=== PATIENT | male | born 1935 | race Caucasian/White ===

== ENCOUNTER 2021-03-17 20:49 | Emergency (ER) | payer MEDICARE, SELFPAY ==
[2021-03-17 20:51] VITALS: BP 128/72; PULSE 97; RESP 17; TEMP 36.6; O2SAT 99; BMI 21.5
[2021-03-17 21:00] VITALS: BP 126/78; PULSE 89; O2SAT 98
--- NOTE | 2021-03-17 21:22 | XR_ITS ---
PROCEDURE INFORMATION: Exam: XR Chest Exam date and time: 03/17/2021 9:22 PM Age: 85 years old Clinical indication: Shortness of breath; Patient HX: SOA, smoker, copd TECHNIQUE: Imaging protocol: XR of the chest. Views: 2 views. COMPARISON: CR CXR2V XR chest 2V 05/03/2018 3:25 PM FINDINGS: Lungs: There is a right infrahilar opacity which is similar to the prior exam but appears slightly denser. The left lung is clear. Pleural spaces: No sizable effusion or pneumothorax. Heart/Mediastinum: The cardiomediastinal silhouette is stable. Bones/joints: Unremarkable. IMPRESSION: Right infrahilar opacities similar to the prior exam but appears denser on today's exam. This may represent an infectious or inflammatory process however a hilar lesion cannot be excluded. This could be further characterized with chest CT with intravenous contrast.
--- NOTE | 2021-03-17 21:34 | HMH.EDEXTP ---
ED Disposition Clinical Impression: CHF (congestive heart failure) Qualifiers: Heart failure type: unspecified Heart failure chronicity: unspecified Qualified Code(s): I50.9 - Heart failure, unspecified COPD (chronic obstructive pulmonary disease) Qualifiers: COPD type: unspecified COPD Qualified Code(s): J44.9 - Chronic obstructive pulmonary disease, unspecified Pulmonary emboli Qualifiers: Pulmonary embolism type: unspecified Chronicity: unspecified Acute cor pulmonale presence: without acute cor pulmonale Qualified Code(s): I26.99 - Other pulmonary embolism without acute cor pulmonale Disposition: Home, Self-Care Condition on Discharge: Good Instructions: DI for Pulmonary Embolism, DI for Heart Failure Additional Instructions: please see card friday and call pcp Referrals: Harriett Arciniega APRN [Primary Care Provider] - - Critical Care Critical Care Time: No Attestation: On 03/17/21, the high probability of a clinically significant, sudden or life threatening deterioration of the following system(s) required my full and direct attention, intervention and personal management. The time I documented below is in addition to time spent performing reported procedures but includes the following listed in this critical care notation. Medical Decision Making - Medical Records Medical records reviewed: Yes: I reviewed the patient's medical records. - Cornel Inquiry Pt receiving controlled substance: No Vital Signs: 03/17/21 20:51 03/17/21 21:00 03/17/21 22:08 Temperature 97.8 F Temperature Source Oral Pulse Rate 89 69 Pulse Rate [Right] 97 H Respiratory Rate 17 Blood Pressure 126/78 121/79 Blood Pressure [Right Arm] 128/72 Blood Pressure Mean 88 Blood Pressure Mean [Right Arm] 90 Blood Pressure Source [Right Arm] Automatic Cuff 02 Sat by Pulse Oximetry 99 98 98 Oxygen Delivery Method Room Air Room Air 03/17/21 22:31 03/17/21 23:00 03/17/21 23:47 Temperature Temperature Source Pulse Rate 91 H 90 87 Pulse Rate [Right] Respiratory Rate Blood Pressure 132/69 117/79 122/73 Blood Pressure [Right Arm] Blood Pressure Mean Blood Pressure Mean [Right Arm] Blood Pressure Source [Right Arm] 02 Sat by Pulse Oximetry 99 98 99 Oxygen Delivery Method 03/18/21 00:01 03/18/21 00:31 03/18/21 01:01 Temperature Temperature Source Pulse Rate 77 88 89 Pulse Rate [Right] Respiratory Rate Blood Pressure 113/77 119/68 121/88 Blood Pressure [Right Arm] Blood Pressure Mean Blood Pressure Mean [Right Arm] Blood Pressure Source [Right Arm] 02 Sat by Pulse Oximetry 95 97 96 Oxygen Delivery Method 03/18/21 01:30 03/18/21 02:03 03/18/21 02:31 Temperature Temperature Source Pulse Rate 94 H 82 90 Pulse Rate [Right] Respiratory Rate Blood Pressure 130/83 127/76 110/73 Blood Pressure [Right Arm] Blood Pressure Mean Blood Pressure Mean [Right Arm] Blood Pressure Source [Right Arm] 02 Sat by Pulse Oximetry 98 95 97 Oxygen Delivery Method 03/18/21 03:00 Temperature Temperature Source Pulse Rate 93 H Pulse Rate [Right] Respiratory Rate Blood Pressure 116/80 Blood Pressure [Right Arm] Blood Pressure Mean Blood Pressure Mean [Right Arm] Blood Pressure Source [Right Arm] 02 Sat by Pulse Oximetry 96 Oxygen Delivery Method - Lab Data Lab results reviewed: Yes: I reviewed the patient's lab results. Lab Results 03/17/21 21:30: WBC 12.7 H, RBC 4.60, Hgb 13.6 L, Hct 42.0, MCV 91.3, MCH 29.6, MCHC 32.4, RDW 15.8, Plt Count 125 L, MPV 8.7, Neut % (Auto) 49.6, Lymph % (Auto) 43.6, Dent % (Auto) 5.2, Eos % (Auto) 1.2, Baso % (Auto) 0.5, Neut # (Auto) 6.3, Lymph # (Auto) 5.6 H, Dent # (Auto) 0.7, Eos # (Auto) 0.2, Baso # (Auto) 0.1, ESR 4 03/17/21 21:30: C-Reactive Protein 8.4 H, Procalcitonin 0.083 03/17/21 21:30: Sodium 136, Potassium 4.3, Chloride 106, Carbon Dioxide 23, Anion Gap 11.3, BUN 31 H, Creatinin
[2021-03-17 22:05] LABS: Microscopic, Urine URINE MICROSCOPIC (MICROSCOPIC)
[2021-03-17 22:08] VITALS: BP 121/79; PULSE 69; O2SAT 98
[2021-03-17 22:08] LABS: Basophils # 0.1 K/mm3 (0-0.2); Basophils % 0.5 % (0.1-2.0); Eosinophils # 0.2 K/mm3 (0.0-0.4); Eosinophils % 1.2 % (0.1-12.0); Hemoglobin 13.6 g/dL (14.1-18.0); Lymphocytes # 5.6 K/mm3 (0.7-4.5); Lymphocytes % 43.6 % (10-50); Mean Corpuscular HGB Conc 32.4 g/dL (31.8-35.4); Mean Corpuscular Hemoglobin 29.6 pg (27.0-31.2); Mean Corpuscular Volume 91.3 fl (80-94); Mean Platelet Volume 8.7 fl (7.4-10.4); Monocytes # 0.7 K/mm3 (0.1-1.0); Monocytes % 5.2 % (1.7-9.3); Neutrophils # 6.3 K/mm3 (1.8-7.8); Neutrophils % 49.6 % (37.0-80.0); Platelet Count 125 K/mm3 (142-424); Red Cell Distribution Width 15.8 % (11.5-17.5); White Blood Count 12.7 K/mm3 (4.8-10.8)
[2021-03-17 22:09] LABS: Appearance,Urine CLEAR (Clear); Bilirubin,Urine Negative (Negative); Blood, Urine TRACE-I (Negative); Color,Urine YELLOW (Yellow); Glucose,Urine (UA) Negative (Negative); Ketones,Urine Negative (Negative); Leukocyte Esterase,Urine Negative (Negative); Nitrate,Urine Negative (Negative); PH,Urine 5.5 (5.0-8.5); Protein,Urine Negative (Negative); Specific Gravity, Urine 1.025 (1.005-1.030); Urobilinogen,Urine 0.2 EU/dl (0.2)
[2021-03-17 22:25] LABS: Alanine Aminotransferase 24 U/L (12-78); Albumin Level 4.3 g/dl (3.5-5.0); Albumin/Globulin Ratio 1.7 (1.1-1.8); Alkaline Phosphatase 85 U/L (38-126); Anion Gap 11.3 mEq/L (5-15); Aspartate Amino Transferase 41 U/L (17-59); Bilirubin,Total 1.6 mg/dl (0.2-1.3); Blood Urea Nitrogen 31 mg/dl (9-20); Calcium 9.2 mg/dl (8.4-10.2); Carbon Dioxide 23 mmol/L (22.0-30.0); Chloride 106 mmol/L (98-107); Creatinine Clearance Estimated 40 mL/min (50-200); Estimated Glomerular Filt Rate 53 ml/min (>60); GFR (African American) 64 ML/MIN (>60); Globulin 2.6 g/dL (1.3-3.2); Glucose 106 mg/dl (74-100); Potassium 4.3 mmoL/L (3.5-5.1); Sodium 136 mmol/L (136-145); Total Protein,Serum 6.9 g/dl (6.3-8.2)
[2021-03-17 22:26] LABS: RBC,Urine Occasional #/hpf (0-3); Sperm,Urine OCC /lpf; Squamous Epithelial Cell,Urine Occasional #/hpf (0-5)
[2021-03-17 22:30] LABS: C-Reactive Protein 8.4 mg/L (0-4)
[2021-03-17 22:31] VITALS: BP 132/69; PULSE 91; O2SAT 99
[2021-03-17 22:33] LABS: NT Pro Brain Natriuretic Pep. 10400 pg/mL (0-450)
--- NOTE | 2021-03-17 22:39 | ECG_ITS ---
APPROVED REPORT Exam: Resting ECG HR:90 bpm ECG Measurements Heart Rate 90 AXES IN 170 P 67 QRSd 116 QRS 112 QT 406 T 20 QTc 496 Conclusion Sinus rhythm with frequent and consecutive premature ventricular complexes Right axis deviation Possible Anterior infarct, age undetermined Abnormal ECG Electronically signed by : Camron Moore, 03/18/2021 07:07:55
[2021-03-17 22:41] LABS: Erythrocyte Sedimentation Rate 4 mm/hr (0-20); Procalcitonin 0.083 ng/mL (0.0-2.0)
--- NOTE | 2021-03-17 22:46 | CT_ITS ---
PROCEDURE INFORMATION: Exam: CTA Chest With Contrast Exam date and time: 03/17/2021 10:46 PM Age: 85 years old Clinical indication: Shortness of breath; Patient HX: SOA, smoker TECHNIQUE: Imaging protocol: Computed tomographic angiography of the chest with contrast. 3D rendering (Not supervised by radiologist): MIP and/or 3D reconstructed images were created by the technologist. Radiation optimization: All CT scans at this facility use at least one of these dose optimization techniques: automated exposure control; mA and/or kV adjustment per patient size (includes targeted exams where dose is matched to clinical indication); or iterative reconstruction. Contrast material: ISO 370; Contrast volume: 70 ml; Contrast route: INTRAVENOUS (IV); COMPARISON: CR XR CHEST 2V 03/17/2021 9:27 PM FINDINGS: Pulmonary arteries: The pulmonary arteries are normal in caliber. There is an eccentric filling defect within a proximal segmental pulmonary artery to the right lower lobe as on series two, image 194 and series 601, image 42. Aorta: No thoracic aortic aneurysm. Lungs: No focal consolidation. There is mild central airway thickening scattered throughout both lungs. There are linear opacities in the dependent right lower lobe. There are upper lobe predominant centrilobular emphysematous changes in both lungs. There are subpleural reticular opacities scattered throughout both lungs. There are also 1-2 mm subpleural nodules in both upper lobes and there is a 5 mm right upper lobe nodule on series 2, image 142. There are bilateral calcified granulomas. Pleural spaces: There is a small right pleural effusion and trace left pleural fluid. No pneumothorax. Heart: The heart is enlarged. No pericardial effusion. No CT evidence of heart strain; the RV/LV ratio is 0.6. Lymph nodes: There are enlarged mediastinal lymph nodes. No evidence of hilar lymphadenopathy. Kidneys and ureters: Partially imaged left renal calculus versus renal vascular calcification. Intraperitoneal space: There is small volume ascites in the visualized abdomen. Bones/joints: No acute fracture. There are degenerative changes of the spine. Soft tissues: Unremarkable. IMPRESSION: 1. Eccentric filling defect within a proximal segmental pulmonary artery to the right lower lobe suspicious for a chronic pulmonary embolism. 2. Linear and subpleural reticular opacities scattered throughout both lungs, worse in the right lower lobe suspicious for subsegmental atelectasis and/or scarring, which may account for the infrahilar opacities on prior chest radiograph. 3. Mediastinal lymphadenopathy, nonspecific. 4. Pulmonary nodules scattered throughout both lungs measuring up to 5 mm in the right upper lobe. For patients at low risk (minimal or absent history of smoking and of other known risk factors), no routine follow-up is indicated. For patients at high risk (history of smoking or of other known risk factors), consider optional CT Chest at 12 months. (Reference: [place]i) 5. Small volume ascites in the visualized abdomen. THIS REPORT CONTAINS FINDINGS THAT MAY BE CRITICAL TO PATIENT CARE. The findings were verbally communicated via telephone conference with YURI STEEN at 12:32 AM EDT on 03/18/2021. The findings were acknowledged and understood. REFERENCES: [place]i Hodges, et al. Guidelines for Management of Incidental Pulmonary Nodules Detected on CT Images: From the Fleischner Society 2017. Radiology. 2017;284(1):228-243.
[2021-03-17 22:58] LABS: Troponin I 0.04 ng/ml (0.00-0.034)
[2021-03-17 23:00] VITALS: BP 117/79; PULSE 90; O2SAT 98
[2021-03-17 23:02] LABS: T4 (Thyroxine) 6.4 ug/dl (5.53-11.0)
[2021-03-17 23:16] LABS: Thyroid Stimulating Hormone 7.23 uIU/mL (0.465-4.68)
[2021-03-17 23:47] VITALS: BP 122/73; PULSE 87; O2SAT 99
[2021-03-18] VITALS (9 sets, daily range): BP systolic 109–130; BP diastolic 64–88; PULSE 77–94; RESP 18; TEMP 36.4; O2SAT 95–98
[2021-03-18 01:16] LABS: Adenovirus,PCR Not Detected (NotDetected); Bordetella Pertussis Not Detected (NotDetected); Chlamydophila Pneumoniae, PCR Not Detected (NotDetected); Coronavirus 19, PCR Not Detected (NotDetected); Coronavirus 229E Not Detected (NotDetected); Coronavirus NL63 Not Detected (NotDetected); Coronavirus OC43 Not Detected (NotDetected); Coronovirus HKU1,PCR Not Detected (NotDetected); Human Metapneumovirus Not Detected (NotDetected); Influenza A, PCR Not Detected (NotDetected); Influenza AH1, 2009 Not Detected (NotDetected); Influenza AH1, PCR Not Detected (NotDetected); Influenza AH3,PCR Not Detected (NotDetected); Influenza B, PCR Not Detected (NotDetected); Mycoplasma Pneumoniae, PCR Not Detected (NotDetected); Parainfluenza 1, PCR Not Detected (NotDetected); Parainfluenza 2, PCR Not Detected (NotDetected); Parainfluenza 3, PCR Not Detected (NotDetected); Parainfluenza 4, PCR Not Detected (NotDetected); Respiratory Syncytial Virus Not Detected (NotDetected); Rhinovirus/Enterovirus Not Detected (NotDetected)
[2021-03-18 01:53] LABS: Troponin I 0.04 ng/ml (0.00-0.034)
--- NOTE | 2021-03-18 02:53 | PC.NURSE ---
MD Fer speaking with MD Saul at this time.
--- NOTE | 2021-03-18 03:20 | PC.NURSE ---
called katie [phone] and spoke with praveen. eliquis 10mg bid x7 days. eliquis 5mg bid after that.
== END 2021-03-18 03:44 | disposition home or self-care (01) ==
PROVIDERS: Emergency Provider Emergency Medicine; PCP Nurse Practitioner Family
DX: I50.23 Acute on chronic systolic (congestive) heart failure (principal); J44.9 Chronic obstructive pulmonary disease, unspecified; I26.99 Other pulmonary embolism without acute cor pulmonale; F17.210 Nicotine dependence, cigarettes, uncomplicated; Z79.899 Other long term (current) drug therapy
CPT/HCPCS: 71046; 71275; 80053; 81001; 83880; 84145; 84436; 84443; 84484; 85025; 85651; 86140; 87581; 87633; 87798; 93005; 96374; 99283; Q9967

== ENCOUNTER 2021-03-20 11:35 | Day surgery (SDC) | payer MEDICARE, SELFPAY ==
[2021-03-20] VITALS (10 sets, daily range): BP systolic 97–127; BP diastolic 55–77; PULSE 59–87; RESP 18–20; TEMP 36.3; O2SAT 90–95; BMI 21.2
--- NOTE | 2021-03-20 07:09 | IR_ITS ---
APPROVED REPORT Patient Location: Outpatient Plug Maker: DARNELL Nair RT (R) PROCEDURES Right heart catheterization Left heart catheterization Left ventriculogram Selective coronary angiogram Selective right pulmonary artery angiogram INDICATION Recent non-ST elevation myocardial infarction, Pulmonary embolism, Systolic congestive heart failure Informed consent was obtained prior to the procedure. COMPLICATIONS NONE Estimated Blood Loss: LESS THAN 10 ML TECHNIQUE One percent lidocaine was used to anesthetize the right anterior aspect of the right wrist. The right radial artery was accessed via the Seldinger technique and a 6 Macanese hydrophilic sheath was placed in the right radial artery. Following this one percent lidocaine was used to anesthetize the right anterior aspect of the right neck. The right internal jugular vein was accessed via the Seldinger technique and a 7 Macanese sheath was placed in the right internal jugular vein. Following this an arterial cocktail was administered using 5000U heparin, 2.5 mg verapamil, 1mg Lidocaine and 800mcg nitroglycerin into the right radial sheath. A trap catheter was used to perform left heart catheterization left ventriculogram and selective coronary angiography while a Disney-Janie catheter was used to perform right heart catheterization. Saturations were obtained in the pulmonary artery and right atrium. With a Disney-Janie catheter in the right pulmonary artery and a selective pulmonary artery angiogram was performed. At the end of the procedure the arterial sheath was removed good hemostasis was achieved using Traclet band. Patient was transferred to the postop holding area in stable condition for venous sheath removal. ANGIOGRAPHIC RESULTS The left main artery Normal The left anterior descending artery Has proximal and mid vessel 10 to 20% nonflow limiting stenosis The circumflex artery Codominant with mild 10% luminal irregularities The right coronary artery Codominant with mild 10 to 20% luminal irregularities The LOMBARDO ventriculogram reveals Severe left ventricular dilatation with severely reduced ejection fraction estimated at 15% The left ventricular end-diastolic pressure 30 mmHg Right atrial pressure 20 mmHg with a prominent Y descent Pulmonary pressure 45/25 mmHg Pulmonary pressure 25 mmHg Right atrial saturation 71% Pulmonary artery saturation was 73% The right main pulmonary artery is widely patent with excellent subsegmental perfusion and excellent distal parenchymal perfusion of the entire right lung field IMPRESSION Mild nonflow limiting coronary disease Severely reduced ejection fraction consistent with cardiomyopathy Moderate pulmonary hypertension Prominent Y descent most likely reflecting severe left ventricular dysfunction. Would consider performing CT of chest with thin slices through the pericardium looking for pericardial thickness and possible constrictive pericarditis with the prominent Y descent Diuresis LifeVest while starting patient on standard therapy for systolic heart failure Consideration for BEDSPREAD SEAMER-D in the future Electronically signed by : Sahil Keller, 03/20/2021 12:48:21
[2021-03-20 14:01] LABS: CATHL Arterial O2 SAT 73.6 % (90-100); CATHL Venous O2 SAT 70.9 % (75-80)
== END 2021-03-20 15:29 | disposition home or self-care (01) ==
LOC: CATHLAB 11:40
PROVIDERS: Visit Provider Internal Medicine
DX: I21.4 Non-ST elevation (NSTEMI) myocardial infarction; I26.99 Other pulmonary embolism without acute cor pulmonale; I27.20 Pulmonary hypertension, unspecified; I49.1 Atrial premature depolarization; I49.3 Ventricular premature depolarization; I50.9 Heart failure, unspecified; J18.1 Lobar pneumonia, unspecified organism; J44.9 Chronic obstructive pulmonary disease, unspecified; R00.8 Other abnormalities of heart beat; R06.00 Dyspnea, unspecified; R77.8 Other specified abnormalities of plasma proteins; I25.118 Atherosclerotic heart disease of native coronary artery with other forms of angina pectoris
CPT/HCPCS: 82810; 93460; 99152; 99153; C1725; C1769; C1894; J1644; Q9967

== ENCOUNTER → 2021-03-23 13:34 | Outpatient (CLI) | payer MEDICARE, SELFPAY ==
--- NOTE | 2021-03-23 13:38 | CA_ITS ---
APPROVED REPORT EXAM: Comprehensive 2D, Doppler, and color-flow Echocardiogram Glazier Stained Glass: Nancy Fernandez RVT Ht: 5 ft 9 in Wt: 144lbs BSA: 1.80 BP: 132/68 mmHg Indications: CP,SOA,EF OF 15% ON CATH ON 03/20, HAS LIFEVEST,PHTN,CM,CHF,PAC,COPD,FATIGUE 2D Dimensions LVOT 2.08 cm (M/F) 1.5-2.5 LA Volume 89.20 mL LA Volume Index 49.83 mL/m2 (M/F) 16-34 M-Mode Dimensions RVDd 3.34 cm (0.9-2.6) LA Diam 5.11 cm (1.9-4.0) LVDd 6.34 cm (3.5-5.7) Ao Diam 2.65 cm (2.0-3.7) LVDs 5.81 cm (3.5-5.7) IVSd 0.95 cm (0.6-1.1) PWd 0.76 cm (0.6-1.1) E-F Hockley 113.53 cm/s EF (Teich) 18.10% EPSs 2.67 cm FS 8.40% EDV (Teich) 204.10 mL TAPSE 1.49 (<1.7) ESV (Teich) 167.20 mL LV Diastology E Decel Time 123.00 (160-240 msec) E/A Ratio 1.6 MED E' 1.90 (< 7 cm/sec) E'/MED E' Ratio 48.63 (>14) LAT E' 6.80 (<10 cm/sec) E/LAT E' Ratio 13.59 (>14) Aortic Valve AO Peak GR. 4.20 mmHg Mitral Valve MV E Max Neo. 92.00 (40-130 cm/s) MV A Velocity 57.00 (40-130 cm/s) E/A Ratio 1.64 MV Decel. Time 123.00 (160-240 ms) MV PHT 36.00 ms Pulmonary Valve PV Peak Velocity 68.00 (50-150 cm/s) Tricuspid Valve TR P. Velocity 309.00 cm/s RAP Estimate 10.00 mmHg RVSP 48.10 mmHg Left Ventricle Left atrium is moderately enlarged, left ventricle is moderately dilated, severe reduced left ventricular systolic function, visually estimated ejection fraction 20% left ventricle is globally hypokinetic, diastolic parameters are inconclusive, Doppler evidence of low cardiac output. Right Ventricle Right atrium and right ventricle moderately dilated, contractility of the right ventricle is moderately reduced. Aortic Valve Aortic valve is minimally thickened and fibrosed. There is no aortic stenosis or aortic insufficiency. Mitral Valve Mitral valve leaflets are minimally thickened, there is moderate mitral regurgitation. Tricuspid Valve Tricuspid valve grossly normal, calculated right ventricular systolic pressure is 48 mmHg. Inferior vena cava is dilated without significant inspiratory collapse. Pulmonic Valve Pulmonic valve is poorly visualized. Great Vessels Aortic root is normal size. Pericardium No significant pericardial effusion noted. Conclusion 1. Biatrial enlargement, biventricular dilatation, severe reduced left ventricular systolic function, visually estimated ejection fraction 20%, left ventricle is globally hypokinetic, Doppler evidence of low cardiac output state. 2. Moderately enlarged right ventricle with moderate reduction right ventricular contractility. 3. Moderate mitral and mild tricuspid regurgitation, calculated right ventricular systolic pressure is 48 mmHg. 4. No significant pericardial effusion noted, inferior vena cava is mildly dilated without significant inspiratory collapse . Electronically signed by : Severo Andrew, 03/27/2021 18:34:54
== END ==
PROVIDERS: PCP Nurse Practitioner Family; Visit Provider Nurse Practitioner Family
DX: I20.8 Other forms of angina pectoris (principal); I21.4 Non-ST elevation (NSTEMI) myocardial infarction; I26.99 Other pulmonary embolism without acute cor pulmonale; I27.20 Pulmonary hypertension, unspecified; I49.1 Atrial premature depolarization; I49.3 Ventricular premature depolarization; I50.9 Heart failure, unspecified; J18.1 Lobar pneumonia, unspecified organism; J44.9 Chronic obstructive pulmonary disease, unspecified; R00.8 Other abnormalities of heart beat; R06.00 Dyspnea, unspecified; R77.8 Other specified abnormalities of plasma proteins; R94.31 Abnormal electrocardiogram [ECG] [EKG]
CPT/HCPCS: 93306

== ENCOUNTER → 2021-05-08 12:59 | Outpatient (CLI) | payer MEDICARE, SELFPAY ==
--- NOTE | 2021-05-08 13:01 | CA_ITS ---
APPROVED REPORT EXAM: Limited 2D Echocardiogram Stamping Mill Tender: Nancy Fernandez RVT Ht: 5 ft 10 in Wt: 134lbs BSA: 1.76 BP: 96/54 mmHg Indications: EF CHECK, LIFEVEST EF OF 20% ON 03/23/21 CAD,CHF 2D Dimensions LVOT 1.96 cm (M/F) 1.5-2.5 M-Mode Dimensions RVDd 3.21 cm (0.9-2.6) LA Diam 4.27 cm (1.9-4.0) LVDd 5.97 cm (3.5-5.7) Ao Diam 2.40 cm (2.0-3.7) LVDs 5.25 cm (3.5-5.7) IVSd 1.11 cm (0.6-1.1) PWd 0.86 cm (0.6-1.1) EF (Teich) 25.60% FS 12.10% EDV (Teich) 177.90 mL ESV (Teich) 132.40 mL Conclusion 1. Limited echocardiogram was performed to evaluate left ventricular systolic function, Definity contrast was utilized to delineate the endocardial surfaces. 2. The left ventricle is mildly dilated, visually estimated ejection fraction 20%, left ventricle is globally hypokinetic, there is no left ventricular thrombus seen. 3. No significant pericardial effusion noted. Electronically signed by : Severo Andrew, 05/08/2021 19:29:22
== END ==
PROVIDERS: PCP Family Medicine; Visit Provider Urology
DX: R06.00 Dyspnea, unspecified (principal)
CPT/HCPCS: 93308; Q9957

== ENCOUNTER → 2021-05-15 08:53 | Outpatient (CLI) | payer MEDICARE, SELFPAY ==
[2021-05-15 09:19] LABS: Basophils # 0.2 K/mm3 (0-0.2); Basophils % 1.6 % (0.1-2.0); Eosinophils # 0.4 K/mm3 (0.0-0.4); Eosinophils % 3.2 % (0.1-12.0); Hematocrit 45.5 % (42.0-52.0); Hemoglobin 15.6 g/dL (14.1-18.0); Lymphocytes # 6.9 K/mm3 (0.7-4.5); Lymphocytes % 53.4 % (10-50); Mean Corpuscular HGB Conc 34.3 g/dL (31.8-35.4); Mean Corpuscular Hemoglobin 30.2 pg (27.0-31.2); Mean Corpuscular Volume 88.2 fl (80-94); Mean Platelet Volume 8.2 fl (7.4-10.4); Monocytes # 0.7 K/mm3 (0.1-1.0); Monocytes % 5.3 % (1.7-9.3); Neutrophils # 4.7 K/mm3 (1.8-7.8); Neutrophils % 36.5 % (37.0-80.0); Platelet Count 187 K/mm3 (142-424); Red Blood Count 5.15 M/mm3 (4.60-6.20); Red Cell Distribution Width 14.7 % (11.5-17.5); White Blood Count 12.8 K/mm3 (4.8-10.8)
[2021-05-15 09:34] LABS: MANUAL DIFFERENTIAL MANUAL DIFFERENTIAL (MANUAL DIFF)
[2021-05-15 09:45] LABS: Chloride 104 mmol/L (98-107); Potassium 4.5 mmoL/L (3.5-5.1); Sodium 140 mmol/L (136-145)
[2021-05-15 09:48] LABS: Anion Gap 11.5 mEq/L (5-15); Blood Urea Nitrogen 18 mg/dl (9-20); Carbon Dioxide 29 mmol/L (22.0-30.0); Estimated Glomerular Filt Rate 71 ml/min (>60); GFR (African American) 86 ML/MIN (>60)
[2021-05-15 09:49] LABS: Calcium 9.3 mg/dl (8.4-10.2); Glucose 126 mg/dl (74-100)
[2021-05-15 10:00] LABS: Eosinophils % 1 % (0-3); Lymphocytes % 33 % (10-50); Monocytes % 18 % (2-9); Neutrophils % 48 % (42-76); Total Cells Counted 100
[2021-05-15 10:01] LABS: Hypochromasia 1+; Platelet Estimate Normal
== END ==
PROVIDERS: Visit Provider Urology
DX: I25.10 Atherosclerotic heart disease of native coronary artery without angina pectoris (principal); I50.23 Acute on chronic systolic (congestive) heart failure; I50.9 Heart failure, unspecified; Z95.810 Presence of automatic (implantable) cardiac defibrillator; Z01.812 Encounter for preprocedural laboratory examination; Z20.822 Contact with and (suspected) exposure to COVID-19
CPT/HCPCS: 36415; 80048; 85007; 85025; U0003

== ENCOUNTER 2021-05-17 07:15 | Day surgery (SDC) | payer MEDICARE, SELFPAY ==
[2021-05-17] VITALS (11 sets, daily range): BP systolic 107–141; BP diastolic 52–84; PULSE 70–88; RESP 13–18; TEMP 36.6; O2SAT 95–99; BMI 19.5
--- NOTE | 2021-05-17 | IR_ITS ---
APPROVED REPORT Patient Location: Outpatient Theatrical Trouper: DARNELL Merino RT (R) PROCEDURES 1. Pocket formation for biventricular pacemaker generator with cardiac resynchronization/defibrillator therapy. 2. Placement of atrial sensing and pacing lead into the right atrial appendage. 3. Placement of a right ventricular sensing, pacing and shocking lead in the right ventricular apex. 4. Placement of left ventricular sensing pacing lead via the coronary sinus. 5. Permanent cardiac resynchronization therapy with ICD implantation/biventricular pacemaker. INDICATION Systolic Congestive Heart Failure, ejection <35%, Wide QRS >120ms, [place] Heart Assoication Class 3 Congestive Heart Failure Informed consent was obtained prior to the procedure. COMPLICATIONS None Estimated Blood Loss: Less than 10 mls TECHNIQUE 1% Lidocaine with epinephrine used to anesthetized the left anterior aspect of the chest. Scalpel was used to make the initial cutaneous incision while electrocautery was used to dissect down tinto the fascia. The fascia was lifted off the pectoralis muscle and digitally manipulated creating a pocket for the defibrillator. The patient was then placed in Trendelenburg position and the subclavian vein was accessed 3 times via the Selinger technique. A 8 Macedonian sheath was placed under fluoroscopic guidance into the subclavian vein. The dilator was removed from the sheath. Using fluoroscopic guidance, the ventricular lead was placed into the right ventricular apex, screwed and secured into place. Electronic interrogation proved acceptable thresholds and voltage within the lead. Using 3-0 silk, the ventricular lead was then secured into place and sheath peeled away. Following this, a 9.5 Macedonian sheath and dilator was then placed over one of the wires while keeping the other wire in place within the subclavian vein. The dilator was removed from the sheath. Using fluoroscopic guidance, contrast was used to visualize the coronary sinus, the left ventricular lead was placed into the coronary sinus. Electronic interrogation proved acceptable thresholds and voltage within the lead. Using 3-0 silk, the left ventricular lead was then secured into place and sheath peeled away.An additional 6 Macedonian fresh sheath and dilator was placed over the existing wire. Using fluoroscopic guidance, the atrial lead was then placed into the right atrial appendage and screwed and secured in place. Electrical interrogation demonstrated acceptable thresholds and voltage number. The atrial lead was then secured into place using 3-0 silk and sheath peeled away. 1 gram of Ancef was used to flush the pocket. All 3 leads were connected to generator and tested via computer. The defibrillator then secured to the fascia. Monocryl was used to close the subcutaneous layers while socorro were used to close the cutaneous layer. A pressure dressing was placed and the patient was transferred to the postop holding area in stable condition for postoperative care. INTERROGATION Generator Model number: VIGILANT X4 WINDOWS SERVER ARCHITECT-D, G247 Generator Serial number: [id number] Atrial lead model number: INGEVITY+ 52cm, 7841 Atrial lead serial number: [id number] P-wave: 2.0 mV Impedence: 553 ohms Threshold: 1.5V@0.4ms Left Ventricular lead model number: ACUITY X4 Straight 86cm, 4671 Left Ventricular lead serial number: [id number] R-wave: 9.0 mV Impedence: 1389 ohms Threshold: 2.0V@1.0ms Right Ventricular lead model number: [place] 4-FRONT 59cm, 0675 Right Ventricular lead serial number: [id number] R-wave: 18.0 mV Impedence: 562 ohms Threshold: 0.5V@0.5ms Pacing Parameters: Mode: DDDR Base/Max Track: 60/130 ppm
--- NOTE | 2021-05-17 10:27 | XR_ITS ---
PROCEDURE: XR CHEST PORTABLE CLINICAL HISTORY: post pacemaker COMPARISON: CR CXR2V XR chest 2V from 05/03/2018 CR XR CHEST 2V from 03/17/[address] ANGIO CHEST from 03/17/2021 FINDINGS: Dual-chamber pacemaker is noted. Surgical socorro are noted overlying the left lung apex. Evidence of pneumothorax, focal consolidation or pleural effusions. The cardiac size and central pulmonary vasculature within normal limits. Visualized osseous structures are unremarkable. Vascular calcification is noted. IMPRESSION: No evidence of pneumothorax. Dictated by: Pallavi Loera 05/17/2021 11:00 Palalvi Loera in OV 05/17/2021 11:00
== END 2021-05-17 12:29 | disposition home or self-care (01) ==
LOC: CATHLAB 07:23
PROVIDERS: PCP Family Medicine; Visit Provider Internal Medicine
PROC: 0JH609Z Insertion of Cardiac Resynchronization Defibrillator Pulse Generator into Chest Subcutaneous Tissue and Fascia, Open Approach (ICD-10-PCS; CPT 33249; principal; 2021-05-17 11:00)
DX: I25.10 Atherosclerotic heart disease of native coronary artery without angina pectoris (principal); I25.2 Old myocardial infarction; I50.23 Acute on chronic systolic (congestive) heart failure; Z79.01 Long term (current) use of anticoagulants; F17.210 Nicotine dependence, cigarettes, uncomplicated; I42.9 Cardiomyopathy, unspecified; Z79.899 Other long term (current) drug therapy
CPT/HCPCS: 33249; 71045; C1769; C1882; C1895; C1898; C1900; Q9967

== ENCOUNTER → 2021-06-04 09:19 | Outpatient (CLI) | payer MEDICARE, SELFPAY | PROVIDERS: Visit Provider Ophthalmology | DX: Z01.812 Encounter for preprocedural laboratory examination (principal); Z20.822 Contact with and (suspected) exposure to COVID-19 | CPT/HCPCS: U0003 ==

== ENCOUNTER 2021-06-05 09:38 | Day surgery (SDC) | payer MEDICARE, SELFPAY ==
[2021-06-05 10:52] VITALS: BP 105/64; PULSE 66; RESP 18; TEMP 36.6; O2SAT 99; BMI 19.0
[2021-06-05 11:49] VITALS: BP 121/60; PULSE 65; RESP 18; O2SAT 99
[2021-06-05 11:54] VITALS: BP 113/54; PULSE 61; RESP 18; O2SAT 100
[2021-06-05 11:59] VITALS: BP 103/55; PULSE 60; RESP 18; O2SAT 100
[2021-06-05 12:04] VITALS: BP 103/56; PULSE 60; RESP 18; O2SAT 100
[2021-06-05 12:10] VITALS: BP 108/60; PULSE 60; RESP 16; TEMP 36.4; O2SAT 96
== END 2021-06-05 12:17 | disposition home or self-care (01) ==
LOC: OR 09:42
PROVIDERS: PCP Family Medicine; Visit Provider Ophthalmology
DX: H25.813 Combined forms of age-related cataract, bilateral (principal); H53.149 Visual discomfort, unspecified; H02.831 Dermatochalasis of right upper eyelid; H02.834 Dermatochalasis of left upper eyelid; Z72.0 Tobacco use; I27.20 Pulmonary hypertension, unspecified; I25.10 Atherosclerotic heart disease of native coronary artery without angina pectoris; Z95.810 Presence of automatic (implantable) cardiac defibrillator; J44.9 Chronic obstructive pulmonary disease, unspecified
CPT/HCPCS: 66984; V2632

== ENCOUNTER → 2021-06-16 10:16 | Outpatient (CLI) | payer MEDICARE, SELFPAY | PROVIDERS: Visit Provider Ophthalmology | DX: Z01.812 Encounter for preprocedural laboratory examination (principal); Z20.822 Contact with and (suspected) exposure to COVID-19 | CPT/HCPCS: U0003 ==

== ENCOUNTER 2021-06-19 06:25 | Day surgery (SDC) | payer MEDICARE, SELFPAY ==
[2021-06-13 14:24] VITALS: BMI 18.9
[2021-06-19 06:37] VITALS: BP 115/63; PULSE 67; RESP 18; TEMP 36.4; O2SAT 99
[2021-06-19 07:45] VITALS: BP 131/57; PULSE 65; RESP 16; O2SAT 100
[2021-06-19 07:50] VITALS: BP 112/55; PULSE 62; RESP 16; O2SAT 99
[2021-06-19 07:55] VITALS: BP 104/57; PULSE 60; RESP 16; O2SAT 99
[2021-06-19 08:00] VITALS: BP 102/58; PULSE 60; RESP 16; O2SAT 99
[2021-06-19 08:07] VITALS: BP 106/61; PULSE 68; RESP 16; TEMP 36.2; O2SAT 98
== END 2021-06-19 08:15 | disposition home or self-care (01) ==
LOC: OR 06:28
PROVIDERS: PCP Family Medicine; Visit Provider Ophthalmology
DX: H25.813 Combined forms of age-related cataract, bilateral (principal); H53.149 Visual discomfort, unspecified; H02.831 Dermatochalasis of right upper eyelid; H02.834 Dermatochalasis of left upper eyelid; Z95.810 Presence of automatic (implantable) cardiac defibrillator; I11.0 Hypertensive heart disease with heart failure; I50.9 Heart failure, unspecified; J44.9 Chronic obstructive pulmonary disease, unspecified; I26.99 Other pulmonary embolism without acute cor pulmonale; I27.20 Pulmonary hypertension, unspecified; I42.9 Cardiomyopathy, unspecified; Z79.899 Other long term (current) drug therapy
CPT/HCPCS: 66984; V2632

== ENCOUNTER → 2021-07-09 10:38 | Outpatient (CLI) | payer MEDICARE, SELFPAY | PROVIDERS: PCP Emergency Medicine; Visit Provider Nurse Practitioner | DX: Z20.822 Contact with and (suspected) exposure to COVID-19 (principal) ==

== ENCOUNTER 2021-08-28 17:58 | Observation (INO) | payer MEDICARE, SELFPAY ==
[2021-08-28] VITALS (8 sets, daily range): BP systolic 135–147; BP diastolic 70–73; PULSE 83–104; RESP 18–38; TEMP 36.7–37.2; O2SAT 91–95; BMI 18.9; BMI 18.7
--- NOTE | 2021-08-28 17:53 | ECG_ITS ---
APPROVED REPORT Exam: Resting ECG HR:99 bpm ECG Measurements Heart Rate 99 AXES NV 162 P 78 QRSd 120 QRS 106 QT 372 T -76 QTc 477 Conclusion Electronic ventricular pacemaker Electronically signed by : Camron Moore MD 08/29/2021 21:38:50
--- NOTE | 2021-08-28 18:10 | XR_ITS ---
PROCEDURE INFORMATION: Exam: XR Chest Exam date and time: 08/28/2021 6:10 PM Age: 85 years old Clinical indication: Cough and shortness of breath; Smoker's cough; Prior surgery; Surgery date: 6+ months; Surgery type: Pacemaker; Patient HX: Cough; SOA; Smoker; Additional info: SOB TECHNIQUE: Imaging protocol: XR of the chest. Views: 1 view. Total images: 1 COMPARISON: CR XR CHEST PORTABLE 05/17/2021 10:36 AM FINDINGS: Lungs: Moderate hyperexpansion and hyperlucency with diaphragmatic flattening suggesting COPD. Pulmonary vasculature grossly normal. Question bronchial wall thickening suspicious for chronic bronchitis. No gross pulmonary infiltrates or edema pattern. Scattered areas of faint peripheral fibrosis in the mid lung distributions grossly unchanged from CT 03/17/2021. Pleural spaces: No pleural effusion. No pneumothorax. Heart/Mediastinum: Heart size normal. Cardiac pacemaker without gross hardware complication or change. No tracheal/mediastinal shift. Bones/joints: No acute osseous abnormalities are identified. Osteopenia. IMPRESSION: 1. No gross pulmonary infiltrates or edema pattern. Question bronchial wall thickening suggesting chronic bronchitis. 2. Evidence of COPD. 3. Cardiac pacemaker without gross hardware complication or change.
--- NOTE | 2021-08-28 18:16 | HMH.EDGENADL ---
ED Disposition Clinical Impression: COPD exacerbation CHF exacerbation Qualifiers: Heart failure type: unspecified Qualified Code(s): I50.9 - Heart failure, unspecified Disposition: Admitted As Inpatient Condition on Discharge: Fair Referrals: Angel Chapa MD [Primary Care Provider] - Time of Disposition: 19:30 - Critical Care Critical Care Time: No Attestation: On 08/28/21, the high probability of a clinically significant, sudden or life threatening deterioration of the following system(s) required my full and direct attention, intervention and personal management. The time I documented below is in addition to time spent performing reported procedures but includes the following listed in this critical care notation. Medical Decision Making - Medical Records Medical records reviewed: Yes: I reviewed the patient's medical records. - Cornel Inquiry Pt receiving controlled substance: No Vital Signs: 08/28/21 17:59 Temperature 98.9 F Temperature Source Oral Pulse Rate [Radial] 104 H Respiratory Rate 38 H Blood Pressure [Right Arm] 147/73 H Blood Pressure Mean [Right Arm] 97 Blood Pressure Position [Right Arm] Sitting 02 Sat by Pulse Oximetry 92 L Oxygen Delivery Method Room Air - Lab Data Lab results reviewed: Yes: I reviewed the patient's lab results. Lab Results 08/28/21 18:00: WBC 19.6 H, RBC 4.69, Hgb 14.9, Hct 45.1, MCV 96.2 H, MCH 31.8 H, MCHC 33.0, RDW 12.7, Plt Count 147, MPV 7.9, Neut % (Auto) 55.6, Lymph % (Auto) 38.4, Day % (Auto) 3.3, Eos % (Auto) 1.7, Baso % (Auto) 1.0, Neut # (Auto) 10.9 H, Lymph # (Auto) 7.5 H, Day # (Auto) 0.6, Eos # (Auto) 0.3, Baso # (Auto) 0.2, Total Counted 100, Neutrophils % (Manual) 55, Lymphocytes % (Manual) 35, Monocytes % (Manual) 8, Eosinophils % (Manual) 2, Platelet Estimate Normal 08/28/21 18:00: Sodium 140, Potassium 4.1, Chloride 101, Carbon Dioxide 30, Anion Gap 13.1, BUN 23 H, Creatinine 1.20, Estimated Creat Clear 40, Estimated GFR 58 L, Est GFR ( Amer) 70, Glucose 113 H, Calcium 9.6, Total Bilirubin 0.9, AST 33, ALT 15, Alkaline Phosphatase 106, Troponin I 0.02, Total Protein 8.0, Albumin 4.4, Globulin 3.6 H, Albumin/Globulin Ratio 1.2 08/28/21 18:00: NT-Pro-B Natriuret Pep 4520 H Result diagrams: 08/28/21 18:00 08/28/21 18:00 Orders (Tests/Meds): ED MEDICATIONS Discontinued Medications Generic Name Dose Route Start Last Admin Trade Name Freq PRN Reason Stop Dose Admin Albuterol/Ipratropium 3 ml 08/28/21 18:20 Ipratropium/Albuterol 3 Ml Neb IH 08/28/21 18:21 ONCE ONE Furosemide 40 mg 08/28/21 19:18 Furosemide 40mg/4ml Vial IV 08/28/21 19:19 ONCE ONE Methylprednisolone Sodium Succinate 125 mg 08/28/21 18:20 08/28/21 18:26 Methylprednisolone Sod Succ 125mg Vial IV 08/28/21 18:21 125 mg ONCE ONE Administration ORDERS Category Date Time Status Rapid PCR Covid and Flu A/B Stat Lab 08/28/21 17:58 Received Troponin I Q3H Lab 08/28/21 21:15 Ordered Troponin I Q3H Lab 08/29/21 00:15 Ordered - Radiology Data #1 Image(s): Chest Image Reviewed: Yes I have reviewed radiologist's interpretation Preliminary Findings: Abnormal COPD exacerbation - ECG Data Tracing #1 I reviewed this ECG and interpreted as documented below: Paced rhythm, no ST elevation or depression. ECG initial impression date: 08/28/21 ECG initial impression time: 17:56 Medical Decision Narrative: 85yo M evaluated for cough and shortness of breath. Patient in no acute distress on this evaluation. His O2 sat is no to be 91%. Patient has coarse lung sounds throughout with crackles and end expiratory wheezing. We will treat the patient with steroids and a DuoNeb at this time. Laboratory studies are pending. EKG is paced rhythm and no other acute findings. Chest x-ray pending. Patient's white count 19.6. Metabolic panel reveals a normal creatinine. Patient's troponin is measurable at 0.02. His BNP is elevated
[2021-08-28 18:27] LABS: Coronavirus 19, PCR Not Detected (NotDetected); Influenza A, PCR Not Detected (NotDetected); Influenza B, PCR Not Detected (NotDetected)
[2021-08-28 18:29] LABS: Basophils # 0.2 K/mm3 (0-0.2); Eosinophils # 0.3 K/mm3 (0.0-0.4); Eosinophils % 1.7 % (0.1-12.0); Hematocrit 45.1 % (42.0-52.0); Hemoglobin 14.9 g/dL (14.1-18.0); Lymphocytes # 7.5 K/mm3 (0.7-4.5); Lymphocytes % 38.4 % (10-50); Mean Corpuscular Hemoglobin 31.8 pg (27.0-31.2); Mean Corpuscular Volume 96.2 fl (80-94); Mean Platelet Volume 7.9 fl (7.4-10.4); Monocytes # 0.6 K/mm3 (0.1-1.0); Monocytes % 3.3 % (1.7-9.3); Neutrophils # 10.9 K/mm3 (1.8-7.8); Neutrophils % 55.6 % (37.0-80.0); Platelet Count 147 K/mm3 (142-424); Red Blood Count 4.69 M/mm3 (4.60-6.20); Red Cell Distribution Width 12.7 % (11.5-17.5); White Blood Count 19.6 K/mm3 (4.8-10.8)
[2021-08-28 18:30] LABS: Alanine Aminotransferase 15 U/L (12-78); Albumin Level 4.4 g/dl (3.5-5.0); Albumin/Globulin Ratio 1.2 (1.1-1.8); Alkaline Phosphatase 106 U/L (38-126); Anion Gap 13.1 mEq/L (5-15); Aspartate Amino Transferase 33 U/L (17-59); Bilirubin,Total 0.9 mg/dl (0.2-1.3); Blood Urea Nitrogen 23 mg/dl (9-20); Calcium 9.6 mg/dl (8.4-10.2); Carbon Dioxide 30 mmol/L (22.0-30.0); Chloride 101 mmol/L (98-107); Creatinine Clearance Estimated 40 mL/min (50-200); Estimated Glomerular Filt Rate 58 ml/min (>60); GFR (African American) 70 ML/MIN (>60); Globulin 3.6 g/dL (1.3-3.2); Glucose 113 mg/dl (74-100); Potassium 4.1 mmoL/L (3.5-5.1); Sodium 140 mmol/L (136-145)
[2021-08-28 18:42] LABS: MANUAL DIFFERENTIAL MANUAL DIFFERENTIAL (MANUAL DIFF)
[2021-08-28 19:03] LABS: NT Pro Brain Natriuretic Pep. 4520 pg/mL (0-450)
[2021-08-28 19:06] LABS: Troponin I 0.02 ng/ml (0.00-0.034)
[2021-08-28 19:16] LABS: Eosinophils % 2 % (0-3); Lymphocytes % 35 % (10-50); Monocytes % 8 % (2-9); Neutrophils % 55 % (42-76); Platelet Estimate Normal; Total Cells Counted 100
--- NOTE | 2021-08-28 20:25 | PC.NURSE ---
PT ARRIVED TO FLOOR VIA W/C FROM ED W/STAFF @ 2024
[2021-08-28 21:43] LABS: Troponin I 0.02 ng/ml (0.00-0.034)
[2021-08-29] VITALS: PULSE 70
[2021-08-29 00:46] LABS: Troponin I 0.02 ng/ml (0.00-0.034)
[2021-08-29 04:00] VITALS: BP 117/64; PULSE 80; PULSE 82; RESP 19; TEMP 36.6; O2SAT 91
[2021-08-29 04:40] VITALS: BMI 18.6
--- NOTE | 2021-08-29 04:52 | PC.NURSE ---
Pt rested well thus far in shift. Remains on RA with O2 ranging from 91%-95%. Pt denies any SOA at this time. Pt can ambulate independently to and from bathroom in room.
[2021-08-29 06:27] VITALS: PULSE 89; PULSE 92
[2021-08-29 07:09] LABS: Blood Urea Nitrogen 32 mg/dl (9-20); Calcium 9.2 mg/dl (8.4-10.2); Carbon Dioxide 25 mmol/L (22.0-30.0); Chloride 101 mmol/L (98-107); Creatinine Clearance Estimated 36 mL/min (50-200); Estimated Glomerular Filt Rate 53 ml/min (>60); GFR (African American) 64 ML/MIN (>60); Glucose 169 mg/dl (74-100); Sodium 140 mmol/L (136-145)
--- NOTE | 2021-08-29 07:12 | HMH.PHAVTE ---
[facility] Pharmacy VTE Monitoring - Patient Demographics Admission date: 08/28/21 Report Date: 08/29/21 Time: 07:12 Allergies/Adverse Reactions: Patient Allergies No Known Allergies Allergy (Verified 08/27/21 13:22) Height: 1.78 m Weight: 59.109 kg Patient Problems: Current Active Problems (Last Updated 04/18/21 @ 09:11 by Aneta Carlos RN) CHF exacerbation (Acute) COPD exacerbation (Acute) - VTE Risk Labs: VTE Related Lab Results Hgb 14.9 g/dL (14.1-18.0) 08/28/21 18:00 Hct 45.1 % (42.0-52.0) 08/28/21 18:00 Plt Count 147 K/mm3 (142-424) 08/28/21 18:00 BUN 32 mg/dl (9-20) H D 08/29/21 06:13 Creatinine 1.30 mg/dl (0.66-1.25) H 08/29/21 06:13 Estimated Creat Clear 36 mL/min (50-200) 08/29/21 06:13 Was VTE Risk Assessment Performed: Yes VTE Score: 5 VTE Risk Level: Low Risk Clinical Trial Participant: No - Prophylaxis VTE Prophylaxis Ordered?: Yes Types of VTE Prophylaxis: IPCS Knee High, Pharmacological (ELIQUIS + LOVENOX) Pharmacologic Type: Enoxaparin
[2021-08-29 07:38] LABS: Basophils # 0.1 K/mm3 (0-0.2); Basophils % 0.4 % (0.1-2.0); Hematocrit 44.5 % (42.0-52.0); Lymphocytes # 6.6 K/mm3 (0.7-4.5); Lymphocytes % 50.8 % (10-50); Mean Corpuscular HGB Conc 31.4 g/dL (31.8-35.4); Mean Corpuscular Hemoglobin 30.5 pg (27.0-31.2); Mean Corpuscular Volume 97.3 fl (80-94); Mean Platelet Volume 8.2 fl (7.4-10.4); Monocytes # 0.1 K/mm3 (0.1-1.0); Monocytes % 0.9 % (1.7-9.3); Neutrophils # 6.2 K/mm3 (1.8-7.8); Neutrophils % 47.9 % (37.0-80.0); Platelet Count 142 K/mm3 (142-424); Red Blood Count 4.58 M/mm3 (4.60-6.20); Red Cell Distribution Width 12.6 % (11.5-17.5)
--- NOTE | 2021-08-29 07:40 | HMH.HPDC ---
General - General Admission date:: 08/28/21 Discharge date: 08/29/21 *Admission Date: 08/28/21 *Chief complaint: Shortness of breath *History of present illness: 85-year-old male with history of cardiomyopathy with a EF of 20% and a 70-year history of cigarette use presented to the emergency department with increasing cough, chest congestion and sensation of wheezing. Patient's primary care physician has told him he likely has COPD. He continues to smoke. He has home nebulized medicines to use but only uses these about once per week. In the ER patient was able to maintain sats above 90% on room air. He had abnormal lung exam. Chest x-ray was negative for pneumonia but white blood cell count was elevated. Patient was admitted for observation. [facility] History I have reviewed the patient's past medical history: Yes Medical History: Reports:: Congestive Heart Failure, Chronic Obstructive Pulmonary Disease (COPD), Coronary Artery Disease, Hypertension Denies:: Cancer, Diabetes Mellitus Type 1, Diabetes Mellitus Type 2, Internal Pacemaker, MRSA, Seizures *Have you ever received a pneumonia vaccine?: No *Have you received a flu vaccine this season?: Yes Other Medical History: Denies: Blood Transfusion Reaction Other Surgeries: Yes: No Previous Surgery, Cardiac Catheterization, Cholecystectomy, Colonoscopy. No: Pacemaker Amputation: No Fractures: No - *Social History Smoking Status: Current every day smoker Tobacco Type: cigarettes # Packs/Day (cigarettes): 1 Alcohol Intake: never *Occupational Status:: retired Housing: house Household Members: spouse *Travel in the last 8 weeks: None Family Hx:: No significant family history Review of Systems - Review of Systems Review of systems:: pertinent systems reviewed and negative unless documented below Exam Vital signs and Labs for Last 24 Hours: Temp Pulse Resp BP Pulse Ox 98 F 92 H 19 117/64 91 L 08/29/21 04:00 08/29/21 06:27 08/29/21 04:00 08/29/21 04:00 08/29/21 04:00 Laboratory Results - last 24 hr 08/28/21 17:58: SARS-CoV-2 (PCR) Not detected, Influenza A Untype (PCR) Not detected, Influenza Type B (PCR) Not detected 08/28/21 18:00: WBC 19.6 H, RBC 4.69, Hgb 14.9, Hct 45.1, MCV 96.2 H, MCH 31.8 H, MCHC 33.0, RDW 12.7, Plt Count 147, MPV 7.9, Neut % (Auto) 55.6, Lymph % (Auto) 38.4, [place] % (Auto) 3.3, Eos % (Auto) 1.7, Baso % (Auto) 1.0, Neut # (Auto) 10.9 H, Lymph # (Auto) 7.5 H, [place] # (Auto) 0.6, Eos # (Auto) 0.3, Baso # (Auto) 0.2, Total Counted 100, Neutrophils % (Manual) 55, Lymphocytes % (Manual) 35, Monocytes % (Manual) 8, Eosinophils % (Manual) 2, Platelet Estimate Normal 08/28/21 18:00: Sodium 140, Potassium 4.1, Chloride 101, Carbon Dioxide 30, Anion Gap 13.1, BUN 23 H, Creatinine 1.20, Estimated Creat Clear 40, Estimated GFR 58 L, Est GFR ( Amer) 70, Glucose 113 H, Calcium 9.6, Total Bilirubin 0.9, AST 33, ALT 15, Alkaline Phosphatase 106, Troponin I 0.02, Total Protein 8.0, Albumin 4.4, Globulin 3.6 H, Albumin/Globulin Ratio 1.2 08/28/21 18:00: NT-Pro-B Natriuret Pep 4520 H 08/28/21 21:16: Troponin I 0.02 08/29/21 00:18: Troponin I 0.02 08/29/21 06:13: Sodium 140, Potassium 4.0, Chloride 101, Carbon Dioxide 25, Anion Gap 18.0 H, BUN 32 H D, Creatinine 1.30 H, Estimated Creat Clear 36, Estimated GFR 53 L, Est GFR ( Amer) 64, Glucose 169 H D, Calcium 9.2 I & O for Last 24 hours: Intake & Output 08/26/21 08/27/21 08/28/21 08/29/21 11:59 11:59 11:59 11:59 Weight 130 lb 5 oz - Constitutional no acute distress - *Routine HEENT Exam Head: Present: normocephalic Eye: Present: EOMI, PERRL ENT: Present: mucous membranes moist - *Routine Neck Exam Present: supple. Absent: lymphadenopathy - *Routine Respiratory Exam Present: rhonchi - *Routine Cardiovascular Exam Present: RRR - *Routine Abdominal Exam Present: soft, normoactive bowel sounds. Absent: tenderness - *Routine Rectal Exam Rectal:: deferred - *Routine Genit
[2021-08-29 07:42] LABS: MANUAL DIFFERENTIAL MANUAL DIFFERENTIAL (MANUAL DIFF)
[2021-08-29 08:00] VITALS: BP 112/64; PULSE 104; PULSE 65; RESP 16; TEMP 36.9; O2SAT 90
[2021-08-29 08:20] LABS: Eosinophils % 1 % (0-3); Lymphocytes % 43 % (10-50); Monocytes % 1 % (2-9); Neutrophils % 53 % (42-76); Platelet Estimate Normal; Total Cells Counted 100
== END 2021-08-29 09:58 | disposition home or self-care (01) ==
LOC: ER 19:30 → 2ND 19:51
PROVIDERS: Admitting Provider Family Medicine; Emergency Provider Family Medicine; PCP Family Medicine; Visit Provider Family Medicine
DX: I50.9 Heart failure, unspecified (principal); Z20.822 Contact with and (suspected) exposure to COVID-19; J44.1 Chronic obstructive pulmonary disease with (acute) exacerbation; Z79.899 Other long term (current) drug therapy; Z79.01 Long term (current) use of anticoagulants; I11.0 Hypertensive heart disease with heart failure; F17.210 Nicotine dependence, cigarettes, uncomplicated; I25.10 Atherosclerotic heart disease of native coronary artery without angina pectoris
CPT/HCPCS: G0378; 36415; 71045; 80048; 80053; 83880; 84484; 85007; 85025; 93005; 94640; 96375; 99284; C9803; J0456; U0003; U0005

== ENCOUNTER → 2021-12-06 10:30 | Outpatient (CLI) | payer MEDICARE, SELFPAY ==
--- NOTE | 2021-12-06 10:40 | CA_ITS ---
APPROVED REPORT EXAM: Comprehensive 2D, Doppler, and color-flow Echocardiogram Product Development Coordinator: Padma Longo CRT Ht: 5 ft 10 in Wt: 140lbs BSA: 1.79 BP: 130/60 mmHg Indications: Shortness of Breath, Fatigue, CAD, Cardiomyopathy, AICD, 20% EF 03/23/21 ECHO, WORE LIFEVEST, SOB, PUL HTN 2D Dimensions LVOT 2.00 cm (M/F) 1.5-2.5 LA Volume 43.80 mL LA Volume Index 24.50 mL/m2 (M/F) 16-34 M-Mode Dimensions RVDd 2.58 cm (0.9-2.6) LA Diam 3.75 cm (1.9-4.0) LVDd 6.24 cm (3.5-5.7) Ao Diam 3.49 cm (2.0-3.7) LVDs 5.13 cm (3.5-5.7) IVSd 1.02 cm (0.6-1.1) PWd 0.81 cm (0.6-1.1) EF (Teich) 36.30% FS 17.80% EDV (Teich) 196.90 mL TAPSE 2.26 (<1.7) ESV (Teich) 125.50 mL LV Diastology E Decel Time 150.00 (160-240 msec) E/A Ratio 0.48 MED E' 3.60 (< 7 cm/sec) MED A' 8.20 cm/s E'/MED E' Ratio 13.78 (>14) LAT E' 4.60 (<10 cm/sec) LAT A' 8.50 cm/s E/LAT E' Ratio 10.78 (>14) Aortic Valve AO Peak GR. 3.70 mmHg Mitral Valve MV E Max Neo. 50.00 (40-130 cm/s) MV A Velocity 104.00 (40-130 cm/s) E/A Ratio 0.48 MV Decel. Time 150.00 (160-240 ms) MV PHT 44.00 ms Pulmonary Valve PV Peak Velocity 188.00 (50-150 cm/s) Tricuspid Valve TR P. Velocity 287.00 cm/s RAP Estimate 10.00 mmHg RVSP 42.90 mmHg Left Ventricle Left atrium is moderately enlarged, left ventricle is mildly dilated, severely reduced left ventricular systolic function, visually estimated ejection fraction 25% left ventricle is globally hypokinetic, grade 1 diastolic dysfunction seen without tissue Doppler evidence of raise left atrial pressure. Right Ventricle Right atrium and right ventricle are mildly enlarged with normal contractility, there is an AICD lead seen in the right ventricle. Aortic Valve Aortic valve is minimally thickened and fibrosed, there is no aortic stenosis or aortic insufficiency. Mitral Valve Mitral valve leaflets are minimally thickened, there is mild mitral regurgitation. Tricuspid Valve Tricuspid valve grossly normal, there is mild tricuspid regurgitation, calculated right ventricular systolic pressure is 43 mmHg. Pulmonic Valve Pulmonic valve is poorly visualized. Great Vessels Aortic root is normal size. Inferior vena cava is poorly visualized. Pericardium No significant pericardial effusion noted. Conclusion 1. Moderately enlarged left atrium, dilated left ventricle, severely reduced left ventricular systolic function, visually estimated ejection fraction 25% left ventricle is globally hypokinetic, grade 1 diastolic dysfunction seen without tissue Doppler evidence of raise left atrial pressure. 2. Mildly enlarged right ventricle with normal contractility. 3. Mild mitral and tricuspid regurgitation, calculated right ventricular systolic pressure 43 mmHg. 4. No significant pericardial effusion noted. Electronically signed by : Severo Andrew MD 12/07/2021 11:35:16
== END ==
PROVIDERS: PCP Family Medicine; Visit Provider Urology
DX: I25.10 Atherosclerotic heart disease of native coronary artery without angina pectoris (principal); I27.20 Pulmonary hypertension, unspecified; I42.9 Cardiomyopathy, unspecified; I50.23 Acute on chronic systolic (congestive) heart failure; J44.9 Chronic obstructive pulmonary disease, unspecified; R06.00 Dyspnea, unspecified; Z95.810 Presence of automatic (implantable) cardiac defibrillator
CPT/HCPCS: 93306

== ENCOUNTER 2022-03-25 11:04 | Emergency (ER) | payer MEDICARE, SELFPAY ==
[2022-03-25] VITALS (8 sets, daily range): BP systolic 94–155; BP diastolic 44–80; PULSE 61–78; RESP 14–20; TEMP 36.6; O2SAT 94–99; BMI 24.1
--- NOTE | 2022-03-25 11:20 | ECG_ITS ---
APPROVED REPORT Exam: Resting ECG HR:72 bpm ECG Measurements Heart Rate 72 AXES MS 147 P 83 QRSd 154 QRS 237 QT 451 T 73 QTc 475 Conclusion ELECTRONIC ATRIAL PACEMAKER ELECTRONIC VENTRICULAR PACEMAKER ABNORMAL RHYTHM ECG INTERPRETATION BASED ON A DEFAULT AGE OF 40 YEARS UNCONFIRMED REPORT Electronically signed by : Camron Moore MD 03/25/2022 21:32:10
--- NOTE | 2022-03-25 12:02 | XR_ITS ---
PROCEDURE INFORMATION: Exam: XR Chest Exam date and time: 03/25/2022 12:16 PM Age: 86 years old Clinical indication: Shortness of breath; Additional info: SOA TECHNIQUE: Imaging protocol: XR of the chest. Views: 1 view. COMPARISON: CR XR CHEST PORTABLE 08/28/2021 6:25 PM FINDINGS: Tubes, catheters and devices: Cardiac pacemaker unchanged in appearance. Lungs:Hyperlucent changes are demonstrated. Increase in the lung volumes is demonstrated. Findings compatible chronic obstructive pulmonary disease. Findings stable. No evidence of acute cardiopulmonary disease. Pleural spaces: Unremarkable. No pleural effusion. No pneumothorax. Heart/Mediastinum: Unremarkable. No cardiomegaly. Diaphragm: There is flattening of the hemidiaphragms. Bones/joints: Unremarkable. IMPRESSION: 1. Findings compatible chronic obstructive pulmonary disease. Findings stable. 2. No evidence of acute cardiopulmonary disease.
[2022-03-25 12:08] LABS: Basophils # 0.3 K/mm3 (0-0.2); Basophils % 2.2 % (0.1-2.0); Eosinophils # 0.5 K/mm3 (0.0-0.4); Eosinophils % 2.9 % (0.1-12.0); Hematocrit 40.9 % (42.0-52.0); Hemoglobin 13.4 g/dL (14.1-18.0); Lymphocytes # 10.1 K/mm3 (0.7-4.5); Lymphocytes % 66.8 % (10-50); Mean Corpuscular HGB Conc 32.8 g/dL (31.8-35.4); Mean Corpuscular Volume 91.4 fl (80-94); Mean Platelet Volume 8.3 fl (7.4-10.4); Monocytes # 0.7 K/mm3 (0.1-1.0); Monocytes % 4.3 % (1.7-9.3); Neutrophils # 3.6 K/mm3 (1.8-7.8); Neutrophils % 23.7 % (37.0-80.0); Platelet Count 172 K/mm3 (142-424); Red Blood Count 4.47 M/mm3 (4.60-6.20); Red Cell Distribution Width 13.9 % (11.5-17.5); White Blood Count 15.1 K/mm3 (4.8-10.8)
[2022-03-25 12:09] LABS: MANUAL DIFFERENTIAL MANUAL DIFFERENTIAL (MANUAL DIFF)
[2022-03-25 12:10] LABS: Chloride 103 mmol/L (98-107); Potassium 4.1 mmoL/L (3.5-5.1); Sodium 137 mmol/L (136-145)
--- NOTE | 2022-03-25 12:10 | HMH.EDGENADL ---
ED Disposition Clinical Impression: COPD exacerbation Disposition: Home, Self-Care Condition on Discharge: Good Referrals: Angel Chapa MD [Primary Care Provider] - - Critical Care Critical Care Time: No Attestation: On 03/25/22, the high probability of a clinically significant, sudden or life threatening deterioration of the following system(s) required my full and direct attention, intervention and personal management. The time I documented below is in addition to time spent performing reported procedures but includes the following listed in this critical care notation. Medical Decision Making - Medical Records Medical records reviewed: Yes: I reviewed the patient's medical records. - Cornel Inquiry Pt receiving controlled substance: No Vital Signs: 03/25/22 11:05 03/25/22 12:30 03/25/22 13:01 Temperature 97.8 F Temperature Source Oral Pulse Rate 63 65 Pulse Rate [Right Radial] 77 Respiratory Rate 14 18 17 Blood Pressure 120/80 94/51 L Blood Pressure [Right Arm] 109/70 L Blood Pressure Mean 91 65 Blood Pressure Mean [Right Arm] 83 Blood Pressure Source [Right Arm] Automatic Cuff Blood Pressure Position [Right Arm] Sitting 02 Sat by Pulse Oximetry 97 96 99 Oxygen Delivery Method Room Air Room Air 03/25/22 13:31 03/25/22 14:01 03/25/22 14:41 Temperature Temperature Source Pulse Rate 72 61 69 Pulse Rate [Right Radial] Respiratory Rate 16 16 17 Blood Pressure 96/56 L 118/44 L 126/65 Blood Pressure [Right Arm] Blood Pressure Mean 68 77 100 Blood Pressure Mean [Right Arm] Blood Pressure Source [Right Arm] Blood Pressure Position [Right Arm] 02 Sat by Pulse Oximetry 99 96 97 Oxygen Delivery Method 03/25/22 15:01 Temperature Temperature Source Pulse Rate 75 Pulse Rate [Right Radial] Respiratory Rate 16 Blood Pressure 144/77 H Blood Pressure [Right Arm] Blood Pressure Mean 99 Blood Pressure Mean [Right Arm] Blood Pressure Source [Right Arm] Blood Pressure Position [Right Arm] 02 Sat by Pulse Oximetry 97 Oxygen Delivery Method Room Air - Lab Data Lab results reviewed: Yes: I reviewed the patient's lab results. Lab Results 03/25/22 11:25: WBC 15.1 H, RBC 4.47 L, Hgb 13.4 L, Hct 40.9 L, MCV 91.4, MCH 30.0, MCHC 32.8, RDW 13.9, Plt Count 172, MPV 8.3, Neut % (Auto) 23.7 L, Lymph % (Auto) 66.8 H, [place] % (Auto) 4.3, Eos % (Auto) 2.9, Baso % (Auto) 2.2 H, Neut # (Auto) 3.6, Lymph # (Auto) 10.1 H, [place] # (Auto) 0.7, Eos # (Auto) 0.5 H, Baso # (Auto) 0.3 H, Total Counted 100, Neutrophils % (Manual) 44, Lymphocytes % (Manual) 50, Monocytes % (Manual) 4, Eosinophils % (Manual) 2, Platelet Estimate Normal, RBC Morphology Normal 03/25/22 11:25: Sodium 137, Potassium 4.1, Chloride 103, Carbon Dioxide 29, Anion Gap 9.1, BUN 18, Creatinine 1.30 H, Estimated Creat Clear 39, Estimated GFR 53 L, Est GFR ( Amer) 64, Glucose 120 H, Calcium 9.5, Total Bilirubin 0.4, AST 30, ALT 15, Alkaline Phosphatase 79, Troponin I < 0.01, Total Protein 6.9, Albumin 4.2, Globulin 2.7, Albumin/Globulin Ratio 1.6 Result diagrams: 03/25/22 11:25 03/25/22 11:25 Orders (Tests/Meds): ED MEDICATIONS Generic Name Dose Route Start Last Admin Trade Name Freq PRN Reason Stop Dose Admin Sodium Chloride 10 ml 03/25/22 12:02 Sodium Chloride 0.9% 10ml Flush Syringe IV 04/24/22 12:01 NEEDED PRN Maintain IV Site Discontinued Medications Generic Name Dose Route Start Last Admin Trade Name Freq PRN Reason Stop Dose Admin Albuterol Sulfate 5 mg 03/25/22 12:07 03/25/22 12:38 Albuterol 0.083% 2.5 Mg/3 Ml Neb IH 03/25/22 12:08 5 mg ONCE ONE Administration Dexamethasone Sodium Phosphate 10 mg 03/25/22 12:08 03/25/22 12:38 Dexamethasone 4mg/Ml 1ml Vial IV 03/25/22 12:09 10 mg ONCE ONE Administration ORDERS Category Date Time Status Troponin I Q3H Lab 03/25/22 15:09 Received Troponin I Q3H Lab 03/25/22 18:15 Ordered Medi
[2022-03-25 12:12] LABS: Alanine Aminotransferase 15 U/L (12-78); Aspartate Amino Transferase 30 U/L (17-59); Blood Urea Nitrogen 18 mg/dl (9-20); Creatinine Clearance Estimated 39 mL/min (50-200); Estimated Glomerular Filt Rate 53 ml/min (>60); GFR (African American) 64 ML/MIN (>60)
[2022-03-25 12:13] LABS: Albumin Level 4.2 g/dl (3.5-5.0); Albumin/Globulin Ratio 1.6 (1.1-1.8); Alkaline Phosphatase 79 U/L (38-126); Anion Gap 9.1 mEq/L (5-15); Bilirubin,Total 0.4 mg/dl (0.2-1.3); Calcium 9.5 mg/dl (8.4-10.2); Carbon Dioxide 29 mmol/L (22.0-30.0); Globulin 2.7 g/dL (1.3-3.2); Glucose 120 mg/dl (74-100); Total Protein,Serum 6.9 g/dl (6.3-8.2)
[2022-03-25 12:39] LABS: Eosinophils % 2 % (0-3); Lymphocytes % 50 % (10-50); Monocytes % 4 % (2-9); Neutrophils % 44 % (42-76); Platelet Estimate Normal; RBC Morphology Normal; Total Cells Counted 100
[2022-03-25 12:51] LABS: Troponin I < 0.01 ng/ml (0.00-0.034)
[2022-03-25 15:38] LABS: Troponin I < 0.01 ng/ml (0.00-0.034)
== END 2022-03-25 17:25 | disposition home or self-care (01) ==
PROVIDERS: Emergency Provider Emergency Medicine; PCP Family Medicine
DX: J44.1 Chronic obstructive pulmonary disease with (acute) exacerbation (principal); R00.8 Other abnormalities of heart beat; I27.20 Pulmonary hypertension, unspecified; R79.89 Other specified abnormal findings of blood chemistry; I11.0 Hypertensive heart disease with heart failure; I50.20 Unspecified systolic (congestive) heart failure; I49.1 Atrial premature depolarization; I49.3 Ventricular premature depolarization; F17.210 Nicotine dependence, cigarettes, uncomplicated; Z79.01 Long term (current) use of anticoagulants; Z79.899 Other long term (current) drug therapy; Z95.0 Presence of cardiac pacemaker
CPT/HCPCS: 71045; 80053; 84484; 85007; 85025; 93005; 96374; 99285

== ENCOUNTER → 2023-01-07 10:09 | Outpatient (CLI) | payer MEDICARE, SELFPAY ==
[2023-01-07 11:05] LABS: Alanine Aminotransferase 13 U/L (12-78); Albumin Level 4.5 g/dl (3.5-5.0); Alkaline Phosphatase 75 U/L (38-126); Anion Gap 11.3 mEq/L (5-15); Aspartate Amino Transferase 23 U/L (17-59); Bilirubin,Indirect 0.7 mg/dL (0.0-0.9); Bilirubin,Total 0.7 mg/dl (0.2-1.3); Bilirubin,Unconjugated 0.8 mg/dL (0.0-1.1); Blood Urea Nitrogen 20 mg/dl (9-20); Calcium 9.2 mg/dl (8.4-10.2); Carbon Dioxide 30 mmol/L (22.0-30.0); Chloride 101 mmol/L (98-107); Cholesterol 226 mg/dl (140-200); Estimated Glomerular Filt Rate 52 ml/min (>60); GFR (African American) 63 ML/MIN (>60); Glucose 123 mg/dl (74-100); HDL Cholesterol 45 mg/dl (40-60); Magnesium 2.2 mg/dl (1.6-2.3); Potassium 4.3 mmoL/L (3.5-5.1); Sodium 138 mmol/L (136-145); Total Protein,Serum 7.1 g/dl (6.3-8.2); Triglycerides 193 mg/dl (30-150); VLDL Cholesterol 39 mg/dL (0-40)
[2023-01-07 11:16] LABS: Direct LDL Cholesterol 143.89 mg/dL (100-129)
[2023-01-07 11:22] LABS: Free T4 (Free Thyroxine) 1.24 ng/dl (0.78-2.19)
[2023-01-07 11:36] LABS: Thyroid Stimulating Hormone 4.88 uIU/mL (0.465-4.68)
[2023-01-07 13:56] LABS: Basophils # 0.2 K/mm3 (0-0.2); Basophils % 1.1 % (0.1-2.0); Eosinophils # 0.5 K/mm3 (0.0-0.4); Eosinophils % 2.9 % (0.1-12.0); Hematocrit 47.7 % (42.0-52.0); Hemoglobin 14.9 g/dL (14.1-18.0); Mean Corpuscular HGB Conc 31.3 g/dL (31.8-35.4); Mean Corpuscular Hemoglobin 28.8 pg (27.0-31.2); Mean Platelet Volume 8.8 fl (7.4-10.4); Monocytes # 0.7 K/mm3 (0.1-1.0); Monocytes % 4.1 % (1.7-9.3); Neutrophils # 5.8 K/mm3 (1.8-7.8); Platelet Count 221 K/mm3 (142-424); Red Blood Count 5.18 M/mm3 (4.60-6.20); Red Cell Distribution Width 13.8 % (11.5-17.5); White Blood Count 16.1 K/mm3 (4.8-10.8)
[2023-01-07 13:59] LABS: MANUAL DIFFERENTIAL MANUAL DIFFERENTIAL (MANUAL DIFF)
[2023-01-07 15:21] LABS: Eosinophils % 4 % (0-3); Lymphocytes % 55 % (10-50); Monocytes % 3 % (2-9); Neutrophils % 38 % (42-76); Platelet Estimate Normal; RBC Morphology Normal; Total Cells Counted 100
== END ==
PROVIDERS: PCP Nurse Practitioner Family; Visit Provider Internal Medicine
DX: I25.10 Atherosclerotic heart disease of native coronary artery without angina pectoris (principal); I27.20 Pulmonary hypertension, unspecified; I42.9 Cardiomyopathy, unspecified; I50.23 Acute on chronic systolic (congestive) heart failure; I50.9 Heart failure, unspecified; Z95.810 Presence of automatic (implantable) cardiac defibrillator
CPT/HCPCS: 36415; 80048; 80061; 80076; 83735; 84439; 84443; 85007; 85025

== ENCOUNTER 2023-03-27 12:32 | Emergency (ER) | payer MEDICARE, SELFPAY ==
[2023-03-27 12:35] VITALS: BP 131/102; PULSE 78; RESP 20; TEMP 36.4; O2SAT 97
--- NOTE | 2023-03-27 12:49 | XR_ITS ---
FINAL REPORT CLINICAL HISTORY: SOB COMPARISON: 03/25/2022 FINDINGS: TWO-VIEW CHEST The heart size is normal. The mediastinum is normal. Biventricular pacer is identified. The lungs are clear. There is no pneumothorax. IMPRESSION: No acute cardiopulmonary process. No change from previous. Reviewed, Interpreted and Dictated by Olman Madden MD Transcribed by Chantel Easton Authenticated and [facility]
--- NOTE | 2023-03-27 12:49 | EXP.UTC ---
Discharge Plan Disposition Patient Disposition: Home, Self-Care Condition: Good Prescriptions Prescriptions: New azithromycin [Zithromax Z-Massimo] 250 mg tablet See Rx Instructions .ROUTE .COMPLEX 5 Days Qty: 6 0RF Rx Instructions: For 250 mg dose pack: take 500 mg today (day 1), then 250 mg for 4 days (days 2-5) No Action albuterol sulfate 90 mcg/actuation HFA aerosol inhaler 1 inh INHALATION QID PRN (Reason: shortness of breath or wheezing) Qty: 8.5 3RF aspirin 81 mg tablet 81 mg PO DAILY valsartan 40 mg tablet 40 mg PO BID Qty: 60 5RF Eliquis 5 mg tablet 5 mg PO BID Qty: 60 3RF carvedilol 6.25 mg tablet 6.25 mg PO BID Qty: 60 5RF rosuvastatin [Crestor] 40 mg tablet 40 mg PO DAILY Qty: 90 1RF furosemide 20 mg tablet 40 mg PO BID Qty: 120 3RF ipratropium-albuterol 3 ML solution for nebulization 3 ml inhalation Q4HP PRN (Reason: soa) budesonide 1 MG/2 ML suspension for nebulization 1 mg inhalation DAILY Referrals Follow up/Referrals: Camron Hughes MD [Primary Care Provider] - See instructions Activity Restrictions/Add. Instructions Additional Instructions/Restrictions: Start antibiotic today. Be sure to complete entire prescription even if feeling better Monitor temp. Tylenol every 4 hours as needed and / or ibuprofen every 6 hours as needed ( As long as your primary care physician has told you that it ok to take both. For fever/aches/pains ER if no less than 101 despite Tylenol or Motrin Humidifier/vaporizer or hot steamy shower Use Nebulizer treatments as prescribed as needed like we discussed. Straight to ER if any worsening of shortness of breath or any life threatening symptoms Follow up IMMEDIATELY for new or worsening of symptoms OR no noticeable improvement over the next 48-72 hours. 911 immediately for any life threatening symptoms such as chest pain or difficulty breathing Clinical Impressions Clinical Impression: COPD exacerbation Instructions Patient Instructions: DI for Chronic Obstructive Pulmonary Disease, Azithromycin, COPD: When to Call for Help Discharge ED Provider: Eloise Ocampo [facility] General Stated complaint: SOA Mode of Arrival: Ambulatory Source of Information: Patient Limitations: No Limitations Time Seen by Provider: 03/27/23 12:49 Description of Symptoms (Recalled from Triage Doc. by RN): PATIENT C/O TROUBLE BREATHING FOR THE PAST WEEK HEENT Symptoms (Recalled from RN notes): No Resp Symptoms (Recalled from RN notes): Yes Skin Symptoms (Recalled from RN notes): No MS Symptoms (Recalled from RN notes): No Functional Status (Recalled from RN notes): WNL History of Present Illness Provider Complaint: Patient states that he has been told he has COPD states that he has been having cough for about a week and felt a little short of air States that he was worried he may be getting pneumonia again and wanted to get a chest xray and see States he is feeling better today after using vicks last night on his chest States that he has hx of CHF also but his swelling and edema has been better since he has been taking his lasix like he is suppose too Denies fever denies leg swelling States he does feel like he is having some drainage in the back of his throat and coughing up mucous every now and then States that he smokes about 3-4 cig a day Related Data Home Medications Medication Instructions Recorded Confirmed budesonide 1 mg/2 mL suspension 1 mg inhalation DAILY COPD 03/17/21 12/24/22 for nebulization ipratropium 0.5 mg-albuterol 3 mg 3 ml inhalation Q4HP PRN soa 03/17/21 12/24/22 (2.5 mg base)/3 mL nebulization soln aspirin 81 mg tablet 81 mg PO DAILY 12/24/22 12/24/22 Previous Rx's Medication Instructions Recorded albuterol sulfate 90 mcg/actuation 1 inh inhalation QID PRN shortness 04/03/21 aerosol inhaler of breath or wheezing #8.5 grams carvedilol 6.25 mg table
[2023-03-27 14:11] VITALS: BP 136/96; PULSE 78; RESP 20; TEMP 36.4; O2SAT 97
== END 2023-03-27 14:20 | disposition home or self-care (01) ==
PROVIDERS: Emergency Provider Nurse Practitioner; PCP Family Medicine
DX: J44.1 Chronic obstructive pulmonary disease with (acute) exacerbation (principal); R06.02 Shortness of breath; F17.210 Nicotine dependence, cigarettes, uncomplicated; I27.20 Pulmonary hypertension, unspecified
CPT/HCPCS: 71046; 96372; 99204; 99212; G0463

== ENCOUNTER → 2023-07-08 15:03 | Outpatient (CLI) | payer MEDICARE, SELFPAY ==
--- NOTE | 2023-07-08 | CA_ITS ---
APPROVED REPORT EXAM: Comprehensive 2D, Doppler, and color-flow Echocardiogram Co Founder And Cto: Joseline Tavarez RDCS Ht: 5 ft 10 in Wt: 147lbs BSA: 1.83 BP: 123/62 mmHg Indications: Pulmonary Hypertension, Arrhythmia, Congestive Heart Failure, Shortness of Breath, CAD, Cardiomyopathy,AICD 2D Dimensions LVOT 1.71 cm (M/F) 1.5-2.5 M-Mode Dimensions RVDd 2.04 cm (0.9-2.6) LA Diam 4.13 cm (1.9-4.0) LVDd 7.21 cm (3.5-5.7) Ao Diam 2.91 cm (2.0-3.7) LVDs 6.46 cm (3.5-5.7) IVSd 0.50 cm (0.6-1.1) PWd 0.61 cm (0.6-1.1) EF (Teich) 22.00% FS 10.40% EDV (Teich) 273.00 mL ESV (Teich) 213.00 mL LV Diastology E Decel Time 150.00 (160-240 msec) Mitral Valve MV E Max Neo. 438.00 (40-130 cm/s) MV Decel. Time 150.00 (160-240 ms) MV PHT 44.00 ms Tricuspid Valve TR P. Velocity 315.00 cm/s RAP Estimate 10.00 mmHg RVSP 49.60 mmHg Left Ventricle Left ventricle is moderately dilated. The left ventricular systolic function is severely reduced. There is normal left ventricular wall thickness. Severe global hypokinesis is present. Diastolic function is not evaluated. LVEF is 10-15% Right Ventricle The right ventricle is normal size. The right ventricular systolic function is normal. A device lead is noted in the right ventricle. Atria Left atrium is moderately dilated. The right atrium size is mildly dilated. There is no Doppler evidence of interatrial shunt. Aortic Valve The aortic valve leaflets are mildly thickened. There is no aortic valvular stenosis. No aortic regurgitation is present. Mitral Valve Mild mitral annular calcification (MAC). The mitral valve leaflets are mildly thickened. Moderate to severe mitral regurgitation is present. Mechanism of MR is likely due to tethering of the posterior MV leaflet and LV dilation (Denisa class IIIB). Tricuspid Valve The tricuspid valve leaflets are thin and pliable. Mild tricuspid regurgitation. RVSP is 35-40 mmHg. Pulmonic Valve The pulmonary valve is normal in structure. Trace pulmonic regurgitation. Great Vessels The aortic root is normal in size. The ascending aorta is normal in size. IVC is normal in size and collapses >50% with inspiration. Pericardium Trivial pericardial effusion is present. Other Information Study Quality: Fair Conclusion Moderately dilated LV with severely reduced LV systolic function (LVEF 10-15%). Biatrial dilation. Moderate to severe MR. Mechanism of MR is likely due to tethering of the posterior MV leaflet and LV dilation (Denisa class IIIB). Mild TR Elevated RVSP 35-40 mmHg. Compared to prior study on 12/06/2021, the LVEF now appears further reduced. The MR is also now more severe. Surgical vs. interventional consultation to evaluate MR is recommended if clinically indicated. Further assessment of the etiology and mechanism of MR by ULISES is also recommended. Note that procedures may be considered high-risk due to severely reduced LVEF. Electronically signed by : Lynne Steen, 07/14/2023 09:34:35
== END ==
PROVIDERS: PCP Internal Medicine; Visit Provider Physician Assistant
DX: R06.02 Shortness of breath (principal)
CPT/HCPCS: 93306

== ENCOUNTER 2023-07-22 07:16 | Day surgery (SDC) | payer MEDICARE, SELFPAY ==
[2023-07-22 07:22] VITALS: BMI 19.2
[2023-07-22 07:40] VITALS: PULSE 103
[2023-07-22 07:41] VITALS: BP 100/67; PULSE 113; RESP 18; TEMP 36.9; O2SAT 97
[2023-07-22 07:52] LABS: Alanine Aminotransferase 35 U/L (12-78); Albumin Level 4.6 g/dl (3.5-5.0); Albumin/Globulin Ratio 1.5 (1.1-1.8); Alkaline Phosphatase 74 U/L (38-126); Anion Gap 15.8 mEq/L (5-15); Aspartate Amino Transferase 41 U/L (17-59); Bilirubin,Total 1.2 mg/dl (0.2-1.3); Blood Urea Nitrogen 27 mg/dl (9-20); Calcium 9.3 mg/dl (8.4-10.2); Carbon Dioxide 32 mmol/L (22.0-30.0); Chloride 95 mmol/L (98-107); Creatinine Clearance Estimated 21 mL/min (50-200); Estimated Glomerular Filt Rate 29 ml/min (>60); GFR (African American) 35 ML/MIN (>60); Globulin 3.1 g/dL (1.3-3.2); Glucose 125 mg/dl (74-100); Potassium 3.8 mmoL/L (3.5-5.1); Sodium 139 mmol/L (136-145); Total Protein,Serum 7.7 g/dl (6.3-8.2)
--- NOTE | 2023-07-22 08:15 | EXP.ANES.CKL ---
[facility] Disclaimer: The information contained in this section may have been updated after the patient was seen, as this information can be updated by other users. Medical History Atrial fibrillation Atypical angina CAD (coronary artery disease) Cardiomyopathy Dyspnea Elevated troponin NSTEMI (non-ST elevated myocardial infarction) PAC (premature atrial contraction) Pulmonary HTN PVC (premature ventricular contraction) Systolic heart failure Trigeminy Social History Smoking Status: Current every day smoker tobacco type: cigarettes packs per day: 1 alcohol intake: never substance use type: denies use current occupational status: retired Travel in the last 8 weeks: Inside the [place] household members: spouse housing: house current occupational exposures/hazards: No caffeine: No [facility] Anesthesia Checklist Patient Identification Patient Identification: Arm Band Structural Data Admitted From: Home Planned Operative Procedure/s: cardioversion Consent for Planned Operative Procedure(s) Verified: Yes Verified Documents: Surgical Consent and History and Physical NPO Status Verified Time NPO: 00:00 Additional verifications Anesthesia Reactions: No Hx Blood Transfusions: No Blood Transfusion Reaction: No Airway Assessment Mallampati Score:: Class II C-Spine Mobility Assessed: Yes TMJ Mobility Assessed: Yes Dentition: Good Dentition (upper dentures) Neurological Assessment Level of Consciousness: Awake and Alert Anesthesia Plan Anesthesia Risk discussed: Yes Anesthesia Plan: Verified ASA Class: IV Anesthesia Type: MAC
[2023-07-22 08:24] VITALS: BP 102/60; PULSE 105; PULSE 98; RESP 18; TEMP 36.9; O2SAT 99
--- NOTE | 2023-07-22 08:24 | XR_ITS ---
FINAL REPORT CLINICAL HISTORY: eval defib leads, leads may not be in correct location had to shock patient. defib did not shock when needed FINDINGS: A portable view of the chest was obtained. Left AICD leads are grossly unremarkable. Cardiac and mediastinal silhouettes are within normal limits. There is right perihilar opacity. There is no pleural effusion or pneumothorax. IMPRESSION: Left AICD leads grossly unremarkable. Right perihilar opacity; atelectasis versus pneumonia. Reviewed, Interpreted and Dictated by Smiley Finn MD Transcribed by Kristian Vaughan Authenticated and [facility]
--- NOTE | 2023-07-22 08:25 | ECG_ITS ---
APPROVED REPORT Exam: Resting ECG HR:70 bpm ECG Measurements Heart Rate 70 AXES QRSd 174 QRS 128 QT 516 T -77 QTc 536 Conclusion UNCERTAIN IRREGULAR RHYTHM ELECTRONIC VENTRICULAR PACEMAKER -- CONTOUR ANALYSIS BASED ON INTRINSIC RHYTHM RIGHT AXIS DEVIATION [QRS AXIS > 100] INTRAVENTRICULAR CONDUCTION DELAY [130+ ms QRS DURATION] ABNORMAL ECG UNCONFIRMED REPORT Electronically signed by : Camron Moore MD 07/22/2023 20:00:53
[2023-07-22 08:42] VITALS: BP 96/59; PULSE 73; RESP 18; O2SAT 100
[2023-07-22 09:02] VITALS: BP 96/44; PULSE 80; RESP 17; O2SAT 100
== END 2023-07-22 09:03 | disposition home or self-care (01) ==
PROVIDERS: Visit Provider Internal Medicine
DX: I48.0 Paroxysmal atrial fibrillation (principal)
CPT/HCPCS: 71045; 80053; 93005

== ENCOUNTER 2023-07-22 19:09 | Observation (INO) | payer MEDICARE, SELFPAY ==
[2023-07-22] VITALS (9 sets, daily range): BP systolic 121–136; BP diastolic 69–81; PULSE 86–111; RESP 18–25; TEMP 36.5–36.6; O2SAT 90–100; BMI 18.9
--- NOTE | 2023-07-22 19:42 | ECG_ITS ---
APPROVED REPORT Exam: Resting ECG HR:107 bpm ECG Measurements Heart Rate 107 AXES NH 176 P 85 QRSd 153 QRS 198 QT 387 T 19 QTc 450 Conclusion ELECTRONIC VENTRICULAR PACEMAKER ABNORMAL RHYTHM ECG UNCONFIRMED REPORT Electronically signed by : Camron Moore MD 07/24/2023 17:21:44
--- NOTE | 2023-07-22 20:33 | XR_ITS ---
PROCEDURE INFORMATION: Exam: XR Chest Exam date and time: 07/22/2023 9:02 PM Age: 87 years old Clinical indication: Dyspnea; Patient HX: Smokes 4 cigarettes per day. ; Additional info: Acute onset dyspnea TECHNIQUE: Imaging protocol: Radiologic exam of the chest. Views: 1 view. COMPARISON: CR XR CHEST PORTABLE 07/22/2023 8:32 AM FINDINGS: Tubes, catheters and devices: Left chest wall biventricular cardiac pacing device/defibrillator. Lungs: Mildly increased bilateral perihilar opacities. No consolidation. Pleural spaces: Unremarkable. No pleural effusion. No pneumothorax. Heart/Mediastinum: Unremarkable. No cardiomegaly. Bones/joints: No acute findings. IMPRESSION: Mildly increased bilateral perihilar opacities which may be seen with pulmonary edema or infection in the acute setting.
--- NOTE | 2023-07-22 20:37 | PC.NURSE ---
Pt states he is feeling better wearing the Oxygen, pt has a NC running at 2lpm. Pt states he is ready to go home. Advised him that the Dr will be in shortly. CR
[2023-07-22 20:39] LABS: Basophils # 0.1 K/mm3 (0-0.2); Basophils % 0.7 % (0.1-2.0); Eosinophils # 0.3 K/mm3 (0.0-0.4); Eosinophils % 1.9 % (0.1-12.0); Hematocrit 39.5 % (42.0-52.0); Hemoglobin 12.5 g/dL (14.1-18.0); Lymphocytes # 6.1 K/mm3 (0.7-4.5); Mean Corpuscular HGB Conc 31.6 g/dL (31.8-35.4); Mean Corpuscular Hemoglobin 27.8 pg (27.0-31.2); Mean Corpuscular Volume 88.1 fl (80-94); Mean Platelet Volume 9.3 fl (7.4-10.4); Monocytes # 0.7 K/mm3 (0.1-1.0); Monocytes % 4.8 % (1.7-9.3); Neutrophils # 7.3 K/mm3 (1.8-7.8); Neutrophils % 50.7 % (37.0-80.0); Platelet Count 140 K/mm3 (142-424); Red Blood Count 4.49 M/mm3 (4.60-6.20); Red Cell Distribution Width 14.9 % (11.5-17.5); White Blood Count 14.4 K/mm3 (4.8-10.8)
[2023-07-22 20:40] LABS: Chloride 96 mmol/L (98-107); Potassium 3.6 mmoL/L (3.5-5.1); Sodium 139 mmol/L (136-145)
[2023-07-22 20:43] LABS: Alanine Aminotransferase 27 U/L (12-78); Albumin Level 4.2 g/dl (3.5-5.0); Albumin/Globulin Ratio 1.3 (1.1-1.8); Alkaline Phosphatase 74 U/L (38-126); Anion Gap 12.6 mEq/L (5-15); Aspartate Amino Transferase 37 U/L (17-59); Bilirubin,Total 0.8 mg/dl (0.2-1.3); Blood Urea Nitrogen 35 mg/dl (9-20); Carbon Dioxide 34 mmol/L (22.0-30.0); Creatinine Clearance Estimated 20 mL/min (50-200); Estimated Glomerular Filt Rate 27 ml/min (>60); GFR (African American) 33 ML/MIN (>60); Globulin 3.2 g/dL (1.3-3.2); Glucose 163 mg/dl (74-100); Total Protein,Serum 7.4 g/dl (6.3-8.2)
[2023-07-22 20:53] LABS: NT Pro Brain Natriuretic Pep. 14300 pg/mL (0-450)
[2023-07-22 20:54] LABS: D-Dimer 0.73 ug/mL (0.0-0.5)
[2023-07-22 20:55] LABS: Troponin I 0.15 ng/ml (0.00-0.034)
--- NOTE | 2023-07-22 21:43 | HMH.EDGENADL ---
Discharge Plan Disposition Patient Disposition: Admitted Clinical Impressions Clinical Impression: CHF (congestive heart failure), Non-ST elevation OK (NSTEMI) Discharge ED Provider: Dann Lozano General Adult HPI General Chief complaint: Shortness of Breath/Dyspnea Stated complaint: SOA Time Seen by Provider: 07/22/23 19:19 Mode of Arrival: Family Vehicle Source of Information: Patient Limitations: No Limitations Description of Symptoms (Recalled from ER Triage Doc. by RN): 87 yo male presents with acute onset of dyspnea x 2 hours. Patient states he was seen earlier by cardiology and advised his defib wasn't working accurately and that he would be brought back in at a later time to have the wires re-ran. Patient denies angina. States i can't get a full breath and it's making me nauseated . Alert,oriented x 4. Reports sick contact (adult son) who has cold-like symptoms . He reports drainage,slight cough . Afebrile. PMH: COPD (CONTINUES TO SMOKE 4 CIGS/DAY), CHF,HTN. UTD on flu/covid immunizations. History of Present Illness HPI narrative: Patient is a 87-year-old male with past medical history of atrial fibrillation on anticoagulation, COPD not on home oxygen, CHF status post pacemaker placement who presents emergency department for evaluation of shortness of breath. Per recent cardiology note patient eating ejection fraction down to 10% with atrial fibrillation, episodes of V. tach lasting up to 30 seconds. Patient presented to clinic today where he reportedly had his AICD interrogated and it was suspected that he had a faulty wire. Patient denies chest pain however since he was discharged home he has had worsening shortness of breath. Related Data Home Medications Medication Instructions Recorded Confirmed ipratropium 0.5 mg-albuterol 3 mg 3 ml inhalation Q4HP PRN soa 03/17/21 07/22/23 (2.5 mg base)/3 mL nebulization soln carvedilol 6.25 mg tablet 6.25 mg PO BID . 07/22/23 07/22/23 furosemide 20 mg tablet 80 mg PO BID fluid overload 07/22/23 07/22/23 rosuvastatin 40 mg tablet (Crestor) 40 mg PO DAILY Cholesterol 07/22/23 07/22/23 valsartan 40 mg tablet 40 mg PO BID Hypertension 07/22/23 07/22/23 Previous Rx's Medication Instructions Recorded albuterol sulfate 90 mcg/actuation 1 inh inhalation QID PRN shortness 04/03/21 aerosol inhaler of breath or wheezing #8.5 grams apixaban 5 mg tablet (Eliquis) 5 mg PO BID Blood thinner #60 tabs 12/24/22 Allergies Allergy/AdvReac Type Severity Reaction Status Date / Time No Known Allergies Allergy Verified 07/15/23 10:25 [facility] Disclaimer: The information contained in this section may have been updated after the patient was seen, as this information can be updated by other users. Medical History (Updated 07/22/23 @ 23:37 by Mariah Gill RN) Arrhythmia Atrial fibrillation Atypical angina CAD (coronary artery disease) Cardiomyopathy Dyspnea Elevated troponin History of cardioversion History of pacemaker Hyperlipidemia NSTEMI (non-ST elevated myocardial infarction) PAC (premature atrial contraction) Presence of combination internal cardiac defibrillator (ICD) and pacemaker Pulmonary HTN PVC (premature ventricular contraction) Systolic heart failure Trigeminy Surgical History (Updated 07/22/23 @ 22:49 by Mariah Gill RN) Hx of appendectomy Social History (Updated 07/22/23 @ 08:16 by Claus England CRNA) Smoking Status: Unknown if ever smoked alcohol intake: never substance use type: denies use current occupational status: retired Travel in the last 8 weeks: [place] the [place] household members: spouse housing: house current occupational exposures/hazards: No caffeine: No ROS Obtained: Yes Systems reviewed as appropriate & no additional complaints except as documented Physical Exam General General appearance: alert and in no apparent distress Head Head exam: atraumatic and normocephalic Eye Eye exa
--- NOTE | 2023-07-22 21:44 | PC.NURSE ---
Paged Dr Keller.
--- NOTE | 2023-07-22 21:49 | ECG_ITS ---
APPROVED REPORT Exam: Resting ECG HR:100 bpm ECG Measurements Heart Rate 100 AXES VA 189 P 80 QRSd 164 QRS 120 QT 408 T 69 QTc 465 Conclusion ELECTRONIC VENTRICULAR PACEMAKER ABNORMAL RHYTHM ECG UNCONFIRMED REPORT Electronically signed by : Camron Moore MD 07/24/2023 17:21:30
--- NOTE | 2023-07-22 21:50 | PC.NURSE ---
dta; NSTEMI,CHF; hospitalist. House notified
--- NOTE | 2023-07-22 22:10 | PC.NURSE ---
Report called to schuyler
--- NOTE | 2023-07-22 22:18 | PC.NURSE ---
pt to floor via wheel chair.
--- NOTE | 2023-07-22 22:28 | EXP.HP ---
History of Present Illness *Admission Date: 07/22/23 *Reason for visit:: SOB *History of present illness: This is a 87-year-old male with PMHx of atrial fibrillation on anticoagulation, COPD not on home oxygen, CHF status post pacemaker placement, CAD, who presented to the emergency department for evaluation of increasaed and worsened shortness of breath. Patient was seen earleir today for AICD interrogation. Showing a faulty wire. Per recent cardiology note patient eating ejection fraction down to 10% with atrial fibrillation, episodes of V. tach lasting up to 30 seconds. Patient denies chest pain however since he was discharged home he has had worsening shortness of breath. Admitted for treatment and management. [facility] Disclaimer: The information contained in this section may have been updated after the patient was seen, as this information can be updated by other users. Medical History (Updated 07/23/23 @ 04:30 by Colt Angel APRN) Arrhythmia Atrial fibrillation Atypical angina CAD (coronary artery disease) Cardiomyopathy Dyspnea Elevated troponin History of cardioversion History of pacemaker Hyperlipidemia NSTEMI (non-ST elevated myocardial infarction) PAC (premature atrial contraction) Presence of combination internal cardiac defibrillator (ICD) and pacemaker Pulmonary HTN PVC (premature ventricular contraction) Systolic heart failure Trigeminy Surgical History (Updated 07/22/23 @ 22:49 by Mariah Gill RN) Hx of appendectomy Social History (Updated 07/22/23 @ 08:16 by Claus England CRNA) Smoking Status: Unknown if ever smoked alcohol intake: never substance use type: denies use current occupational status: retired Travel in the last 8 weeks: [place] the [place] household members: spouse housing: house current occupational exposures/hazards: No caffeine: No Review of Systems Review of Systems Review of systems:: pertinent systems reviewed and negative unless documented below Meds Home Medications and Allergies Home Medications Medication Instructions Recorded Confirmed Type ipratropium 0.5 mg-albuterol 3 mg 3 ml inhalation Q4HP PRN soa 03/17/21 07/22/23 History (2.5 mg base)/3 mL nebulization soln albuterol sulfate 90 mcg/actuation 1 inh inhalation QID PRN shortness 04/03/21 07/22/23 Rx aerosol inhaler of breath or wheezing #8.5 grams apixaban 5 mg tablet (Eliquis) 5 mg PO BID Blood thinner #60 tabs 12/24/22 07/22/23 Rx carvedilol 6.25 mg tablet 6.25 mg PO BID . 07/22/23 07/22/23 History furosemide 20 mg tablet 80 mg PO BID fluid overload 07/22/23 07/22/23 History rosuvastatin 40 mg tablet (Crestor) 40 mg PO DAILY Cholesterol 07/22/23 07/22/23 History valsartan 40 mg tablet 40 mg PO BID Hypertension 07/22/23 07/22/23 History New Prescriptions to Start Prescriptions: Allergies Allergy/AdvReac Type Severity Reaction Status Date / Time No Known Allergies Allergy Verified 07/15/23 10:25 Exam Data for Last 24 hours Vital signs and Labs for Last 24 Hours: Temp Pulse Resp BP Pulse Ox O2 Del Method 98 F 92 H 21 135/79 97 Nasal Cannula 07/22/23 22:12 07/22/23 22:12 07/22/23 22:12 07/22/23 22:12 07/22/23 22:00 07/22/23 21:30 Laboratory Results - last 24 hr 07/22/23 19:25: WBC 14.4 H, RBC 4.49 L, Hgb 12.5 L, Hct 39.5 L, MCV 88.1, MCH 27.8, MCHC 31.6 L, RDW 14.9, Plt Count 140 L, MPV 9.3, Neut % (Auto) 50.7, Lymph % (Auto) 42.0, [place] % (Auto) 4.8, Eos % (Auto) 1.9, Baso % (Auto) 0.7, Neut # (Auto) 7.3, Lymph # (Auto) 6.1 H, [place] # (Auto) 0.7, Eos # (Auto) 0.3, Baso # (Auto) 0.1, D-Dimer 0.73 H, Sodium 139, Potassium 3.6, Chloride 96 L, Carbon Dioxide 34 H, Anion Gap 12.6, BUN 35 H D, Creatinine 2.30 H, Estimated Creat Clear 20, Estimated GFR 27 L, Est GFR ( Amer) 33 L, Glucose 163 H D, Calcium 9.0, Total Bilirubin 0.8, AST 37, ALT 27, Alkaline Phosphatase 74, Troponin I 0.15 H, NT-Pro-B Natriuret Pep 67955 H, Total Protein 7.4, A
[2023-07-23] VITALS (14 sets, daily range): BP systolic 93–122; BP diastolic 53–83; PULSE 52–100; RESP 16–19; TEMP 36.6–37.2; O2SAT 94–100; BMI 18.8
[2023-07-23 00:12] LABS: Troponin I 0.11 ng/ml (0.00-0.034)
[2023-07-23 01:37] LABS: Coronavirus 19, PCR Not Detected (NotDetected); Influenza A, PCR Not Detected (NotDetected); Influenza B, PCR Not Detected (NotDetected)
[2023-07-23 03:30] LABS: Troponin I 0.11 ng/ml (0.00-0.034)
[2023-07-23 06:31] LABS: Basophils # 0.1 K/mm3 (0-0.2); Basophils % 0.5 % (0.1-2.0); Eosinophils % 0.3 % (0.1-12.0); Hematocrit 37.7 % (42.0-52.0); Hemoglobin 11.8 g/dL (14.1-18.0); Lymphocytes % 35.3 % (10-50); Mean Corpuscular HGB Conc 31.2 g/dL (31.8-35.4); Mean Corpuscular Hemoglobin 28.2 pg (27.0-31.2); Mean Corpuscular Volume 90.3 fl (80-94); Mean Platelet Volume 8.4 fl (7.4-10.4); Monocytes # 0.6 K/mm3 (0.1-1.0); Monocytes % 4.4 % (1.7-9.3); Neutrophils # 8.5 K/mm3 (1.8-7.8); Neutrophils % 59.6 % (37.0-80.0); Platelet Count 126 K/mm3 (142-424); Red Blood Count 4.17 M/mm3 (4.60-6.20); Red Cell Distribution Width 14.7 % (11.5-17.5); White Blood Count 14.3 K/mm3 (4.8-10.8)
[2023-07-23 06:42] LABS: Alanine Aminotransferase 32 U/L (12-78); Albumin Level 4.6 g/dl (3.5-5.0); Albumin/Globulin Ratio 1.4 (1.1-1.8); Alkaline Phosphatase 73 U/L (38-126); Anion Gap 20.7 mEq/L (5-15); Aspartate Amino Transferase 42 U/L (17-59); Bilirubin,Total 1.4 mg/dl (0.2-1.3); Blood Urea Nitrogen 35 mg/dl (9-20); Calcium 9.2 mg/dl (8.4-10.2); Carbon Dioxide 30 mmol/L (22.0-30.0); Chloride 96 mmol/L (98-107); Creatinine Clearance Estimated 21 mL/min (50-200); Estimated Glomerular Filt Rate 29 ml/min (>60); GFR (African American) 35 ML/MIN (>60); Globulin 3.2 g/dL (1.3-3.2); Glucose 140 mg/dl (74-100); Potassium 3.7 mmoL/L (3.5-5.1); Sodium 143 mmol/L (136-145); Total Protein,Serum 7.8 g/dl (6.3-8.2)
--- NOTE | 2023-07-23 07:42 | PC.NURSE ---
pt admitted for chf, nstemi. pt denies pain. atrial fib on monitor hr 104. pt reports soa. pt given 80 mg of iv lasix, voided around 1200 ml. pt currently on 2l/nc.
--- NOTE | 2023-07-23 08:30 | EXP.PN ---
Subjective *Date: 07/23/23 *Time: 10:26 Interval history: The patient is seen and examined today. I am accompanied by nursing staff. Nursing staff report that he remains afebrile with stable vital signs and saturating appropriately on 2 L via nasal cannula. He reports that he normally lives at home with his and is ambulatory with identified dyspnea on exertion. He denies retrosternal chest pain. He underwent DCCV yesterday (07/22/2023) with identified concerns of atrial lead fracture. His previously identified atrial fibrillation has resolved and he is currently on telemetry identifying paced rhythm. Cardiology is due to see the patient. His labs identify a creatinine of 2.2 (baseline 1.3) with magnesium 2.0. His CBC identifies a WBC of 14 with hemoglobin 11.8 and [place] 126[place] [id number]. His echocardiogram identified an ejection fraction of 10% with MR and RVSP of 35 mmHg. Exam Data for Last 24 hours Vital signs and Labs for Last 24 Hours: Temp Pulse Resp BP Pulse Ox O2 Del Method O2 Flow Rate 98.4 F 93 H 16 102/68 L 100 Nasal Cannula 3 07/23/23 07:50 07/23/23 07:50 07/23/23 07:50 07/23/23 07:50 07/23/23 07:50 07/23/23 07:50 07/23/23 07:50 Laboratory Results - last 24 hr 07/22/23 19:25: WBC 14.4 H, RBC 4.49 L, Hgb 12.5 L, Hct 39.5 L, MCV 88.1, MCH 27.8, MCHC 31.6 L, RDW 14.9, Plt Count 140 L, MPV 9.3, Neut % (Auto) 50.7, Lymph % (Auto) 42.0, [place] % (Auto) 4.8, Eos % (Auto) 1.9, Baso % (Auto) 0.7, Neut # (Auto) 7.3, Lymph # (Auto) 6.1 H, [place] # (Auto) 0.7, Eos # (Auto) 0.3, Baso # (Auto) 0.1, D-Dimer 0.73 H, Sodium 139, Potassium 3.6, Chloride 96 L, Carbon Dioxide 34 H, Anion Gap 12.6, BUN 35 H D, Creatinine 2.30 H, Estimated Creat Clear 20, Estimated GFR 27 L, Est GFR ( Amer) 33 L, Glucose 163 H D, Calcium 9.0, Total Bilirubin 0.8, AST 37, ALT 27, Alkaline Phosphatase 74, Troponin I 0.15 H, NT-Pro-B Natriuret Pep 07749 H, Total Protein 7.4, Albumin 4.2, Globulin 3.2, Albumin/Globulin Ratio 1.3 07/22/23 23:30: Troponin I 0.11 H 07/23/23 00:15: SARS-CoV-2 (PCR) Not detected, Influenza A Untype (PCR) Not detected, Influenza Type B (PCR) Not detected 07/23/23 02:50: Troponin I 0.11 H 07/23/23 05:23: WBC 14.3 H, RBC 4.17 L, Hgb 11.8 L, Hct 37.7 L, MCV 90.3, MCH 28.2, MCHC 31.2 L, RDW 14.7, Plt Count 126 L, MPV 8.4, Neut % (Auto) 59.6, Lymph % (Auto) 35.3, [place] % (Auto) 4.4, Eos % (Auto) 0.3, Baso % (Auto) 0.5, Neut # (Auto) 8.5 H, Lymph # (Auto) 5.0 H, [place] # (Auto) 0.6, Eos # (Auto) 0.0, Baso # (Auto) 0.1, Sodium 143, Potassium 3.7, Chloride 96 L, Carbon Dioxide 30, Anion Gap 20.7 H, BUN 35 H, Creatinine 2.20 H, Estimated Creat Clear 21, Estimated GFR 29 L, Est GFR ( Amer) 35 L, Glucose 140 H, Calcium 9.2, Magnesium 2.0, Total Bilirubin 1.4 H, AST 42, ALT 32, Alkaline Phosphatase 73, Total Protein 7.8, Albumin 4.6, Globulin 3.2, Albumin/Globulin Ratio 1.4 I & O for Last 24 hours: Intake & Output 07/20/23 07/21/23 07/22/23 07/23/23 23:59 23:59 23:59 23:59 Intake Total 240 / 240 Output Total 100 / 600 900 / 900 Balance -100 / -600 -660 / -660 Weight 59.874 kg 59.557 kg Constitutional Constitutional: no acute distress and cooperative *Routine HEENT Exam Head: Present normocephalic and atraumatic Eye: Present EOMI and PERRL ENT: Present mucous membranes moist *Routine Neck Exam Neck: Present supple, full ROM and trachea midline *Routine Respiratory Exam Respiratory: Present rhonchi, normal respiratory effort and symmetric chest movement *Routine Cardiovascular Exam Cardiovascular: Present RRR, Normal S1, Normal S2 and murmur *Routine Abdominal Exam Abdominal: Present soft and normoactive bowel sounds; Absent tenderness *Routine Extremities Exam Extremities: Present full ROM, pulses intact and normal capillary refill; Absent clubbing or edema *Routine Skin Exam Skin: Present warm; Absent rash *Routine Neurological Exam Neurological: Present alert, oriented X3, moving all extremitie
--- NOTE | 2023-07-23 08:31 | EXP.CARDIOVE ---
[facility] Cardioversion Cardioversion Date: 07/22/23 Provider:: MARICHUY Ly Procedure Performed:: Synchronized cardioversion Diagnosis:: Atrial fibrillation Procedure Summary:: Patient was brought to the cardiac Professor Of Social Work as an outpatient. After informed consent was obtained, anesthesia provided sedation during which time the patient's internal AUTOMOBILE SEAT COVER INSTALLER-D was used to deliver a 41 J shock which converted the patient from atrial fibrillation to sinus rhythm. Patient tolerated procedure without complications. Of note, the defibrillator interrogation revealed atrial lead malfunction with ohms greater than 3000 indicating either fracture or lead displacement. Chest x-ray was obtained showing lead position consistent with implant. We will plan to proceed with atrial lead replacement in the near future. Complications:: None Conculsion:: Successful electrical cardioversion to sinus rhythm
--- NOTE | 2023-07-23 08:39 | HMH.PHAINT1 ---
Pharmacy Intervention Comments: MEDICATION RECONCILIATION COMPLETED ON PATIENT USING EXTERNAL FILL HISTORY FROM PHARMACY. -JAYCEE SALAZAR, RONALD
--- NOTE | 2023-07-23 11:06 | CA_ITS ---
APPROVED REPORT EXAM: Comprehensive 2D, Doppler, and color-flow Echocardiogram Clinical Trial Data Manager: Teresa Vasquez, RCS, RVS Ht: 5 ft 10 in Wt: 131lbs BSA: 1.74 BP: 102/68 mmHg Rhythm: Atrial Fibrillation Indications: CM, AFBIB, AICD, Heart failure, COPD 2D Dimensions LVDd 5.74 cm LVEF (Visual) 11.60 % LVDs 5.44 cm LA Volume 98.40 mL Aortic Root 2.70 cm LA Volume Index 55.00 mL/m2 (M/F) 16-34 Left Atrium 4.09 cm LVOT 1.92 cm (M/F) 1.5-2.5 M-Mode Dimensions RVDd 3.37 cm (0.9-2.6) LA Diam 4.20 cm (1.9-4.0) LVDd 5.84 cm (3.5-5.7) Ao Diam 2.75 cm (2.0-3.7) LVDs 5.63 cm (3.5-5.7) IVSd 0.64 cm (0.6-1.1) PWd 0.80 cm (0.6-1.1) EF (Teich) 13.20% EPSs 2.36 cm FS 6.00% EDV (Teich) 179.30 mL TAPSE 2.24 (<1.7) ESV (Teich) 155.60 mL LV Diastology E Decel Time 207.00 (160-240 msec) E/A Ratio 1.57 MED E' 2.40 (< 7 cm/sec) MED A' 5.60 cm/s E'/MED E' Ratio 32.79 (>14) LAT E' 5.30 (<10 cm/sec) LAT A' 6.00 cm/s E/LAT E' Ratio 14.85 (>14) Pulm Vein s 18.00 cm/sec Aortic Valve LVOT Max 80.00 (70-110 cm/s) LVOT VTI 13.15 cm AoV Peak Neo. 143.00 (50-130 cm/s) AO Peak GR. 8.20 mmHg AO Mean GR. 4.00 (<5 mmHg) AO VTI 27.87 (18-25 cm) ESTRELLITA (VTI) 1.37 (2.5-4.5 cm2) Mitral Valve MV A Velocity 50.00 (40-130 cm/s) E/A Ratio 1.57 MV Decel. Time 207.00 (160-240 ms) MV Mean Gr. 1.20 (<2mmHg) Pulmonary Valve PV Peak Velocity 66.00 (50-150 cm/s) PA End VMAX 186.00 cm/s Tricuspid Valve TR P. Velocity 317.00 cm/s RAP Estimate 10.00 mmHg RVSP 50.30 mmHg Left Ventricle Left ventricle is moderately dilated. There is severe reduction in LV systolic function. There is normal left ventricular wall thickness. Severe global hypokinesis is present. Grade 2 diastolic dysfunction is present. LVEF is 10-15% Right Ventricle The right ventricle is normal size. The right ventricular systolic function is normal. A device lead is noted in the right ventricle. Atria Left atrium is severely dilated. Right atrium is moderately dilated. There is no Doppler evidence of interatrial shunt. Aortic Valve The aortic valve is mildly thickened. There is no aortic valvular stenosis. No aortic regurgitation is present. Mitral Valve There is mild mitral annular calcification. The mitral valve is mildly thickened. No evidence of mitral valve stenosis. Moderate to severe mitral regurgitation. The mitral regurgitation jet is centrally directed. There is pulmonary vein systolic flow blunting, suggestive of significant mitral regurgitation. Tricuspid Valve The tricuspid valve leaflets are thin and pliable. Moderate tricuspid regurgitation. RVSP is 30-35 mmHg. Pulmonic Valve The pulmonary valve is normal in structure. Mild pulmonic regurgitation. Great Vessels The aortic root is normal in size. The ascending aorta is not well visualized. IVC is normal in size and collapses >50% with inspiration. Pericardium There is no pericardial effusion. Other Information Study Quality: Fair Conclusion Severe reduction in LV systolic function (LVEF 10-15%) Grade 2 diastolic dysfunction. Biatrial dilatation. Moderate to severe mitral regurgitation. Moderate tricuspid regurgitation. Elevated RVSP 30-35 mmHg. Compared to prior study from 07/08/2023, there are overall no significant changes. Electronically signed by : Lynne Steen MD 07/23/2023 18:11:14
--- NOTE | 2023-07-23 11:51 | PC.NURSE ---
pt's O2 titrated to 1LNC.
--- NOTE | 2023-07-23 14:09 | EXP.CARD.CON ---
History of Present Illness History of Present Illness Consult date: 07/23/23 Requesting physician: Og Rothman Consult reason: shortness of breath Chief complaint: SOA History of present illness: This is an 87-year-old white gentleman who presented to the emergency department with complaints of shortness of breath. His past known history of atrial fibrillation on anticoagulation, COPD, HFrEF status post AICD placement,, and coronary artery disease. The patient was here at [facility] yesterday for a cardioversion. He was successfully cardioverted back to sinus rhythm. He states that he went home and had sudden onset of shortness of breath and bilateral lower extremity edema. The patient states that the night before he had also been experiencing some shortness of breath which he thought was from amiodarone so he stopped taking the medicine. He states yesterday during the day he had no complaints of shortness of breath and then yesterday evening especially when he was lying down he had significant shortness of breath. He states that this got severe and was associated with edema in his lower extremities. This was very unusual for him and concerning so he came to the emergency department. He denies any chest pain or pressure. He denies any fever, chills, nausea, vomiting or diarrhea. [facility] Disclaimer: The information contained in this section may have been updated after the patient was seen, as this information can be updated by other users. Medical History (Updated 07/23/23 @ 14:16 by Kayla Dexter APRN) Arrhythmia Atrial fibrillation Atypical angina Bilateral lower extremity edema CAD (coronary artery disease) Cardiomyopathy Dyspnea Elevated troponin Fractured atrial pacemaker lead wire History of cardioversion History of pacemaker Hyperlipidemia Mitral valve insufficiency NSTEMI (non-ST elevated myocardial infarction) PAC (premature atrial contraction) Presence of combination internal cardiac defibrillator (ICD) and pacemaker Pulmonary HTN PVC (premature ventricular contraction) Shortness of Breath Systolic heart failure Trigeminy Surgical History (Updated 07/22/23 @ 22:49 by Mariah Gill RN) Hx of appendectomy Social History (Updated 07/22/23 @ 08:16 by Claus England CRNA) Smoking Status: Unknown if ever smoked alcohol intake: never substance use type: denies use current occupational status: retired Travel in the last 8 weeks: Inside the [place] household members: spouse housing: house current occupational exposures/hazards: No caffeine: No Review of Systems Review of Systems Review of systems:: pertinent systems reviewed and negative unless documented below Constitutional Constitutional: Reports system reviewed and no additional complaints, except as documented Eyes Eyes: Reports system reviewed and no additional complaints, except as documented ENT Ears, Nose, Mouth, and Throat: Reports system reviewed and no additional complaints, except as documented *Cardiovascular Cardiovascular: Reports system reviewed and no additional complaints, except as documented, Denies chest pain, Reports dyspnea, Reports dyspnea on exertion, Reports leg edema, Reports orthopnea and Reports pedal edema *Respiratory Respiratory: Reports system reviewed and no additional complaints, except as documented, Reports dyspnea, Reports dyspnea on exertion and Denies wheezing *Gastrointestinal Gastrointestinal: Reports system reviewed and no additional complaints, except as documented *Genitourinary Genitourinary: Reports system reviewed and no additional complaints, except as documented *Musculoskeletal Musculoskeletal: Reports system reviewed and no additional complaints, except as documented Integumentary/Breasts Skin/Breast: Reports system reviewed and no additional complaints, except as documented *Neurologic Neurologic: Reports system reviewed and no additional complaints, except as documented
--- NOTE | 2023-07-23 16:49 | PC.NURSE ---
pt alert and oriented. ls cta. abdomen soft, nontender. pt voiding per urinal. pt was given IVP Lasix x 2 this shift. pt had echo, awaiting results. family has been at bedside. call light w/i reach.
--- NOTE | 2023-07-23 18:44 | PC.NURSE ---
pt placed back on 1LNS d/t checking pt's sats and O2 88 on RA. 1LNC sat at 91%.
[2023-07-24] VITALS: BP 102/52; PULSE 80; RESP 18; TEMP 37.1; O2SAT 90
[2023-07-24 04:00] VITALS: BP 105/48; PULSE 80; PULSE 86; RESP 18; TEMP 36.8; O2SAT 95; BMI 18.1
--- NOTE | 2023-07-24 05:58 | PC.NURSE ---
Patient has slept well this shift. Remains on 1L NC with O2 sat 90-97%. Patient voiced no concerns of pain t/o shift.
[2023-07-24 06:23] VITALS: PULSE 77; PULSE 87; O2SAT 96
--- NOTE | 2023-07-24 06:30 | PC.NURSE ---
Patient weaned to RA at this time.
[2023-07-24 07:00] LABS: Basophils # 0.1 K/mm3 (0-0.2); Basophils % 0.7 % (0.1-2.0); Eosinophils # 0.3 K/mm3 (0.0-0.4); Eosinophils % 2.1 % (0.1-12.0); Hematocrit 35.6 % (42.0-52.0); Hemoglobin 11.4 g/dL (14.1-18.0); Lymphocytes # 5.7 K/mm3 (0.7-4.5); Lymphocytes % 46.6 % (10-50); Mean Corpuscular Hemoglobin 27.7 pg (27.0-31.2); Mean Corpuscular Volume 86.4 fl (80-94); Mean Platelet Volume 9.1 fl (7.4-10.4); Monocytes # 0.7 K/mm3 (0.1-1.0); Monocytes % 5.5 % (1.7-9.3); Neutrophils # 5.5 K/mm3 (1.8-7.8); Platelet Count 138 K/mm3 (142-424); Red Blood Count 4.13 M/mm3 (4.60-6.20); Red Cell Distribution Width 14.8 % (11.5-17.5); White Blood Count 12.2 K/mm3 (4.8-10.8)
[2023-07-24 07:16] LABS: Anion Gap 12.4 mEq/L (5-15); Blood Urea Nitrogen 38 mg/dl (9-20); Calcium 8.9 mg/dl (8.4-10.2); Carbon Dioxide 31 mmol/L (22.0-30.0); Chloride 99 mmol/L (98-107); Creatinine Clearance Estimated 22 mL/min (50-200); Estimated Glomerular Filt Rate 32 ml/min (>60); GFR (African American) 39 ML/MIN (>60); Glucose 104 mg/dl (74-100); Potassium 3.4 mmoL/L (3.5-5.1); Sodium 139 mmol/L (136-145)
[2023-07-24 07:23] LABS: NT Pro Brain Natriuretic Pep. 13800 pg/mL (0-450)
[2023-07-24 08:00] VITALS: BP 98/49; PULSE 85; RESP 19; TEMP 36.6; O2SAT 91; O2SAT 98
[2023-07-24 08:00] LABS: Alanine Aminotransferase 16 U/L (12-78)
[2023-07-24 08:07] LABS: Albumin Level 3.6 g/dl (3.5-5.0); Alkaline Phosphatase 64 U/L (38-126); Aspartate Amino Transferase 29 U/L (17-59); Bilirubin,Direct 0.2 mg/dl (0.0-0.4); Bilirubin,Total 1.2 mg/dl (0.2-1.3); Chol/HDL Ratio 2.7 (1-3.5); Cholesterol 88 mg/dl (140-200); HDL Cholesterol 33 mg/dl (40-60); Total Protein,Serum 6.3 g/dl (6.3-8.2); Triglycerides 96 mg/dl (30-150); VLDL Cholesterol 19 mg/dL (0-40)
[2023-07-24 08:11] LABS: Direct LDL Cholesterol 42.12 mg/dL (100-129)
--- NOTE | 2023-07-24 08:35 | EXP.PN ---
Subjective *Date: 07/24/23 *Time: 08:44 Interval history: The patient is seen and examined today. He reports that he is feeling better. His is at bedside. He reports less dyspnea and increased ambulatory ability. Cardiology is due to have conversation with him today concerning amiodarone started. His morning labs identify a downward trend creatinine and leukocytosis. His BNP is downward trending as well. Nursing staff report that he remains afebrile with stable vital signs and saturating appropriately on room air. Exam Data for Last 24 hours Vital signs and Labs for Last 24 Hours: Temp Pulse Resp BP Pulse Ox O2 Del Method O2 Flow Rate 98.2 F 87 18 105/48 L 96 Room Air 1 07/24/23 04:00 07/24/23 06:23 07/24/23 04:00 07/24/23 04:00 07/24/23 06:23 07/24/23 06:44 07/24/23 06:23 Laboratory Results - last 24 hr 07/24/23 06:28: WBC 12.2 H, RBC 4.13 L, Hgb 11.4 L, Hct 35.6 L, MCV 86.4, MCH 27.7, MCHC 32.0, RDW 14.8, Plt Count 138 L, MPV 9.1, Neut % (Auto) 45.0, Lymph % (Auto) 46.6, [place] % (Auto) 5.5, Eos % (Auto) 2.1, Baso % (Auto) 0.7, Neut # (Auto) 5.5, Lymph # (Auto) 5.7 H, [place] # (Auto) 0.7, Eos # (Auto) 0.3, Baso # (Auto) 0.1, Sodium 139, Potassium 3.4 L, Chloride 99, Carbon Dioxide 31 H, Anion Gap 12.4, BUN 38 H, Creatinine 2.00 H, Estimated Creat Clear 22, Estimated GFR 32 L, Est GFR ( Amer) 39 L, Glucose 104 H, Calcium 8.9, Total Bilirubin 1.2, Direct Bilirubin 0.2, Conjugated Bilirubin 0.0, Indirect Bilirubin 1.0 H, Unconjugated Bilirubin 1.0, AST 29 D, ALT 16 D, Alkaline Phosphatase 64, NT-Pro-B Natriuret Pep 74434 H, Total Protein 6.3, Albumin 3.6 D, Triglycerides 96, Cholesterol 88 L, LDL Cholesterol Direct 42.12 L, VLDL Cholesterol 19, HDL Cholesterol 33 L, Cholesterol/HDL Ratio 2.7 I & O for Last 24 hours: Intake & Output 07/21/23 07/22/23 07/23/23 07/24/23 23:59 23:59 23:59 23:59 Intake Total 480 / 480 0 / 0 Output Total 100 / 600 1600 / 1600 0 / 0 Balance -100 / -600 -1120 / -1120 0 / 0 Weight 59.874 kg 59.557 kg 57.606 kg Constitutional Constitutional: no acute distress and cooperative *Routine HEENT Exam Head: Present normocephalic and atraumatic Eye: Present EOMI and PERRL ENT: Present mucous membranes moist *Routine Neck Exam Neck: Present supple, full ROM and trachea midline *Routine Respiratory Exam Respiratory: Present rhonchi, normal respiratory effort and symmetric chest movement *Routine Cardiovascular Exam Cardiovascular: Present RRR, Normal S1, Normal S2 and murmur *Routine Abdominal Exam Abdominal: Present soft and normoactive bowel sounds; Absent tenderness *Routine Extremities Exam Extremities: Present full ROM, pulses intact and normal capillary refill; Absent clubbing or edema *Routine Skin Exam Skin: Present warm; Absent rash *Routine Neurological Exam Neurological: Present alert, oriented X3, moving all extremities, vision grossly intact, hearing grossly intact and normal speech; Absent sensory deficit or motor deficit Routine Psychiatric Exam Psychiatric: Present normal affect, normal thought process, cooperative, good insight and good judgment Assessment and Plan *Assessment and plan (1) Acute on chronic HFrEF (heart failure with reduced ejection fraction): Status: Acute Category: Medical Code(s): I50.23 - Acute on chronic systolic (congestive) heart failure (2) Cardiomyopathy: Status: Chronic Qualifiers: Cardiomyopathy type: unspecified Qualified Code(s): I42.9 - Cardiomyopathy, unspecified Category: Medical Code(s): I42.9 - Cardiomyopathy, unspecified (3) Myocardial injury: Status: Acute Category: Medical Code(s): I5A - Non-ischemic myocardial injury (non-traumatic) (4) Atrial fibrillation: Status: Acute Qualifiers: Atrial fibrillation type: persistent (not longstanding) Qualified Code(s): I48.19 - Other persistent atrial fibrillation Category: M
--- NOTE | 2023-07-24 10:58 | EXP.CARD.PN ---
Subjective Subjective Date: 07/24/23 Time: 08:30 Principal diagnosis: Congestive heart failure, mitral regurgitation Interval history: The patient reports that he is feeling much better today. He states his shortness of breath has resolved and his bilateral lower extremity edema has resolved. He denies any chest pain or pressure. He denies any fever, chills, nausea, vomiting, diarrhea, PND or orthopnea. His vital signs are stable this morning. He states that he slept well and he is ready for discharge home. Exam Data for Last 24 hours Vital signs and Labs for Last 24 Hours: Temp Pulse Resp BP Pulse Ox O2 Del Method O2 Flow Rate 97.9 F 85 19 98/49 L 98 Room Air 1 07/24/23 08:00 07/24/23 08:00 07/24/23 08:00 07/24/23 08:00 07/24/23 08:00 07/24/23 09:30 07/24/23 06:23 Laboratory Results - last 24 hr 07/24/23 06:28: WBC 12.2 H, RBC 4.13 L, Hgb 11.4 L, Hct 35.6 L, MCV 86.4, MCH 27.7, MCHC 32.0, RDW 14.8, Plt Count 138 L, MPV 9.1, Neut % (Auto) 45.0, Lymph % (Auto) 46.6, [place] % (Auto) 5.5, Eos % (Auto) 2.1, Baso % (Auto) 0.7, Neut # (Auto) 5.5, Lymph # (Auto) 5.7 H, [place] # (Auto) 0.7, Eos # (Auto) 0.3, Baso # (Auto) 0.1, Sodium 139, Potassium 3.4 L, Chloride 99, Carbon Dioxide 31 H, Anion Gap 12.4, BUN 38 H, Creatinine 2.00 H, Estimated Creat Clear 22, Estimated GFR 32 L, Est GFR ( Amer) 39 L, Glucose 104 H, Calcium 8.9, Total Bilirubin 1.2, Direct Bilirubin 0.2, Conjugated Bilirubin 0.0, Indirect Bilirubin 1.0 H, Unconjugated Bilirubin 1.0, AST 29 D, ALT 16 D, Alkaline Phosphatase 64, NT-Pro-B Natriuret Pep 38211 H, Total Protein 6.3, Albumin 3.6 D, Triglycerides 96, Cholesterol 88 L, LDL Cholesterol Direct 42.12 L, VLDL Cholesterol 19, HDL Cholesterol 33 L, Cholesterol/HDL Ratio 2.7 I & O for Last 24 hours: Intake & Output 07/21/23 07/22/23 07/23/23 07/24/23 23:59 23:59 23:59 23:59 Intake Total 480 / 480 240 / 240 Output Total 100 / 600 1600 / 1600 1999 / 1999 Balance -100 / -600 -1120 / -1120 -1760 / -1760 Weight 132 lb 131 lb 4.8 oz 127 lb Constitutional Constitutional: no acute distress and average body habitus *Routine HEENT Exam Head: Present normocephalic and atraumatic ENT: Present mucous membranes moist *Routine Neck Exam Neck: Present supple, full ROM and normal carotid upstroke; Absent JVD, carotid bruit or lymphadenopathy *Routine Respiratory Exam Respiratory: Present CTA bilaterally, normal respiratory effort, able to speak in complete sentences and symmetric chest movement *Routine Cardiovascular Exam Cardiovascular: Present RRR, Normal S1, Normal S2 and murmur; Absent gallop *Routine Abdominal Exam Abdominal: Present soft and normoactive bowel sounds; Absent tenderness, distended or organomegaly *Routine Extremities Exam Extremities: Present full ROM, pulses intact and normal capillary refill; Absent cyanosis, clubbing or edema *Routine Skin Exam Skin: Present intact and warm; Absent erythema *Routine Neurological Exam Neurological: Present alert, oriented X3 and CN II-XII intact; Absent sensory deficit or motor deficit Routine Psychiatric Exam Psychiatric: Present normal affect Progress Note: A&P Assessment and plan (1) Acute on chronic HFrEF (heart failure with reduced ejection fraction): Status: Acute (2) Cardiomyopathy: Status: Chronic (3) Atrial fibrillation: Status: Acute (4) Chronic anticoagulation: Status: Acute (5) COPD (chronic obstructive pulmonary disease): Status: Chronic (6) Tobacco dependence: Status: Acute (7) Automatic implantable cardioverter-defibrillator in situ: Status: Chronic (8) CAD (coronary artery disease): Status: Chronic (9) Pulmonary HTN: Status: Chronic Assessment and Plan Assessment and Plan for All Diagnoses:: Plan: 1. The patient was admitted to the hospital with shortness of breath and was found to have an acute exacerbation of his chronic HFrEF. The patient has known cardiomyopa
[2023-07-24 11:10] VITALS: PULSE 77; PULSE 84; O2SAT 92
[2023-07-24 12:00] VITALS: BP 106/65; PULSE 83; PULSE 90; RESP 17; TEMP 36.6; O2SAT 94
--- NOTE | 2023-07-24 12:51 | EXP.DC.SUM ---
General Admission date:: 07/22/23 Discharge date: 07/24/23 HPI HPI HPI: This is a 87-year-old male with PMHx of atrial fibrillation on anticoagulation, COPD not on home oxygen, CHF status post pacemaker placement, CAD, who presented to the emergency department for evaluation of increasaed and worsened shortness of breath. Patient was seen earleir today for AICD interrogation. Showing a faulty wire. Per recent cardiology note patient eating ejection fraction down to 10% with atrial fibrillation, episodes of V. tach lasting up to 30 seconds. Patient denies chest pain however since he was discharged home he has had worsening shortness of breath. Admitted for treatment and management. Hospital Course Hospital Course Hospital Course: This is an 87-year-old male who presents to the emergency department with shortness of air. A recent echocardiogram has identified an ejection fraction of 10 to 15% with mitral regurgitation and RVSP 35 mmHg. AICD, atrial fibrillation on chronic anticoagulation and ongoing tobacco dependence. He underwent DCCV 07/22/2023 with identified atrial lead dysfunction. Problems addressed as follows: Acute on chronic HFrEF Ischemic cardiomyopathy with AICD Coronary artery disease Telemetry monitoring Routine blood pressure monitoring Cardiology consultation and recommendations noted Echocardiogram reviewed with EF 10% and MR with RVSP 35 mmHg Antiplatelet therapy Statin therapy Beta-rosalva therapy ARB therapy Loop diuretic therapy Avoiding SGLT2 with TIO Avoiding aldosterone antagonist with TIO Trending labs and inflammatory markers Accurate I's and O's Goals of care conversation Atrial fibrillation Chronic anticoagulation Telemetry identifies paced rhythm Beta-rosalva therapy ARB therapy rhythm DCCV 07/22/2023 Cardiology following Atrial lead dysfunction a concern Anticoagulation therapy with Eliquis adjusted for age and Creatinine Amiodarone 400 mg po BID x 14 days then 200 mg po bid for 14 days then 200 mg once daily Acute kidney injury Concerns for cardiorenal syndrome Baseline creatinine 1.3 Trending electrolytes and creatinine Caution with IV fluids with EF 10 to 15% Avoiding NSAIDs Outpatient weekly renal profiles Chronic hypoxic respiratory failure COPD not in exacerbation ED chest x-ray with right perihilar opacity Pulse oximetry monitoring Oxygen therapy to maintain appropriate oxygen saturations Currently oxygenating appropriately at his baseline 2 L Agnes/Cb inhalation therapy Doxycycline 100 mg po bid x 7 days on discharge Tobacco dependence Tobacco cessation education Nicotine replacement therapy The patient identified improvement in his dyspnea throughout his hospitalization. Cardiology made medication recommendations for discharge and will continue outpatient evaluations. The patient identified improvement and request to be discharged home to the care of his family. He understands the importance of complete tobacco smoking to improve his health. I have recommended a 1 week follow-up with his PCP to evaluate his renal function which identified improvement during his hospitalization but did not return to baseline. We discussed his ACC guided therapy for his ejection fraction and medication effect on renal function. The patient understands his prognoses and plans to be compliant with follow-up. I spent 35 minutes in [id number] time with the patient, family at bedside and nursing staff concerning the discharge process. We discussed the admitting diagnoses and hospital course. We discussed identified improvement and the patient's desire to be discharged. We reviewed inpatient studies and imaging. The patient voiced understanding on the importance of follow-up with his primary care provider and cardiology team. The patient plans to be compliant with the medication regimen prescribed and follow-up appointments. He understands the importance of complete tobacco cessation to improve his
--- NOTE | 2023-07-25 13:06 | CARE MANAGER ---
Called and spoke with patietn regarding recent discharge. Patient stated he is doing well, just tires easily. Patient has started all new medication and aware of scheduled f/u appt. I encouraged him to schedule a f/u appt with his PCP, Dr. Hughes. No concerns voiced at time of call.
== END 2023-07-24 14:43 | disposition home or self-care (01) ==
LOC: ER 21:54 → 2ND 21:56
PROVIDERS: Nurse Practitioner Family; Admitting Provider Family Medicine; Emergency Provider Emergency Medicine; Visit Provider Family Medicine
DX: I11.0 Hypertensive heart disease with heart failure; I50.23 Acute on chronic systolic (congestive) heart failure; I25.5 Ischemic cardiomyopathy; I5A Non-ischemic myocardial injury (non-traumatic); I48.19 Other persistent atrial fibrillation; Z79.01 Long term (current) use of anticoagulants; J44.9 Chronic obstructive pulmonary disease, unspecified; F17.200 Nicotine dependence, unspecified, uncomplicated; R79.89 Other specified abnormal findings of blood chemistry; R77.8 Other specified abnormalities of plasma proteins; Z95.810 Presence of automatic (implantable) cardiac defibrillator; I25.10 Atherosclerotic heart disease of native coronary artery without angina pectoris; I27.20 Pulmonary hypertension, unspecified; R06.02 Shortness of breath; R60.0 Localized edema; I34.0 Nonrheumatic mitral (valve) insufficiency; T82.110A Breakdown (mechanical) of cardiac electrode, initial encounter
CPT/HCPCS: 36415; 71045; 80048; 80053; 80061; 80076; 83735; 83880; 84484; 85025; 85378; 87636; 92960; 93005; 93306; 94640; 94761; 99291; G0378

== ENCOUNTER → 2023-07-29 10:36 | Outpatient (CLI) | payer MEDICARE, SELFPAY ==
[2023-07-29 14:25] LABS: Chloride 98 mmol/L (98-107); Potassium 3.2 mmoL/L (3.5-5.1); Sodium 140 mmol/L (136-145)
[2023-07-29 14:28] LABS: Anion Gap 15.2 mEq/L (5-15); Blood Urea Nitrogen 31 mg/dl (9-20); Carbon Dioxide 30 mmol/L (22.0-30.0); Estimated Glomerular Filt Rate 30 ml/min (>60); GFR (African American) 37 ML/MIN (>60)
[2023-07-29 14:29] LABS: Calcium 9.2 mg/dl (8.4-10.2); Glucose 146 mg/dl (74-100)
== END ==
PROVIDERS: Visit Provider Nurse Practitioner Family
DX: I25.10 Atherosclerotic heart disease of native coronary artery without angina pectoris (principal); I27.20 Pulmonary hypertension, unspecified; I48.91 Unspecified atrial fibrillation; I50.20 Unspecified systolic (congestive) heart failure; I50.9 Heart failure, unspecified; Z95.810 Presence of automatic (implantable) cardiac defibrillator
CPT/HCPCS: 36415; 80048

== ENCOUNTER → 2023-08-19 10:57 | Outpatient (CLI) | payer MEDICARE, SELFPAY ==
[2023-08-19 11:43] LABS: Basophils # 0.1 K/mm3 (0-0.2); Basophils % 0.6 % (0.1-2.0); Eosinophils # 0.3 K/mm3 (0.0-0.4); Eosinophils % 2.4 % (0.1-12.0); Hematocrit 37.7 % (42.0-52.0); Hemoglobin 12.7 g/dL (14.1-18.0); Lymphocytes % 50.7 % (10-50); Mean Corpuscular HGB Conc 33.8 g/dL (31.8-35.4); Mean Corpuscular Hemoglobin 30.3 pg (27.0-31.2); Mean Corpuscular Volume 89.7 fl (80-94); Mean Platelet Volume 9.6 fl (7.4-10.4); Monocytes # 0.5 K/mm3 (0.1-1.0); Monocytes % 4.5 % (1.7-9.3); Neutrophils # 4.9 K/mm3 (1.8-7.8); Neutrophils % 41.8 % (37.0-80.0); Platelet Count 105 K/mm3 (142-424); Red Cell Distribution Width 15.6 % (11.5-17.5); White Blood Count 11.8 K/mm3 (4.8-10.8)
[2023-08-19 11:44] LABS: MANUAL DIFFERENTIAL MANUAL DIFFERENTIAL (MANUAL DIFF)
[2023-08-19 11:52] LABS: Alanine Aminotransferase 26 U/L (12-78); Alkaline Phosphatase 56 U/L (38-126); Anion Gap 11.8 mEq/L (5-15); Aspartate Amino Transferase 39 U/L (17-59); Bilirubin,Direct 0.1 mg/dl (0.0-0.4); Bilirubin,Indirect 0.5 mg/dL (0.0-0.9); Bilirubin,Total 0.6 mg/dl (0.2-1.3); Bilirubin,Unconjugated 0.4 mg/dL (0.0-1.1); Blood Urea Nitrogen 21 mg/dl (9-20); Calcium 8.9 mg/dl (8.4-10.2); Carbon Dioxide 32 mmol/L (22.0-30.0); Chloride 97 mmol/L (98-107); Chol/HDL Ratio 2.1 (1-3.5); Cholesterol 121 mg/dl (140-200); Estimated Glomerular Filt Rate 38 ml/min (>60); GFR (African American) 47 ML/MIN (>60); Glucose 122 mg/dl (74-100); HDL Cholesterol 59 mg/dl (40-60); Magnesium 1.7 mg/dl (1.6-2.3); Sodium 138 mmol/L (136-145); Total Protein,Serum 6.3 g/dl (6.3-8.2); Triglycerides 123 mg/dl (30-150); VLDL Cholesterol 25 mg/dL (0-40)
[2023-08-19 12:00] LABS: Lymphocytes % 56 % (10-50); Monocytes % 2 % (2-9); Neutrophils % 42 % (42-76); Platelet Estimate Slight Decrease; RBC Morphology Normal; Total Cells Counted 100
[2023-08-19 12:01] LABS: NT Pro Brain Natriuretic Pep. 5960 pg/mL (0-450)
[2023-08-19 12:03] LABS: Direct LDL Cholesterol 49.98 mg/dL (100-129)
[2023-08-19 12:08] LABS: Free T4 (Free Thyroxine) 1.27 ng/dl (0.78-2.19)
[2023-08-19 12:23] LABS: Thyroid Stimulating Hormone 5.47 uIU/mL (0.465-4.68)
[2023-08-19 13:35] LABS: Potassium 2.8 mmoL/L (3.5-5.1)
== END ==
PROVIDERS: Physician Assistant; PCP Family Medicine; Visit Provider Nurse Practitioner Family
DX: I25.10 Atherosclerotic heart disease of native coronary artery without angina pectoris (principal); I26.99 Other pulmonary embolism without acute cor pulmonale; I48.91 Unspecified atrial fibrillation; I50.23 Acute on chronic systolic (congestive) heart failure; R06.00 Dyspnea, unspecified; Z95.810 Presence of automatic (implantable) cardiac defibrillator; I50.20 Unspecified systolic (congestive) heart failure; I42.8 Other cardiomyopathies
CPT/HCPCS: 36415; 80048; 80061; 80076; 83735; 83880; 84439; 84443; 85007; 85025

== ENCOUNTER → 2023-08-25 10:46 | Outpatient (CLI) | payer MEDICARE, SELFPAY ==
[2023-08-25 11:31] LABS: Chloride 101 mmol/L (98-107); Potassium 3.8 mmoL/L (3.5-5.1); Sodium 139 mmol/L (136-145)
[2023-08-25 11:34] LABS: Blood Urea Nitrogen 17 mg/dl (9-20); Estimated Glomerular Filt Rate 41 ml/min (>60); GFR (African American) 50 ML/MIN (>60)
[2023-08-25 11:35] LABS: Anion Gap 9.8 mEq/L (5-15); Calcium 8.4 mg/dl (8.4-10.2); Carbon Dioxide 32 mmol/L (22.0-30.0); Glucose 118 mg/dl (74-100)
== END ==
PROVIDERS: Visit Provider Nurse Practitioner Family
DX: I50.20 Unspecified systolic (congestive) heart failure (principal)
CPT/HCPCS: 36415; 80048

== ENCOUNTER 2023-10-20 21:15 | Inpatient (IN) | payer MEDICARE, SELFPAY ==
[2023-10-20 21:31] VITALS: BP 111/83; PULSE 72; RESP 16; TEMP 36.8; O2SAT 97; BMI 20.8
--- NOTE | 2023-10-20 21:41 | ED_ITS ---
Discharge Plan Disposition Patient Disposition: Admitted Clinical Impressions Clinical Impression: TIO (acute kidney injury), Acute hypokalemia Discharge ED Provider: Dann Lozano General Adult HPI <Dann Lozano MD - Last Filed: 10/20/23 23:24> General Chief complaint: Abdominal Pain Stated complaint: SOA Time Seen by Provider: 10/20/23 21:21 Mode of Arrival: Ambulatory Source of Information: Patient, Spouse and Relative Limitations: No Limitations Description of Symptoms (Recalled from ER Triage Doc. by RN): pt c/o consipation stating his last normal BM was 3d ago. pt states he had a small bm yesterday but not normal for him. pts abdomen is distended and firm. pt denies pain. pt states he has taken doculase today and miralax. pt also c/o SOA. pt has a hx of COPD nonoxygen dependent. He states that, it feels like I can't catch my breathe. History of Present Illness HPI narrative: Patient is a 88-year-old male with multiple comorbidities who presents emergency department for evaluation of constipation. Patient has had a bowel movement in 3 days. He is intermittently passing flatus. Constipation is refractory to multiple [id number] interventions at home. No other acute complaints at this time. Of note he is currently being managed for his heart failure where they are adjusting his diuretic regimen on an outpatient basis. Patient is still voiding appropriately however does have some difficulty straining. Related Data Home Medications Medication Instructions Recorded Confirmed rosuvastatin 40 mg tablet (Crestor) 40 mg PO DAILY Cholesterol 07/22/23 09/16/23 metoprolol succinate 25 mg 25 mg PO DAILY 08/19/23 09/16/23 tablet,extended release 24 hr Previous Rx's Medication Instructions Recorded apixaban 5 mg tablet (Eliquis) 2.5 mg PO BID #60 tabs 07/24/23 amiodarone 400 mg tablet 200 mg PO BID #60 tabs 07/29/23 sacubitril 24 mg-valsartan 26 mg 1 tab PO BID #60 tabs 08/01/23 tablet (Entresto) potassium chloride 20 mEq 20 meq PO BID #10 tabs 08/19/23 tablet,extended release furosemide 80 mg tablet 40 mg PO DAILY PRN edema #30 tabs 09/16/23 pantoprazole 40 mg tablet,delayed 40 mg PO DAILY #30 tabs 09/16/23 release Allergies Allergy/AdvReac Type Severity Reaction Status Date / Time No Known Allergies Allergy Verified 09/16/23 10:10 [facility] <Dann Lozano MD - Last Filed: 10/20/23 23:24> [facility] Disclaimer: The information contained in this section may have been updated after the patient was seen, as this information can be updated by other users. Medical History Arrhythmia Atrial fibrillation Atypical angina Bilateral lower extremity edema CAD (coronary artery disease) Cardiomyopathy Dyspnea Elevated troponin Fractured atrial pacemaker lead wire HFrEF (heart failure with reduced ejection fraction) History of cardioversion History of pacemaker Hyperlipidemia Hypokalemia Mitral valve insufficiency NSTEMI (non-ST elevated myocardial infarction) PAC (premature atrial contraction) Presence of combination internal cardiac defibrillator (ICD) and pacemaker Pulmonary HTN PVC (premature ventricular contraction) Shortness of Breath Systolic heart failure Trigeminy Surgical History Hx of appendectomy Social History Smoking Status: Never smoker alcohol intake: never substance use type: denies use current occupational status: retired Travel in the last 8 weeks: Inside the [place] household members: spouse housing: house current occupational exposures/hazards: No caffeine: No <Dann Lozano MD - Last Filed: 10/20/23 23:24> ROS Obtained: Yes Systems reviewed as appropriate & no additional complaints except as documented Physical Exam <Dann Lozano MD - Last Filed: 10/20/23 23:24> General General appearance: alert and in no apparent distress Head Head exam: atraumatic and normocephalic Eye Eye exam: Present PERRL and EOMI ENT ENT exam: Present mucous membranes moist Neck Neck exam: Present normal inspection Chest Chest inspection: Present normal inspection and symmetric chest wall rise Respiratory Respiratory exam: Absent respiratory distress Cardiovascular Cardiovascular exam: Present regular rate and normal rhythm Abdominal Exam Abdominal exam: Present soft; Absent tenderness Extremities Exam Extremities exam: Present normal inspection Neurological Exam Neurological exam: Present alert Psychiatric Psychiatric exam: Present normal affect Skin Skin exam: Present warm and dry Medical Decision Making <Dann Lozano MD - Last Filed: 10/20/23 23:24> Cornel Inquiry Pt receiving controlled substance: No Vital Signs: 10/20/23 21:31 10/21/23 00:00 10/21/23 00:30 Temperature 98.3 F Temperature Source Oral Pulse Rate 70 72 Pulse Rate [Left] 72 Respiratory Rate 16 21 22 Blood Pressure [Right Arm] 111/83 Blood Pressure Mean [Right Arm] 92 Blood Pressure Source [Right Arm] Automatic Cuff Blood Pressure Position [Right Arm] Sitting 02 Sat by Pulse Oximetry 97 97 96 10/21/23 01:00 Temperature Temperature Source Pulse Rate 70 Pulse Rate [Left] Respiratory Rate 16 Blood Pressure [Right Arm] Blood Pressure Mean [Right Arm] Blood Pressure Source [Right Arm] Blood Pressure Position [Right Arm] 02 Sat by Pulse Oximetry 95 Lab Data Lab Results 10/20/23 22:30: WBC 11.8 H, RBC 3.84 L, Hgb 11.0 L, Hct 33.5 L, MCV 87.1, MCH 28.6, MCHC 32.9, RDW 15.4, Plt Count 136 L, MPV 9.7, Neut % (Auto) 56.2, Lymph % (Auto) 35.8, Union % (Auto) 6.5, Eos % (Auto) 0.9, Baso % (Auto) 0.5, Neut # (Auto) 6.6, Lymph # (Auto) 4.2, Union # (Auto) 0.8, Eos # (Auto) 0.1, Baso # (Auto) 0.1, Sodium 140, Potassium 2.5 L*, Chloride 95 L, Carbon Dioxide 32 H, Anion Gap 15.5 H, BUN 31 H, Creatinine 2.90 H, Estimated Creat Clear 16, Estimated GFR 21 L, Est GFR ( Amer) 25 L, Glucose 131 H, Calcium 8.4, Total Bilirubin 0.8, AST 33, ALT 21, Alkaline Phosphatase 88, Total Protein 6.9, Albumin 4.3, Globulin 2.6, Albumin/Globulin Ratio 1.7 10/20/23 22:30 10/20/23 22:30 Orders (Tests/Meds): ED MEDICATIONS Generic Name Dose Route Start Last Admin Trade Name Freq PRN Reason Stop Dose Admin Acetaminophen 650 mg 10/21/23 00:49 Acetaminophen 325mg Tab PO 11/20/23 00:48 Q4HP PRN Fever or Mild Pain (1-3) Docusate Sodium 100 mg 10/21/23 01:00 Docusate Sodium 100 Mg Capsule PO 11/20/23 00:59 BID FILIBERTO Enoxaparin Sodium 40 mg 10/21/23 09:00 Enoxaparin 40mg/0.4ml Syringe SQ 11/20/23 08:59 DAILY FILIBERTO Potassium Chloride/Water 100 mls @ 50 mls/hr 10/20/23 22:54 10/20/23 23:23 Potassium Chloride 20meq/100ml Ivpb IV 10/21/23 02:53 50 mls/hr Q2H FILIBERTO Administration Sodium Chloride 1,000 mls @ 50 mls/hr 10/21/23 01:00 Sod Chlor 0.9% 1000ml Bag IV 11/20/23 00:59 .Q20H FILIBERTO Morphine Sulfate 2 mg 10/21/23 00:49 Morphine 2mg/Ml Syringe IV 11/20/23 00:48 Q2HP PRN Severe Pain (7-10) Ondansetron HCl 4 mg 10/21/23 00:49 Ondansetron 4mg/2ml Vial IV 11/20/23 00:48 Q8HP PRN Nausea Pantoprazole Sodium 40 mg 10/21/23 09:00 Pantoprazole 40mg Tablet PO 11/20/23 08:59 DAILY [facility] Discontinued Medications Generic Name Dose Route Start Last Admin Trade Name Freq PRN Reason Stop Dose Admin Lactated Ringer's 500 mls @ 250 mls/hr 10/20/23 23:02 10/20/23 23:22 Lactated Ringer's 500ml IV 10/21/23 01:01 250 mls/hr .Q2H ONE Administration Potassium Chloride 40 meq 10/20/23 22:54 10/20/23 23:23 Potassium Chloride 20meq Tab PO 10/20/23 22:55 40 meq ONCE ONE Administration ORDERS Category Date Time Status CT abdomen pelvis wo con Stat Cat Scan 10/20/23 22:25 Completed CBC w/Auto Diff [Complete Blood Count Auto Diff] Stat Lab 10/20/23 22:30 Completed CMP [Comprehensive Metabolic Panel] Stat Lab 10/20/23 22:30 Completed Complete Blood Count Auto Diff AMLAB Lab 10/21/23 06:00 Ordered Comprehensive Metabolic Panel [facility] Lab 10/21/23 06:00 Ordered Magnesium [facility] Lab 10/21/23 06:00 Ordered Medical Decision Narrative: In summary patient is 88-year-old male with past medical history described above who presents to the emergency department for evaluation of constipation. Patient is hemodynamically stable nontoxic-appearing upon arrival, afebrile, nontender abdominal exam. Patient is intermittently passing flatus. Shared decision-making discussion was had at bedside given that patient is constipated, he may have stercoral colitis versus incomplete bowel obstruction. Patient does not wish to proceed with workup at this time and wants to proceed with empiric treatment with soapsuds enema. Patient underwent enema and was largely unsuccessful. Given this it was felt that ruling out incomplete bowel obstruction was necessary. Workup will be conducted with hematologic labs, CT of the abdomen pelvis IV contrast. Initial workup reviewed by me, hematologic labs remarkable for significant hypokalemia which will be repleted IV and orally. Patient also has TIO on CKD. Patient's recent echo shows left ventricular estimated systolic function of 10 to 15%. Given recent Lasix dosage increase I suspect that patient is intravascularly deplete so 500 cc crystalloid will be ordered. Chest x-ray, EKG will be obtained. Given significant hypokalemia, TIO on CKD patient will likely require admission with cardiology consultation versus rapid outpatient follow-up. CT imaging pending at time of transfer of care to the oncoming physician, Dr. Blunt. <Derek Blunt MD - Last Filed: 10/21/23 01:10> Vital Signs: 10/20/23 21:31 10/21/23 00:00 10/21/23 00:30 Temperature 98.3 F Temperature Source Oral Pulse Rate 70 72 Pulse Rate [Left] 72 Respiratory Rate 16 21 22 Blood Pressure [Right Arm] 111/83 Blood Pressure Mean [Right Arm] 92 Blood Pressure Source [Right Arm] Automatic Cuff Blood Pressure Position [Right Arm] Sitting 02 Sat by Pulse Oximetry 97 97 96 10/21/23 01:00 Temperature Temperature Source Pulse Rate 70 Pulse Rate [Left] Respiratory Rate 16 Blood Pressure [Right Arm] Blood Pressure Mean [Right Arm] Blood Pressure Source [Right Arm] Blood Pressure Position [Right Arm] 02 Sat by Pulse Oximetry 95 Lab Data Lab Results 10/20/23 22:30: WBC 11.8 H, RBC 3.84 L, Hgb 11.0 L, Hct 33.5 L, MCV 87.1, MCH 28.6, MCHC 32.9, RDW 15.4, Plt Count 136 L, MPV 9.7, Neut % (Auto) 56.2, Lymph % (Auto) 35.8, Union % (Auto) 6.5, Eos % (Auto) 0.9, Baso % (Auto) 0.5, Neut # (Auto) 6.6, Lymph # (Auto) 4.2, Union # (Auto) 0.8, Eos # (Auto) 0.1, Baso # (Auto) 0.1, Sodium 140, Potassium 2.5 L*, Chloride 95 L, Carbon Dioxide 32 H, Anion Gap 15.5 H, BUN 31 H, Creatinine 2.90 H, Estimated Creat Clear 16, Estimated GFR 21 L, Est GFR ( Amer) 25 L, Glucose 131 H, Calcium 8.4, Total Bilirubin 0.8, AST 33, ALT 21, Alkaline Phosphatase 88, Total Protein 6.9, Albumin 4.3, Globulin 2.6, Albumin/Globulin Ratio 1.7 Orders (Tests/Meds): ED MEDICATIONS Generic Name Dose Route Start Last Admin Trade Name Freq PRN Reason Stop Dose Admin Acetaminophen 650 mg 10/21/23 00:49 Acetaminophen 325mg Tab PO 11/20/23 00:48 Q4HP PRN Fever or Mild Pain (1-3) Docusate Sodium 100 mg 10/21/23 01:00 Docusate Sodium 100 Mg Capsule PO 11/20/23 00:59 BID FILIBERTO Enoxaparin Sodium 40 mg 10/21/23 09:00 Enoxaparin 40mg/0.4ml Syringe SQ 11/20/23 08:59 DAILY FILIBERTO Potassium Chloride/Water 100 mls @ 50 mls/hr 10/20/23 22:54 10/20/23 23:23 Potassium Chloride 20meq/100ml Ivpb IV 10/21/23 02:53 50 mls/hr Q2H FILIBERTO Administration Sodium Chloride 1,000 mls @ 50 mls/hr 10/21/23 01:00 Sod Chlor 0.9% 1000ml Bag IV 11/20/23 00:59 .Q20H FILIBERTO Morphine Sulfate 2 mg 10/21/23 00:49 Morphine 2mg/Ml Syringe IV 11/20/23 00:48 Q2HP PRN Severe Pain (7-10) Ondansetron HCl 4 mg 10/21/23 00:49 Ondansetron 4mg/2ml Vial IV 11/20/23 00:48 Q8HP PRN Nausea Pantoprazole Sodium 40 mg 10/21/23 09:00 Pantoprazole 40mg Tablet PO 11/20/23 08:59 DAILY FILIBERTO Discontinued Medications Generic Name Dose Route Start Last Admin Trade Name Freq PRN Reason Stop Dose Admin Lactated Ringer's 500 mls @ 250 mls/hr 10/20/23 23:02 10/20/23 23:22 Lactated Ringer's 500ml IV 10/21/23 01:01 250 mls/hr .Q2H ONE Administration Potassium Chloride 40 meq 10/20/23 22:54 10/20/23 23:23 Potassium Chloride 20meq Tab PO 10/20/23 22:55 40 meq ONCE ONE Administration ORDERS Category Date Time Status CT abdomen pelvis wo con Stat Cat Scan 10/20/23 22:25 Completed CBC w/Auto Diff [Complete Blood Count Auto Diff] Stat Lab 10/20/23 22:30 Completed CMP [Comprehensive Metabolic Panel] Stat Lab 10/20/23 22:30 Completed Complete Blood Count Auto Diff [facility] Lab 10/21/23 06:00 Ordered Comprehensive Metabolic Panel [facility] Lab 10/21/23 06:00 Ordered Magnesium [facility] Lab 10/21/23 06:00 Ordered Medical Decision Narrative: In summary patient is 88-year-old male with past medical history described above who presents to the emergency department for evaluation of constipation. Patient is hemodynamically stable nontoxic-appearing upon arrival, afebrile, nontender abdominal exam. Patient is intermittently passing flatus. Shared decision-making discussion was had at bedside given that patient is constipated, he may have stercoral colitis versus incomplete bowel obstruction. Patient does not wish to proceed with workup at this time and wants to proceed with empiric treatment with soapsuds enema. Patient underwent enema and was largely unsuccessful. Given this it was felt that ruling out incomplete bowel obstruction was necessary. Workup will be conducted with hematologic labs, CT of the abdomen pelvis IV contrast. Initial workup reviewed by me, hematologic labs remarkable for significant hypokalemia which will be repleted IV and orally. Patient also has TIO on CKD. Patient's recent echo shows left ventricular estimated systolic function of 10 to 15%. Given recent Lasix dosage increase I suspect that patient is intravascularly deplete so 500 cc crystalloid will be ordered. Chest x-ray, EKG will be obtained. Given significant hypokalemia, TIO on CKD patient will likely require admission with cardiology consultation versus rapid outpatient follow-up. CT imaging pending at time of transfer of care to the oncoming physician, Dr. Blunt. On reassessment patient remained stable. On my interpretation of personnel monitor, patient remains in a regular paced rhythm with rate of 70. CT imaging interpreted by me, shows small volume ascites but no obvious bowel obstruction or other significant pathology. Despite the fact the patient has not had a bowel movement in 3 days, he has no significant stool burden. An interactive discussion was had with the hospitalist on-call for admission for TIO and IV repletion of critical hypokalemia. Critical Care <Dann Lozano MD - Last Filed: 10/20/23 23:24> Critical Care Time Critical Care Time: No <Derek Blunt MD - Last Filed: 10/21/23 01:10> Critical Care Time Critical Care Time: Yes Attestation: On 10/20/23, the high probability of a clinically significant, sudden or life threatening deterioration of the following system(s) cardiac required my full and direct attention, intervention and personal management. The time I documented below is in addition to time spent performing reported procedures but includes the following listed in this critical care notation. Total Time Total Critical Care Time: 40
--- NOTE | 2023-10-20 21:58 | PC.NURSE ---
Administered approximately 300 ml of soap suds enema. Patient tolerated well. Patient awaiting urge to have bowel movement at this time.
--- NOTE | 2023-10-20 22:06 | PC.NURSE ---
pt assisted to bathroom
--- NOTE | 2023-10-20 22:17 | PC.NURSE ---
Patient had small bowel movement. Administered an additional 300ml enema at this time.
--- NOTE | 2023-10-20 22:25 | CT_ITS ---
PROCEDURE INFORMATION: Exam: CT Abdomen And Pelvis Without Contrast Exam date and time: 10/20/2023 11:08 PM Age: 88 years old Clinical indication: Constipation; Prior surgery; Surgery date: 6+ months; Surgery type: Appendix removed; Additional info: Constipation, minimal flatus TECHNIQUE: Imaging protocol: Computed tomography of the abdomen and pelvis without contrast. Radiation optimization: All CT scans at this facility use at least one of these dose optimization techniques: automated exposure control; mA and/or kV adjustment per patient size (includes targeted exams where dose is matched to clinical indication); or iterative reconstruction. REPORTING DATA: Count of CT and Cardiac NM exams in prior 12 months: This patient has received 0 known CTs and 0 known cardiac nuclear medicine studies in the 12 months prior to the current study. COMPARISON: 1. CT ANGIO CHEST 03/17/2021 11:21 PM 2. CR XR CHEST PORTABLE 07/22/2023 9:02 PM 3. CR XR CHEST PORTABLE 07/22/2023 8:32 AM FINDINGS: Lungs: There is coarsening of the bronchovascular markings. Pleural spaces: There are small bilateral pleural effusions Liver: Normal. No mass. Gallbladder and bile ducts: Normal. No calcified stones. No ductal dilation. Pancreas: The pancreas is of normal size and morphology, without evidence of masses, cysts, or calcifications. The pancreatic duct is not dilated. Spleen: The spleen is normal in size and attenuation. No splenic masses or cysts are observed. Adrenal glands: The adrenal glands appear normal. Kidneys and ureters: Both kidneys are of normal size and show uniform attenuation. There are no renal masses, cysts, or calculi. The adrenal glands appear normal. Stomach and bowel: There are scattered colonic diverticula without evidence for active diverticulitis. Appendix: Patient is status post appendectomy. Intraperitoneal space: There is small volume ascites. Vasculature: Multiple pelvic phleboliths are present. Lymph nodes: No enlarged or pathological lymph nodes are identified in the abdomen or pelvis. Urinary bladder: There is moderate distention of the urinary bladder. Reproductive: The prostate is enlarged. Bones/joints: The visualized osseous structures of the abdomen and pelvis appear intact and normal for patient age with no evidence of fractures or lytic or sclerotic lesions. Soft tissues: There are fat containing bilateral inguinal hernias. IMPRESSION: Small volume ascites, otherwise unremarkable study. No acute pathology identified.
--- NOTE | 2023-10-20 22:25 | PC.NURSE ---
Patient had small bowel movement. Notified provider. Current plan of care is to continue workup at this time, informed patient, patient verbalized understanding.
[2023-10-20 22:40] LABS: Basophils # 0.1 K/mm3 (0-0.2); Basophils % 0.5 % (0.1-2.0); Eosinophils # 0.1 K/mm3 (0.0-0.4); Eosinophils % 0.9 % (0.1-12.0); Hematocrit 33.5 % (42.0-52.0); Lymphocytes # 4.2 K/mm3 (0.7-4.5); Lymphocytes % 35.8 % (10-50); Mean Corpuscular HGB Conc 32.9 g/dL (31.8-35.4); Mean Corpuscular Hemoglobin 28.6 pg (27.0-31.2); Mean Corpuscular Volume 87.1 fl (80-94); Mean Platelet Volume 9.7 fl (7.4-10.4); Monocytes # 0.8 K/mm3 (0.1-1.0); Monocytes % 6.5 % (1.7-9.3); Neutrophils # 6.6 K/mm3 (1.8-7.8); Neutrophils % 56.2 % (37.0-80.0); Platelet Count 136 K/mm3 (142-424); Red Blood Count 3.84 M/mm3 (4.60-6.20); Red Cell Distribution Width 15.4 % (11.5-17.5); White Blood Count 11.8 K/mm3 (4.8-10.8)
[2023-10-20 22:44] LABS: Chloride 95 mmol/L (98-107); Sodium 140 mmol/L (136-145)
[2023-10-20 22:47] LABS: Alanine Aminotransferase 21 U/L (12-78); Albumin Level 4.3 g/dl (3.5-5.0); Albumin/Globulin Ratio 1.7 (1.1-1.8); Alkaline Phosphatase 88 U/L (38-126); Anion Gap 15.5 mEq/L (5-15); Aspartate Amino Transferase 33 U/L (17-59); Bilirubin,Total 0.8 mg/dl (0.2-1.3); Blood Urea Nitrogen 31 mg/dl (9-20); Calcium 8.4 mg/dl (8.4-10.2); Carbon Dioxide 32 mmol/L (22.0-30.0); Creatinine Clearance Estimated 16 mL/min (50-200); Estimated Glomerular Filt Rate 21 ml/min (>60); GFR (African American) 25 ML/MIN (>60); Globulin 2.6 g/dL (1.3-3.2); Glucose 131 mg/dl (74-100); Total Protein,Serum 6.9 g/dl (6.3-8.2)
[2023-10-20 22:53] LABS: Potassium 2.5 mmoL/L (3.5-5.1)
--- NOTE | 2023-10-20 22:53 | PC.NURSE ---
notified MD Lozano of critical lab value k+2.5.
[2023-10-20] MEDS: RINGERS SOLUTION,LACTATED 500 ML 250 ML IV (23:22)
[2023-10-20] MEDS: KCl 20mEq/100ml 100 ML 50 MEQ IV (23:23)
[2023-10-20] MEDS: POTASSIUM CHLORIDE 20MEQ TAB 40 MEQ PO (23:23)
[2023-10-21] VITALS (18 sets, daily range): BP systolic 106–134; BP diastolic 61–85; PULSE 70–88; RESP 15–22; TEMP 36.6–36.8; O2SAT 92–97; BMI 21.9
--- NOTE | 2023-10-21 00:50 | PC.NURSE ---
Notified house senior linux administrator of need for bed assignment. Admission for hypokalemia and TIO.
--- NOTE | 2023-10-21 00:51 | EXP.HP ---
History of Present Illness *Admission Date: 10/21/23 *Reason for visit:: Constipation *History of present illness: This is a 88-year-old male with PMHx of atrial fibrillation on anticoagulation, COPD not on home oxygen, CHF status post pacemaker placement, CAD, with who presents emergency department for evaluation of constipation. Patient has had a bowel movement in 3 days. He is intermittently passing flatus. Constipation is refractory to multiple yheb-gdj-xpworqz interventions at home. No other acute complaints at this time. Of note he is currently being managed for his heart failure where they are adjusting his diuretic regimen on an outpatient basis. Patient is still voiding appropriately however does have some difficulty straining. Admitted for treatment and management. [facility] Disclaimer: The information contained in this section may have been updated after the patient was seen, as this information can be updated by other users. Medical History Arrhythmia Atrial fibrillation Atypical angina Bilateral lower extremity edema CAD (coronary artery disease) Cardiomyopathy Dyspnea Elevated troponin Fractured atrial pacemaker lead wire HFrEF (heart failure with reduced ejection fraction) History of cardioversion History of pacemaker Hyperlipidemia Hypokalemia Mitral valve insufficiency NSTEMI (non-ST elevated myocardial infarction) PAC (premature atrial contraction) Presence of combination internal cardiac defibrillator (ICD) and pacemaker Pulmonary HTN PVC (premature ventricular contraction) Shortness of Breath Systolic heart failure Trigeminy Surgical History Hx of appendectomy Social History (Updated 10/21/23 @ 01:51 by Alejandra Saenz RN) Smoking Status: Current every day smoker tobacco type: cigarettes packs per day: 1 alcohol intake: never substance use type: denies use current occupational status: retired Travel in the last 8 weeks: Inside the [place] household members: spouse housing: house current occupational exposures/hazards: No caffeine: No Review of Systems Review of Systems Review of systems:: pertinent systems reviewed and negative unless documented below Meds Home Medications and Allergies Home Medications Medication Instructions Recorded Confirmed Type rosuvastatin 40 mg tablet (Crestor) 40 mg PO DAILY Cholesterol 07/22/23 10/21/23 History apixaban 5 mg tablet (Eliquis) 2.5 mg PO BID #60 tabs 07/24/23 10/21/23 Rx amiodarone 400 mg tablet 200 mg PO BID #60 tabs 07/29/23 10/21/23 Rx sacubitril 24 mg-valsartan 26 mg 1 tab PO BID #60 tabs 08/01/23 10/21/23 Rx tablet (Entresto) metoprolol succinate 25 mg 25 mg PO HS 08/19/23 10/21/23 History tablet,extended release 24 hr pantoprazole 40 mg tablet,delayed 40 mg PO DAILY #30 tabs 09/16/23 10/21/23 Rx release dapagliflozin propanediol 10 mg 10 mg PO DAILY 10/21/23 10/21/23 History tablet (Farxiga) furosemide 80 mg tablet 40 mg PO DAILYP PRN Edema 10/21/23 10/21/23 History New Prescriptions to Start Prescriptions: Allergies Allergy/AdvReac Type Severity Reaction Status Date / Time No Known Allergies Allergy Verified 09/16/23 10:10 Exam Data for Last 24 hours Vital signs and Labs for Last 24 Hours: Temp Pulse Resp BP Pulse Ox 98.3 F 72 16 111/83 97 10/20/23 21:31 10/20/23 21:31 10/20/23 21:31 10/20/23 21:31 10/20/23 21:31 Laboratory Results - last 24 hr 10/20/23 22:30: WBC 11.8 H, RBC 3.84 L, Hgb 11.0 L, Hct 33.5 L, MCV 87.1, MCH 28.6, MCHC 32.9, RDW 15.4, Plt Count 136 L, MPV 9.7, Neut % (Auto) 56.2, Lymph % (Auto) 35.8, [place] % (Auto) 6.5, Eos % (Auto) 0.9, Baso % (Auto) 0.5, Neut # (Auto) 6.6, Lymph # (Auto) 4.2, [place] # (Auto) 0.8, Eos # (Auto) 0.1, Baso # (Auto) 0.1, Sodium 140, Potassium 2.5 L*, Chloride 95 L, Carbon Dioxide 32 H, Anion Gap 15.5 H, BUN 31 H, Creatinine 2.90 H, Estimated Creat Clear 16, Estimated GFR 21 L, Est GFR ( Amer) 25 L, Glucose 131 H, Calcium 8.4, Total Bilirubin 0.8, AST 33, ALT 21, Alkaline Phosphatase 88, Total Protein 6.9, Albumin 4.3, Globulin 2.6, Albumin/Globulin Ratio 1.7 I & O for Last 24 hours: Intake & Output 10/18/23 10/19/23 10/20/23 10/21/23 23:59 23:59 23:59 23:59 Weight 60.328 kg Constitutional Constitutional: mild distress and cooperative *Routine HEENT Exam Head: Present normocephalic and atraumatic Eye: Present EOMI, PERRL and normal accommodation ENT: Present mucous membranes dry *Routine Neck Exam Neck: Present supple, full ROM and trachea midline *Routine Respiratory Exam Respiratory: Present normal respiratory effort, able to speak in complete sentences and symmetric chest movement *Routine Cardiovascular Exam Cardiovascular: Present RRR, Normal S1 and Normal S2 *Routine Abdominal Exam Abdominal: Present soft and normoactive bowel sounds; Absent organomegaly *Routine Rectal Exam Rectal:: deferred *Routine Genitalia Exam Genitalia:: deferred *Routine Extremities Exam Extremities: Present full ROM and pulses intact; Absent cyanosis, clubbing or edema *Routine Skin Exam Skin: Present intact, dry and warm *Routine Neurological Exam Neurological: Present alert, oriented X3, normal reflexes, moving all extremities and normal speech Routine Psychiatric Exam Psychiatric: Present normal thought process, cooperative and good judgment H&P: Result Imaging and Cardiology EKG: Status: image reviewed by me and Preliminary report CT scan - abdomen: Status: image reviewed by me, Preliminary report and final report Assessment and Plan *Assessment and plan (1) TIO (acute kidney injury): Status: Acute Category: Medical Code(s): N17.9 - Acute kidney failure, unspecified (2) Acute hypokalemia: Status: Acute Category: Medical Code(s): E87.6 - Hypokalemia (3) Constipated: Status: Acute Qualifiers: Constipation type: unspecified constipation type Qualified Code(s): K59.00 - Constipation, unspecified Category: Medical Code(s): K59.00 - Constipation, unspecified (4) HFrEF (heart failure with reduced ejection fraction): Status: Acute Category: Medical Code(s): I50.20 - Unspecified systolic (congestive) heart failure (5) Tobacco dependence: Status: Acute Category: Medical Code(s): F17.200 - Nicotine dependence, unspecified, uncomplicated Plan 88-year-old male with PMHx of atrial fibrillation on anticoagulation, COPD not on home oxygen, CHF status post pacemaker placement, CAD, with who presents emergency department for evaluation of constipation. Patient has had a bowel movement in [address] imaging reviewed, shows small volume ascites but no obvious bowel obstruction or other significant pathology. He has no significant stool burden. labs are obatained and there are significant for TIO and critical hypokalemia. Discussion made with ER provider. Agreed for admission. plan as follow: TIO on CKD: Likely secondary to dehydration, poor intake: Admit for med surg cardiac telemetry replace electrolytes per protocols monitor for other electrolytes imbalances Creatinine elevated to 2.8, baseline appears to be 1.3-1.6 repeat labs with BMP this afternoon and CMP in the morning -Constipated:May be secondary to dehydration ER enema given. no significant stool burden CT of abdomen reviewed. no obstruction bowel regimen with docusate twice daily and MiraLAX 3 times a day. - Hx of heart failure with reduced ejection fraction -A-fib -CAD - Pacemaker in situ reviewed echo from June showing EF 10 to 15%. Hold on Entresto given TIO. Caution with fluids. This is likely culprit in patient's dyspnea. Continue amiodarone, Eliquis, statin Continue Jardiance daily COPD: Initiate DuoNebs every 6 hours. Initiate Trelegy 100 inhaler. Tobacco dependance: nicotine patch. Lovenox 40 mg daily Full code Cardiac diet Rounded on patient after nurse practitioner. Personally examined and interviewed patient. Agree with exam findings and care plan as documented.
--- NOTE | 2023-10-21 01:12 | INFXCTL.NOTE ---
Nurse to nurse report given for admission to room 212.
--- NOTE | 2023-10-21 01:23 | PC.NURSE ---
PT ARRIVED TO FLOOR AT THIS TIME
[2023-10-21] MEDS: KCl 20mEq/100ml 100 ML 50 MEQ IV (01:31)
[2023-10-21] MEDS: DOCUSATE SODIUM 100 MG CAPSULE PO ×2 (01:31→08:29)
[2023-10-21] MEDS: 0.9 % SODIUM CHLORIDE 1000ML 1,000 ML 50 ML IV (01:31)
--- NOTE | 2023-10-21 01:53 | PC.NURSE ---
Unable to do med rec due to pt unable to recall medications, Pt states he will have son bring them tomorrow
--- NOTE | 2023-10-21 03:30 | PC.NURSE ---
Pt is alert and oriented x4 and is tolerating RA well. Pt denies pain and discomfort.
[2023-10-21 06:58] LABS: Basophils % 0.2 % (0.1-2.0); Eosinophils # 0.1 K/mm3 (0.0-0.4); Eosinophils % 0.6 % (0.1-12.0); Hematocrit 33.1 % (42.0-52.0); Hemoglobin 10.7 g/dL (14.1-18.0); Lymphocytes # 3.4 K/mm3 (0.7-4.5); Lymphocytes % 31.6 % (10-50); Mean Corpuscular HGB Conc 32.4 g/dL (31.8-35.4); Mean Corpuscular Volume 89.5 fl (80-94); Mean Platelet Volume 9.8 fl (7.4-10.4); Monocytes # 0.7 K/mm3 (0.1-1.0); Neutrophils # 6.4 K/mm3 (1.8-7.8); Neutrophils % 60.7 % (37.0-80.0); Platelet Count 125 K/mm3 (142-424); Red Cell Distribution Width 15.6 % (11.5-17.5); White Blood Count 10.6 K/mm3 (4.8-10.8)
[2023-10-21 07:07] LABS: Chloride 99 mmol/L (98-107)
[2023-10-21 07:08] LABS: Potassium 3.1 mmoL/L (3.5-5.1); Sodium 140 mmol/L (136-145)
[2023-10-21 07:10] LABS: Alanine Aminotransferase 21 U/L (12-78); Anion Gap 14.1 mEq/L (5-15); Aspartate Amino Transferase 38 U/L (17-59); Blood Urea Nitrogen 30 mg/dl (9-20); Carbon Dioxide 30 mmol/L (22.0-30.0); Creatinine Clearance Estimated 17 mL/min (50-200); Estimated Glomerular Filt Rate 22 ml/min (>60); GFR (African American) 26 ML/MIN (>60)
[2023-10-21 07:11] LABS: Albumin Level 3.8 g/dl (3.5-5.0); Albumin/Globulin Ratio 1.6 (1.1-1.8); Alkaline Phosphatase 85 U/L (38-126); Bilirubin,Total 0.8 mg/dl (0.2-1.3); Calcium 8.2 mg/dl (8.4-10.2); Globulin 2.4 g/dL (1.3-3.2); Glucose 105 mg/dl (74-100); Magnesium 1.9 mg/dl (1.6-2.3); Total Protein,Serum 6.2 g/dl (6.3-8.2)
[2023-10-21] MEDS: ENOXAPARIN 30MG/0.3ML SYRINGE 30 MG SQ (08:29)
[2023-10-21] MEDS: PANTOPRAZOLE 40MG TABLET 40 MG PO (08:29)
[2023-10-21] MEDS: POLYETHYLENE GLYCOL 3350 17 GM PACKET PO ×2 (10:35→13:23)
--- NOTE | 2023-10-21 11:22 | HMH.PHAINT1 ---
Pharmacy Intervention Comments: Verified home med list with patient and family at bedside, Rx bottles that family brought in, and external pharmacy list.
[2023-10-21] MEDS: *PAT OWN MED* DAPAGLIFLOZIN PROPANEDIOL 10 MG TABLET PO (13:26)
[2023-10-21] MEDS: IPRATROPIUM/ALBUTEROL 3 ML NEB IH ×2 (17:34→22:57)
[2023-10-21 18:49] LABS: Chloride 98 mmol/L (98-107); Sodium 140 mmol/L (136-145)
[2023-10-21 18:52] LABS: Blood Urea Nitrogen 30 mg/dl (9-20); Creatinine Clearance Estimated 15 mL/min (50-200); Estimated Glomerular Filt Rate 19 ml/min (>60); GFR (African American) 23 ML/MIN (>60)
[2023-10-21 18:53] LABS: Calcium 8.5 mg/dl (8.4-10.2); Carbon Dioxide 30 mmol/L (22.0-30.0); Glucose 138 mg/dl (74-100)
--- NOTE | 2023-10-21 19:07 | PC.NURSE ---
patient is A&Ox4 and vss. Patient has no c/o pain
[2023-10-21] MEDS: POTASSIUM CHLORIDE 20MEQ TAB 40 MEQ PO (20:07)
[2023-10-21] MEDS: AMIODARONE 400 MG 200 EACH PO (20:07)
[2023-10-21] MEDS: ROSUVASTATIN 40 MG 40 EACH PO (20:08)
[2023-10-21] MEDS: METOPROLOL SUCCINATE 25 MG PO (20:08)
[2023-10-22] VITALS (11 sets, daily range): BP systolic 114–131; BP diastolic 62–77; PULSE 77–91; RESP 16–19; TEMP 36.4–36.7; O2SAT 94–98; BMI 23.4
[2023-10-22] MEDS: 0.9 % SODIUM CHLORIDE 1000ML 1,000 ML 50 ML IV (01:59)
[2023-10-22 02:08] LABS: Microscopic, Urine URINE MICROSCOPIC (MICROSCOPIC)
[2023-10-22 02:48] LABS: Appearance,Urine CLEAR (Clear); Blood, Urine 2+ (Negative); Color,Urine YELLOW (Yellow); Glucose,Urine (UA) 3+ (Negative); Ketones,Urine Negative (Negative); Leukocyte Esterase,Urine Negative (Negative); Nitrate,Urine Negative (Negative); Protein,Urine 2+ (Negative); Specific Gravity, Urine 1.025 (1.005-1.030); Urobilinogen,Urine 0.2 EU/dl (0.2)
[2023-10-22 02:49] LABS: Bilirubin,Urine Negative (Negative)
[2023-10-22 02:50] LABS: Amorphous Sediment,Urine 1+ /lpf; Bacteria,Urine 2+ /lpf
--- NOTE | 2023-10-22 05:24 | PC.NURSE ---
Patient has had a good shift tonight. Has not been able to rest much maybe a couple times. The patient was complaining of some urinary symptoms such as increase in frequency so [employer] was notified and and a urine sample was obtained, see results. Patient is on RA and is AxO x4. Family was visiting at bedside earlier in the shift. Patient did have some bouts of SOA earlier in the shift but Respiratory did a breathing treatment and the patient has not companied of it further. no other issues have been noted
[2023-10-22] MEDS: IPRATROPIUM/ALBUTEROL 3 ML NEB IH ×3 (06:06→18:24)
[2023-10-22 06:54] LABS: Basophils % 0.2 % (0.1-2.0); Hematocrit 32.7 % (42.0-52.0); Hemoglobin 10.7 g/dL (14.1-18.0); Lymphocytes # 3.5 K/mm3 (0.7-4.5); Mean Corpuscular HGB Conc 32.8 g/dL (31.8-35.4); Mean Corpuscular Hemoglobin 29.3 pg (27.0-31.2); Mean Corpuscular Volume 89.4 fl (80-94); Mean Platelet Volume 10.2 fl (7.4-10.4); Monocytes # 0.7 K/mm3 (0.1-1.0); Monocytes % 6.3 % (1.7-9.3); Neutrophils # 7.3 K/mm3 (1.8-7.8); Neutrophils % 63.4 % (37.0-80.0); Platelet Count 125 K/mm3 (142-424); Red Blood Count 3.66 M/mm3 (4.60-6.20); Red Cell Distribution Width 15.7 % (11.5-17.5); White Blood Count 11.5 K/mm3 (4.8-10.8)
[2023-10-22 07:06] LABS: Alanine Aminotransferase 78 U/L (12-78); Albumin Level 3.9 g/dl (3.5-5.0); Albumin/Globulin Ratio 1.6 (1.1-1.8); Alkaline Phosphatase 81 U/L (38-126); Anion Gap 14.3 mEq/L (5-15); Aspartate Amino Transferase 122 U/L (17-59); Bilirubin,Total 1.2 mg/dl (0.2-1.3); Blood Urea Nitrogen 31 mg/dl (9-20); Calcium 8.4 mg/dl (8.4-10.2); Carbon Dioxide 26 mmol/L (22.0-30.0); Chloride 100 mmol/L (98-107); Creatinine Clearance Estimated 16 mL/min (50-200); Estimated Glomerular Filt Rate 19 ml/min (>60); GFR (African American) 23 ML/MIN (>60); Globulin 2.5 g/dL (1.3-3.2); Glucose 174 mg/dl (74-100); Magnesium 2.1 mg/dl (1.6-2.3); Potassium 3.3 mmoL/L (3.5-5.1); Sodium 137 mmol/L (136-145); Total Protein,Serum 6.4 g/dl (6.3-8.2)
[2023-10-22] MEDS: DOCUSATE SODIUM 100 MG CAPSULE PO (08:54)
[2023-10-22] MEDS: *PAT OWN MED* DAPAGLIFLOZIN PROPANEDIOL 10 MG TABLET PO (08:54)
[2023-10-22] MEDS: AMIODARONE 400 MG 200 EACH PO ×2 (08:54→20:14)
[2023-10-22] MEDS: ENOXAPARIN 30MG/0.3ML SYRINGE 30 MG SQ (08:55)
[2023-10-22] MEDS: *PAT OWN MED* PANTOPRAZOLE 40MG TABLET 40 MG PO (08:55)
--- NOTE | 2023-10-22 09:55 | HMH.OTEV ---
OT Inpatient Evaluation Rehab OT IP Evaluation Start: 10/22/23 08:05 Freq: ONCE Status: Active Protocol: Document 10/22/23 09:52 RODNIKKI (Rec: 10/22/23 09:55 KORI [id number]) Rehab OT IP Assessment Subjective History This is a 88-year-old male with PMHx of atrial fibrillation on anticoagulation, COPD not on home oxygen, CHF status post pacemaker placement, CAD, with who presents emergency department for evaluation of constipation. Patient has had a bowel movement in 3 days. He is intermittently passing flatus. Constipation is refractory to multiple over- the-counter interventions at home. No other acute complaints at this time. Of note he is currently being managed for his heart failure where they are adjusting his diuretic regimen on an outpatient basis. Patient is still voiding appropriately however does have some difficulty straining. Admitted for treatment and management. I just feel weak. Patient lives at home with . Independent with ADLs and fx'l mobility prior to admission. Subjective Analysis Patient's ability to complete bed mobility, transfers, ADLs and overall endurance. Patient completed all tasks with SBA for safety. Patient ambulated within environment >50ft. Patient stated, I need to rest. Left Patient sitting upright in chair with needs met at end of session. Objective Patient Orientation Person,Name,Age,Birthday,Year Right Upper Extremity Gross ROM WFL Left Upper Extremity Gross ROM WFL Bed Mobility bed mobility - supine/sit Assist Level Supervision/Stand by Transfer Training Sit/Stand/Pivot Transfer Assist Level Supervision/Stand by Chair Transfer Ability Supervision/Stand by Chair Transfer Technique Sit to/from Ambulatory Chair Transfer Assistive Devices None Upper Body Dressing Ability Independent Rehab OT IP prob,goals,plan Problems Date of Evaluation: 10/22/23 Rehab Potential Rehab Potential Innapropriate for Skilled Therapy Discharge Plan OT Discharge Plan Patient to return home after medical d/c. Recommend services. Eval Complexity Eval Charge Codes 92482 - Low Complexity PHYSICIAN CERTIFICATION: I certify the specified therapy services for Noel Buck are required, authorized, and reviewed every 30 days.
--- NOTE | 2023-10-22 10:03 | HMH.PTEV ---
Physical Therapy Evaluation Rehab PT IP Evaluation Start: 10/22/23 08:05 Freq: ONCE Status: Active Protocol: Document 10/22/23 09:59 VANDANA (Rec: 10/22/23 10:03 VANDANA [id number]) Subjective/History History History This is a 88-year-old male with PMHx of atrial fibrillation on anticoagulation, COPD not on home oxygen, CHF status post pacemaker placement, CAD, with who presents emergency department for evaluation of constipation. Patient has had a bowel movement in 3 days. He is intermittently passing flatus. Constipation is refractory to multiple over- the-counter interventions at home. No other acute complaints at this time. Of note he is currently being managed for his heart failure where they are adjusting his diuretic regimen on an outpatient basis. Patient is still voiding appropriately however does have some difficulty straining. Admitted for treatment and management. I just feel weak. Patient lives at home with . Independent with ADLs and fx'l mobility prior to admission. Subjective Subjective I just feel weak and short of breath. New diagnosis of cancer in past 12 No months? Rehab PT IP Eval Objective Appearance Patient Behavior Appropriate,Cooperative Patient Orientation Person,Place,Birthday Difficulty following instructions none Speech Pattern Clear,Appropriate Ambulation Patient Able to Ambulate Yes Ambulation Observation IP General Gait Pattern Observation No Deviations/Normal Ambulation Distance (feet) 100 Ambulation Assistive Device None Ambulation Ability Supervision/Stand by Balance Ability to Arise Able, uses arms to help Sitting Balance Steady, safe Standing Balance Narrow stance w/o support Dynamic Sitting Balance Ability Normal Dynamic Standing Balance Ability Normal Transfers Bed Transfer Ability Independent Sit to Stand Bed Transfer Ability Supervision/Stand by ROM All Extremities PT ROM Status WFL MMT All Extremities PT MMT WFL Rehab PT IP prob,goals,plan Problems Date of Evaluation: 10/22/23 PT IP Problems Bed Mobility,Transfers,Gait, Balance,Self care,Safety Rehab Potential Rehab Potential Good Discharge Plan PT Discharge Plan Given patient's current functional mobility, PT suggest that patient is good to DC home with HHPT once found medically stable by . [place] Complexity Eval Charge Codes 39827 - High Complexity PHYSICIAN CERTIFICATION: I certify the specified therapy services for Noel Buck are required, authorized, and reviewed every 30 days.
--- NOTE | 2023-10-22 10:29 | EXP.CARD.CON ---
History of Present Illness History of Present Illness Consult date: 10/22/23 Requesting physician: Gino Strange Chief complaint: Constipation History of present illness: This is a 88-year-old male with PMHx of atrial fibrillation on Eliquis, HFrEF/NICM s/p [place] [employer]-D, ICD atrial lead fracture, severe MR, history of PE 2020, COPD with ongoing tobacco use and chronic kidney disease stage III, presented to emergency department for evaluation of constipation. Patient has had no bowel movement in 3 days. He is intermittently passing flatus. Constipation is refractory to multiple merl-ews-hwpavyn interventions at home. No other acute complaints at this time. Of note he is currently being managed for his heart failure where they are adjusting his diuretic regimen on an outpatient basis. Patient is still voiding appropriately however does have some difficulty straining. Admitted for treatment and management. Is also found to have an TIO and critical hypokalemia upon admission. Cardiology was asked to evaluate for management of heart failure medications. This morning patient denies any chest pain. Reports shortness of air with exertion. Patient is followed by advanced heart failure clinic. [facility] Disclaimer: The information contained in this section may have been updated after the patient was seen, as this information can be updated by other users. Medical History Arrhythmia Atrial fibrillation Atypical angina Bilateral lower extremity edema CAD (coronary artery disease) Cardiomyopathy Dyspnea Elevated troponin Fractured atrial pacemaker lead wire HFrEF (heart failure with reduced ejection fraction) History of cardioversion History of pacemaker Hyperlipidemia Hypokalemia Mitral valve insufficiency NSTEMI (non-ST elevated myocardial infarction) PAC (premature atrial contraction) Presence of combination internal cardiac defibrillator (ICD) and pacemaker Pulmonary HTN PVC (premature ventricular contraction) Shortness of Breath Systolic heart failure Trigeminy Surgical History Hx of appendectomy Social History (Updated 10/21/23 @ 01:51 by Alejandra Saenz RN) Smoking Status: Current every day smoker tobacco type: cigarettes packs per day: 1 alcohol intake: never substance use type: denies use current occupational status: retired Travel in the last 8 weeks: [place] the [place] household members: spouse housing: house current occupational exposures/hazards: No caffeine: No Review of Systems Constitutional Comments: Generalized weakness *Cardiovascular Cardiovascular: Reports dyspnea *Respiratory Respiratory: Reports dyspnea Exam Data for Last 24 hours Vital signs and Labs for Last 24 Hours: Temp Pulse Resp BP Pulse Ox O2 Del Method 97.8 F 87 16 131/77 97 Room Air 10/22/23 08:00 10/22/23 08:00 10/22/23 08:00 10/22/23 08:00 10/22/23 08:00 10/22/23 08:50 Laboratory Results - last 24 hr 10/21/23 18:30: Sodium 140, Potassium 3.0 L, Chloride 98, Carbon Dioxide 30, Anion Gap 15.0, BUN 30 H, Creatinine 3.10 H, Estimated Creat Clear 15, Estimated GFR 19 L*, Est GFR ( Amer) 23 L, Glucose 138 H D, Calcium 8.5 10/22/23 02:00: Urine Color Yellow, Urine Appearance Clear, Urine pH 6.0, Ur Specific [place] 1.025, Urine Protein 2+, Urine Glucose (UA) 3+, Urine Ketones Negative, Urine Blood 2+, Urine Nitrate Negative, Urine Bilirubin Negative, Urine Urobilinogen 0.2, Ur Leukocyte Esterase Negative, Urine RBC 5-10, Amorphous Sediment 1+, Urine Bacteria 2+ 10/22/23 06:29: WBC 11.5 H, RBC 3.66 L, Hgb 10.7 L, Hct 32.7 L, MCV 89.4, MCH 29.3, MCHC 32.8, RDW 15.7, Plt Count 125 L, MPV 10.2, Neut % (Auto) 63.4, Lymph % (Auto) 30.0, [place] % (Auto) 6.3, Eos % (Auto) 0.0 L, Baso % (Auto) 0.2, Neut # (Auto) 7.3, Lymph # (Auto) 3.5, [place] # (Auto) 0.7, Eos # (Auto) 0.0, Baso # (Auto) 0.0, Sodium 137, Potassium 3.3 L, Chloride 100, Carbon Dioxide 26, Anion Gap 14.3, BUN 31 H, Creatinine 3.10 H, Estimated Creat Clear 16, Estimated GFR 19 L*, Est GFR ( Amer) 23 L, Glucose 174 H D, Calcium 8.4, Magnesium 2.1 D, Total Bilirubin 1.2, AST 122 H D, ALT 78 D, Alkaline Phosphatase 81, Total Protein 6.4, Albumin 3.9, Globulin 2.5, Albumin/Globulin Ratio 1.6 I & O for Last 24 hours: Intake & Output 10/19/23 10/20/23 10/21/23 10/22/23 23:59 23:59 23:59 23:59 Intake Total 390 / 390 535 / 535 Output Total 0 / 0 250 / 250 Balance 390 / 390 285 / 285 Weight 133 lb 139 lb 9.582 oz 149 lb 4 oz Constitutional Constitutional: no acute distress *Routine Respiratory Exam Respiratory: Present wheezes and symmetric chest movement *Routine Cardiovascular Exam Cardiovascular: Present RRR, Normal S1 and Normal S2 *Routine Abdominal Exam Abdominal: Present soft and normoactive bowel sounds; Absent tenderness *Routine Extremities Exam Extremities: Present full ROM and normal capillary refill; Absent edema *Routine Skin Exam Skin: Present intact, dry and warm Detailed Neck Exam: Thyroids Thyroid: Absent bruit Meds Home Medications and Allergies Home Medications Medication Instructions Recorded Confirmed Type rosuvastatin 40 mg tablet (Crestor) 40 mg PO DAILY Cholesterol 07/22/23 10/21/23 History apixaban 5 mg tablet (Eliquis) 2.5 mg PO BID #60 tabs 07/24/23 10/21/23 Rx amiodarone 400 mg tablet 200 mg PO BID #60 tabs 07/29/23 10/21/23 Rx sacubitril 24 mg-valsartan 26 mg 1 tab PO BID #60 tabs 08/01/23 10/21/23 Rx tablet (Entresto) metoprolol succinate 25 mg 25 mg PO HS 08/19/23 10/21/23 History tablet,extended release 24 hr pantoprazole 40 mg tablet,delayed 40 mg PO DAILY #30 tabs 09/16/23 10/21/23 Rx release dapagliflozin propanediol 10 mg 10 mg PO DAILY 10/21/23 10/21/23 History tablet (Farxiga) furosemide 80 mg tablet 40 mg PO DAILYP PRN Edema 10/21/23 10/21/23 History New Prescriptions to Start Prescriptions: Allergies Allergy/AdvReac Type Severity Reaction Status Date / Time No Known Allergies Allergy Verified 09/16/23 10:10 Assessment and Plan *Assessment and plan (1) HFrEF (heart failure with reduced ejection fraction): Status: Acute Category: Medical Code(s): I50.20 - Unspecified systolic (congestive) heart failure (2) Hypokalemia: Status: Acute Category: Medical Code(s): E87.6 - Hypokalemia (3) TIO (acute kidney injury): Status: Acute Category: Medical Code(s): N17.9 - Acute kidney failure, unspecified (4) Fractured atrial pacemaker lead wire: Status: Acute Qualifiers: Encounter type: subsequent encounter Qualified Code(s): T82.110D - Breakdown (mechanical) of cardiac electrode, subsequent encounter Category: Medical Code(s): T82.110A - Breakdown (mechanical) of cardiac electrode, initial encounter (5) Mitral valve disease: Status: Acute Category: Medical Code(s): I05.9 - Rheumatic mitral valve disease, unspecified (6) Atrial fibrillation: Status: Acute Qualifiers: Atrial fibrillation type: persistent (not longstanding) Qualified Code(s): I48.19 - Other persistent atrial fibrillation Category: Medical Code(s): I48.91 - Unspecified atrial fibrillation Plan Chronic HFrEF/NICM s/p [place] NYHA III at baseline Hx of Severe MR Hx of a fractured atrial pacemaker lead wire -Left heart cath 2020 showed mild nonflow limiting disease -Diagnosed 2020 with an EF of 20% -Echo 06/2023 shows an ejection fraction of 10 to 15% -On maximum tolerated therapy from clinic with Toprol and Entresto. In the past has had difficulty increasing doses due to hypotension. Uses Lasix as needed -Patient has been referred to for consideration of a MitraClip which he has declined in the past -Patient did see in 2022 for atrial lead fracture which he declined to repair -Patient's heart failure seems to be at baseline at this time. -Given patient's current TIO Entresto is on hold. Recommend continuing metoprolol succinate 25 mg p.o. daily, Farxiga 10 mg p.o. daily. Consider restarting Entresto and adding Aldactone once creatinine improves. Hx of Paroxysmal atrial fibrillation/VT -Was diagnosed 07/16/2023 -On Eliquis 2.5 mg p.o. twice daily -Continue metoprolol succinate 25 mg p.o. daily History of PE in 2021 -No concern for PE on this admission. Continue Eliquis COPD with ongoing tobacco use -Smoking cessation advised Acute on Chronic kidney disease stage III -Creatinine baseline 2.00 06/2023 -Creatinine reaching 3.10 on this admission -Entresto currently on hold CV summary 10/22/2023: Given patient's current TIO recommend to continue holding Entresto at this time and continue metoprolol succinate 25 mg p.o. daily and Farxiga 10 mg p.o. daily. Once creatinine improves will restart Entresto and consider adding Aldactone prior to discharge. Patient does not appear volume overloaded at this time.
--- NOTE | 2023-10-22 10:52 | SW/DCPLANNER ---
I spoke w/ this patient and his family regarding plans once medically stable for discharge. PT/OT evaluated patient and stated that he could return home w/ home health if needed. Patient does not think he needs home health services at this time. CM will continue to follow up w/ this patient until medically stable for discharge. Discharge date is unknown at this time.
[2023-10-22] MEDS: FLUTICASONE/UMECLIDIN/VILANTER 100/62.5/25MCG INHALER 1 PUFF IH (10:55)
--- NOTE | 2023-10-22 16:43 | PC.NURSE ---
VS stable and patient remained on room air. Lung sounds diminished. IV fluids decreased.
[2023-10-22 18:33] LABS: Anion Gap 13.6 mEq/L (5-15); Blood Urea Nitrogen 36 mg/dl (9-20); Calcium 8.4 mg/dl (8.4-10.2); Carbon Dioxide 28 mmol/L (22.0-30.0); Chloride 98 mmol/L (98-107); Creatinine Clearance Estimated 16 mL/min (50-200); Estimated Glomerular Filt Rate 19 ml/min (>60); GFR (African American) 22 ML/MIN (>60); Glucose 154 mg/dl (74-100); Potassium 3.6 mmoL/L (3.5-5.1); Sodium 136 mmol/L (136-145)
--- NOTE | 2023-10-22 19:51 | EXP.ACUTE.PN ---
Subjective *Date: 10/22/23 *Time: 19:51 Interval history: Patient stable this morning. States he feels no better. On room air. Labs reviewed with persistent TIO. Creatinine up to 3.1 which is stable from yesterday afternoon. Well above baseline of 1.6. Cardiology evaluating patient today. Tolerating p.o. fluids, poor p.o. nutrition intake. Medical Exam Vital signs and Labs for Last 24 Hours: Vital Signs Temp Pulse Pulse Resp BP Pulse Ox O2 Del Method 10/22/23 18:34 Room Air 10/22/23 18:25 80 10/22/23 18:25 79 10/22/23 16:53 Room Air 10/22/23 16:00 80 10/22/23 15:50 98 F 80 17 114/62 94 L Room Air 10/22/23 14:53 Room Air 10/22/23 13:00 Room Air 10/22/23 12:00 90 10/22/23 12:00 98.1 F 83 17 121/65 97 Room Air 10/22/23 11:00 Room Air 10/22/23 10:56 87 10/22/23 10:56 84 10/22/23 08:00 80 10/22/23 08:50 Room Air 10/22/23 08:50 Room Air 10/22/23 08:00 97.8 F 87 16 131/77 97 Room Air 10/22/23 06:53 Room Air 10/22/23 06:07 77 10/22/23 06:07 82 10/22/23 05:00 Room Air 10/22/23 04:00 97.6 F 87 18 119/70 98 Room Air 10/22/23 04:00 78 10/22/23 03:00 Room Air 10/22/23 00:00 89 10/21/23 20:00 88 10/22/23 01:00 Room Air 10/21/23 23:00 Room Air 10/22/23 00:00 98.1 F 87 19 121/72 94 L 10/21/23 22:58 80 10/21/23 22:57 79 10/21/23 21:00 Room Air 10/21/23 20:00 Room Air 10/21/23 20:00 98.2 F 85 20 134/85 92 L Room Air Intake and Output 10/22/23 10/22/2323 07:59 15:59 23:59 Intake Total 535 / 765 230 / 765 Output Total 250 / 250 Balance -250 / 515 535 / 515 230 / 515 Intake: Intake, Oral Amount 230 / 230 Intake, Total IV Amount 535 / 535 0.9 % Sodium Chloride 1000ML 1, 535 / 535 000 ml @ 50 mls/hr IV .Q20H [facility] Rx#:[id number] Output: Output, Urine Amount 250 / 250 Other: Number of Unmeasured Voids 0 Weight 67.699 kg Patient Weight 10/22/23 23:59 Weight 67.699 kg Laboratory Results - last 24 hr 10/22/23 02:00: Urine Color Yellow, Urine Appearance Clear, Urine pH 6.0, Ur Specific [place] 1.025, Urine Protein 2+, Urine Glucose (UA) 3+, Urine Ketones Negative, Urine Blood 2+, Urine Nitrate Negative, Urine Bilirubin Negative, Urine Urobilinogen 0.2, Ur Leukocyte Esterase Negative, Urine RBC 5-10, Amorphous Sediment 1+, Urine Bacteria 2+ 10/22/23 06:29: WBC 11.5 H, RBC 3.66 L, Hgb 10.7 L, Hct 32.7 L, MCV 89.4, MCH 29.3, MCHC 32.8, RDW 15.7, Plt Count 125 L, MPV 10.2, Neut % (Auto) 63.4, Lymph % (Auto) 30.0, [place] % (Auto) 6.3, Eos % (Auto) 0.0 L, Baso % (Auto) 0.2, Neut # (Auto) 7.3, Lymph # (Auto) 3.5, [place] # (Auto) 0.7, Eos # (Auto) 0.0, Baso # (Auto) 0.0, Sodium 137, Potassium 3.3 L, Chloride 100, Carbon Dioxide 26, Anion Gap 14.3, BUN 31 H, Creatinine 3.10 H, Estimated Creat Clear 16, Estimated GFR 19 L*, Est GFR ( Amer) 23 L, Glucose 174 H D, Calcium 8.4, Magnesium 2.1 D, Total Bilirubin 1.2, AST 122 H D, ALT 78 D, Alkaline Phosphatase 81, Total Protein 6.4, Albumin 3.9, Globulin 2.5, Albumin/Globulin Ratio 1.6 10/22/23 18:00: Sodium 136, Potassium 3.6, Chloride 98, Carbon Dioxide 28, Anion Gap 13.6, BUN 36 H, Creatinine 3.20 H, Estimated Creat Clear 16, Estimated GFR 19 L*, Est GFR ( Amer) 22 L, Glucose 154 H, Calcium 8.4 I & O for Labs for Last 24 Hours: Intake & Output 10/19/23 10/20/23 10/21/23 10/22/23 23:59 23:59 23:59 23:59 Intake Total 390 / 390 765 / 765 Output Total 0 / 0 250 / 250 Balance 390 / 390 515 / 515 Weight 60.328 kg 63.321 kg 67.699 kg Constitutional: Present no acute distress, average body habitus and chronically ill appearing Head: Present atraumatic ENT: Present normal exam Respiratory: Present normal respiratory effort; Absent accessory muscle use, rhonchi, wheezes or crackles Cardiac: Present Reg Rate and Rhythm and Systolic Murmur GI: Present soft and normal bowel sounds; Absent distention or tenderness Extremities: Present normal inspection and full ROM Skin: Present intact; Absent erythema Neuro: Present Grossly Intact, alert, awake and moves all extremities Assessment and Plan *Assessment and plan (1) TIO (acute kidney injury): Status: Acute Category: Medical Code(s): N17.9 - Acute kidney failure, unspecified (2) Acute hypokalemia: Status: Acute Category: Medical Code(s): E87.6 - Hypokalemia (3) Constipated: Status: Acute Qualifiers: Constipation type: unspecified constipation type Qualified Code(s): K59.00 - Constipation, unspecified Category: Medical Code(s): K59.00 - Constipation, unspecified (4) HFrEF (heart failure with reduced ejection fraction): Status: Acute Category: Medical Code(s): I50.20 - Unspecified systolic (congestive) heart failure (5) Tobacco dependence: Status: Acute Category: Medical Code(s): F17.200 - Nicotine dependence, unspecified, uncomplicated Plan 88-year-old male with PMHx of atrial fibrillation on anticoagulation, COPD not on home oxygen, CHF status post pacemaker placement, CAD, with who presents emergency department for evaluation of constipation. Patient has had a bowel movement in [address] imaging reviewed, shows small volume ascites but no obvious bowel obstruction or other significant pathology. He has no significant stool burden. labs are obatained and there are significant for TIO and critical hypokalemia. Discussion made with ER provider. Agreed for admission. No significant change this morning. Kidney function still elevated. Continues to require inpatient management. Plan as follow: TIO on CKD: Likely secondary to dehydration, poor intake: Continue to hold Entresto cardiology consulted and assisting with care. Discussed case. Will consider resuming Entresto and Aldactone when kidney function improves. Patient does not appear volume overloaded at this time, caution with fluid resuscitation. Continue to monitor on telemetry. Creatinine elevated at 3.1 this morning. Repeat BMP this afternoon, CMP and magnesium in the morning -Constipated:May be secondary to dehydration Small bowel movement this morning. bowel regimen with docusate twice daily and MiraLAX 3 times a day. De-escalate if having 1-2 soft bowel movements daily. - Hx of heart failure with reduced ejection fraction -A-fib -CAD - Pacemaker in situ reviewed echo from June showing EF 10 to 15%. Hold on Entresto given TIO. Caution with fluids. This is likely culprit in patient's dyspnea. Continue amiodarone, Eliquis, statin Continue Jardiance daily COPD: DuoNebs every 6 hours prn. cont. Trelegy 100 inhaler. Tobacco dependance: nicotine patch. Lovenox 40 mg daily Full code Cardiac diet
[2023-10-22] MEDS: APIXABAN 5MG TABLET 2.5 MG PO (20:15)
[2023-10-22] MEDS: METOPROLOL SUCCINATE 25 MG PO (20:16)
[2023-10-22] MEDS: ROSUVASTATIN 40 MG 40 EACH PO (20:17)
[2023-10-23] VITALS (30 sets, daily range): BP systolic 96–151; BP diastolic 54–101; PULSE 77–94; RESP 16–20; TEMP 36.5–36.8; O2SAT 88–99; BMI 23.1
--- NOTE | 2023-10-23 | IR_ITS ---
APPROVED REPORT Patient Location: Inpatient PROCEDURES Right internal jugular vein access Right heart catheterization INDICATION Systolic congestive heart failure, Cardiogenic shock Informed consent was obtained prior to the procedure. COMPLICATIONS None Estimated Blood Loss: Less than 10 mls TECHNIQUE One percent lidocaine was used to anesthetize the right anterior aspect of the neck. A thermal cutter hand needle was used to identify the right internal jugular vein. Following this a larger cannulation needle was used to cannulate the right internal jugular vein and a wire was passed into the vein. Prior to the 7 [place] sheath being inserted the wire was confirmed under fluoroscopic guidance to be in the inferior vena cava. A 7 [place] sheath was introduced and a [place] catheter was floated using hemodynamic waveforms in the pulmonary artery, right ventricle , and right atrium. Saturations were obtained in the pulmonary artery and the right atrium. At the end of the procedure the patient was transferred to the postop holding area in stable condition for sheath removal. ANGIOGRAPHIC RESULTS Right atrial pressure 35-40 mmHg Pulmonary artery pressure 55/45 mmHg Pulmonary occlusion pressure 40-45 mmHg Right atrial saturation 32% Pulmonary saturation 31% Aortic saturation 97% Hemoglobin 10.7 Cardiac output 2.3 L/min Cardiac index 1.3 IMPRESSION Cardiogenic shock Severe biventricular heart failure PLAN 1. Start milrinone 0.125 mcg/kg/min 2. Restart Entresto 3. IV diuresis 4. Right IJ sheath will be kept in place with anticipated repeat right heart cath in a few days 5. Consider intra-aortic balloon pump if cardiogenic shock is not improved with inotropes and afterload reducing medicines Electronically signed by : Sahil Keller MD 10/23/2023 14:30:56
[2023-10-23] MEDS: IPRATROPIUM/ALBUTEROL 3 ML NEB IH ×5 (00:40→23:05)
[2023-10-23] MEDS: FLUTICASONE/UMECLIDIN/VILANTER 100/62.5/25MCG INHALER 1 PUFF IH (06:47)
[2023-10-23 07:19] LABS: Basophils % 0.3 % (0.1-2.0); Hemoglobin 10.7 g/dL (14.1-18.0); Lymphocytes # 3.8 K/mm3 (0.7-4.5); Lymphocytes % 29.8 % (10-50); Mean Corpuscular HGB Conc 32.4 g/dL (31.8-35.4); Mean Corpuscular Hemoglobin 28.8 pg (27.0-31.2); Mean Platelet Volume 10.8 fl (7.4-10.4); Monocytes % 8.1 % (1.7-9.3); Neutrophils # 7.9 K/mm3 (1.8-7.8); Neutrophils % 61.7 % (37.0-80.0); Platelet Count 120 K/mm3 (142-424); Red Blood Count 3.71 M/mm3 (4.60-6.20); Red Cell Distribution Width 15.8 % (11.5-17.5); White Blood Count 12.8 K/mm3 (4.8-10.8)
[2023-10-23 07:33] LABS: Chloride 98 mmol/L (98-107)
[2023-10-23 07:34] LABS: Potassium 3.3 mmoL/L (3.5-5.1); Sodium 138 mmol/L (136-145)
[2023-10-23 07:36] LABS: Alanine Aminotransferase 142 U/L (12-78); Alkaline Phosphatase 101 U/L (38-126); Anion Gap 15.3 mEq/L (5-15); Aspartate Amino Transferase 230 U/L (17-59); Bilirubin,Total 1.2 mg/dl (0.2-1.3); Blood Urea Nitrogen 41 mg/dl (9-20); Carbon Dioxide 28 mmol/L (22.0-30.0); Creatinine Clearance Estimated 14 mL/min (50-200); Estimated Glomerular Filt Rate 16 ml/min (>60); GFR (African American) 20 ML/MIN (>60)
[2023-10-23 07:37] LABS: Albumin Level 3.9 g/dl (3.5-5.0); Albumin/Globulin Ratio 1.5 (1.1-1.8); Calcium 8.6 mg/dl (8.4-10.2); Globulin 2.6 g/dL (1.3-3.2); Glucose 134 mg/dl (74-100); Magnesium 2.2 mg/dl (1.6-2.3); Total Protein,Serum 6.5 g/dl (6.3-8.2)
--- NOTE | 2023-10-23 07:50 | CA_ITS ---
APPROVED REPORT EXAM: Comprehensive 2D, Doppler, and color-flow Echocardiogram Tile Presser: Shaniqua Monroy RT(R) Ht: 5 ft 7 in Wt: 130lbs BSA: 1.68 BP: 137/77 mmHg Indications: AFIB, COPD, smoker, BALTAZAR, hx rheumatic fever, MR, MAC, AICD, 10-15% on echo 07/22/23, PHTN, HF, HTN. 2D Dimensions LA Volume 77.60 mL LA Volume Index 45.92 mL/m2 (M/F) 16-34 M-Mode Dimensions RVDd 3.33 cm (0.9-2.6) LA Diam 4.05 cm (1.9-4.0) LVDd 6.40 cm (3.5-5.7) LVDs 6.08 cm (3.5-5.7) IVSd 0.93 cm (0.6-1.1) PWd 0.75 cm (0.6-1.1) EF (Teich) 11.00% FS 5.00% EDV (Teich) 208.50 mL ESV (Teich) 185.50 mL LV Diastology E Decel Time 173 (160-240 msec) E/A Ratio 1.0 Mitral Valve MV E Max Neo. 72.0 (40-130 cm/s) MV A Velocity 73.0 (40-130 cm/s) E/A Ratio 0.98 MV PHT 51.0 ms Tricuspid Valve TR P. Velocity 297.00 cm/s RAP Estimate 10.00 mmHg RVSP 45.20 mmHg Left Ventricle The left ventricle is severely dilated. There is severe reduction in LV systolic function. There is normal left ventricular wall thickness. There is severe global hypokinesis present. Grade 2 diastolic dysfunction is present. LVEF is 10%. Right Ventricle The right ventricle is mildly dilated. The right ventricular systolic function is normal. There is a device lead in the right ventricle. Atria The left atrium is severely dilated. The right atrium is moderately dilated. There is no Doppler evidence of interatrial shunt. Aortic Valve The aortic valve is mildly thickened There is no aortic valvular stenosis. No aortic regurgitation is present. Mitral Valve The mitral valve leaflets are mildly thickened. No evidence of mitral valve stenosis. Severe mitral regurgitation. Tricuspid Valve The tricuspid valve leaflets are thin and pliable. Severe tricuspid regurgitation. RVSP is 40-45 mmHg, but may be inaccurate due to severe TR. There is hepatic vein systolic flow reversal, consistent with significant TR. Pulmonic Valve The pulmonary valve is normal in structure. Mild pulmonic regurgitation. Great Vessels The aortic root is normal in size. The ascending aorta is normal in size. The IVC is plethoric. Pericardium There is no pericardial effusion. Other Information Study Quality: Fair Conclusion Severely dilated LV with severe reduction in LV systolic function (LVEF 10%). Grade 2 diastolic dysfunction. Mildly dilated RV. Severe MR. Severe TR. Compared to prior study from 06/2023, the severity of the MR and TR now appear worse. Electronically signed by : Lynne Steen MD 10/23/2023 09:35:22
[2023-10-23] MEDS: *PAT OWN MED* PANTOPRAZOLE 40MG TABLET 40 MG PO (08:45)
[2023-10-23] MEDS: LACTATED RINGERS 1000ML 1,000 ML 125 ML IV (08:46)
[2023-10-23] MEDS: APIXABAN 5MG TABLET 2.5 MG PO ×2 (08:46→20:39)
[2023-10-23] MEDS: AMIODARONE 400 MG 200 EACH PO ×2 (08:46→20:40)
--- NOTE | 2023-10-23 08:52 | XR_ITS ---
FINAL REPORT CLINICAL HISTORY: soa COMPARISON: 07/22/2023 FINDINGS: SINGLE-VIEW CHEST There is mild cardiomegaly. Biventricular pacemaker is identified. The mediastinum is normal. There are bibasilar opacities, particularly in the infrahilar regions bilaterally. There is no pneumothorax. IMPRESSION: Bibasilar atelectasis. Reviewed, Interpreted and Dictated by Olman Madden MD Transcribed by Chantel Easton Authenticated and . [facility]
--- NOTE | 2023-10-23 10:06 | EXP.CARD.PN ---
Subjective Subjective Date: 10/23/23 Time: 08:00 Principal diagnosis: constipation, tio, hypokalemia Interval history: Morning labs reviewed creatinine elevated to 3.6. AST 230 ALT 142. Repeat echocardiogram completed this morning see report below. Chest X-ray pending. Exam Data for Last 24 hours Vital signs and Labs for Last 24 Hours: Temp Pulse Resp BP Pulse Ox O2 Del Method 97.8 F 86 18 115/67 88 L Room Air 10/23/23 08:00 10/23/23 08:00 10/23/23 08:00 10/23/23 08:00 10/23/23 08:00 10/23/23 08:00 Laboratory Results - last 24 hr 10/22/23 18:00: Sodium 136, Potassium 3.6, Chloride 98, Carbon Dioxide 28, Anion Gap 13.6, BUN 36 H, Creatinine 3.20 H, Estimated Creat Clear 16, Estimated GFR 19 L*, Est GFR ( Amer) 22 L, Glucose 154 H, Calcium 8.4 10/23/23 06:51: WBC 12.8 H, RBC 3.71 L, Hgb 10.7 L, Hct 33.0 L, MCV 89.0, MCH 28.8, MCHC 32.4, RDW 15.8, Plt Count 120 L, MPV 10.8 H, Neut % (Auto) 61.7, Lymph % (Auto) 29.8, [place] % (Auto) 8.1, Eos % (Auto) 0.0 L, Baso % (Auto) 0.3, Neut # (Auto) 7.9 H, Lymph # (Auto) 3.8, [place] # (Auto) 1.0, Eos # (Auto) 0.0, Baso # (Auto) 0.0, Sodium 138, Potassium 3.3 L, Chloride 98, Carbon Dioxide 28, Anion Gap 15.3 H, BUN 41 H, Creatinine 3.60 H, Estimated Creat Clear 14, Estimated GFR 16 L*, Est GFR ( Amer) 20 L, Glucose 134 H, Calcium 8.6, Magnesium 2.2, Total Bilirubin 1.2, AST 230 H D, ALT 142 H D, Alkaline Phosphatase 101, Total Protein 6.5, Albumin 3.9, Globulin 2.6, Albumin/Globulin Ratio 1.5 I & O for Last 24 hours: Intake & Output 10/20/23 10/21/23 10/22/23 10/23/23 23:59 23:59 23:59 23:59 Intake Total 390 / 390 765 / 765 Output Total 0 / 0 250 / 250 200 / 200 Balance 390 / 390 515 / 515 -200 / -200 Weight 133 lb 139 lb 9.582 oz 149 lb 4 oz 147 lb 1.6 oz Constitutional Constitutional: no acute distress *Routine Respiratory Exam Respiratory: Present CTA bilaterally and symmetric chest movement *Routine Cardiovascular Exam Cardiovascular: Present RRR, Normal S1 and Normal S2 *Routine Abdominal Exam Abdominal: Present soft and normoactive bowel sounds; Absent tenderness *Routine Extremities Exam Extremities: Present full ROM and normal capillary refill; Absent edema *Routine Skin Exam Skin: Present intact, dry and warm Detailed Neck Exam: Thyroids Thyroid: Absent bruit Progress Note: A&P Assessment and plan (1) TIO (acute kidney injury): Status: Acute (2) Acute hypokalemia: Status: Acute (3) Constipated: Status: Acute (4) HFrEF (heart failure with reduced ejection fraction): Status: Acute (5) Tobacco dependence: Status: Acute Assessment and Plan Assessment and Plan for All Diagnoses:: Chronic HFrEF/NICM s/p [place] NYHA III at baseline Hx of Severe MR Hx of a fractured atrial pacemaker lead wire -Patient has been referred to for consideration of a MitraClip which he has declined in the past -Patient did see in 2022 for atrial lead fracture which he declined to repair -Echo 10/22/2023: Severely dilated LV with severe reduction in LV systolic function EF 10%, grade 2 diastolic dysfunction, mildly dilated RV, severe MR, severe TR. Compared to prior study from 07/16/2023 the severity of the MR and TR now appear worse. -Right heart cath 10/23/2023: Cardiogenic shock noted, severe biventricular heart failure. -Start milrinone and restart Entresto. IV diuretics with Lasix drip, will consider intra-aortic balloon pump if cardiogenic shock does not improve. Strict I&Os Hx of Paroxysmal atrial fibrillation/VT -Was diagnosed 07/16/2023 -On Eliquis 2.5 mg p.o. twice daily -Continue metoprolol succinate 25 mg p.o. daily and amiodarone 200 mg p.o. twice daily History of PE in 2020 -No concern for PE on this admission. Continue Eliquis renal dose. COPD with ongoing tobacco use -Smoking cessation advised Acute on Chronic kidney disease stage III -Creatinine baseline 2.00 06/2023 -Creatinine reaching 3.6 on this admission -Continue to hold nephrotoxic agents. Transaminitis -AST 230, ALT 142 CV summary 10/23/2023: Worsening TIO noted with creatinine up to 3.6. Repeat echocardiogram shows severely reduced LV systolic function with an EF of 10% with worsening MR and TR. Right heart cath shows cardiogenic shock with severe biventricular heart failure. Will start milrinone drip and Lasix drip. Restart Entresto. Move to ICU bed.
[2023-10-23] MEDS: FLUTICASONE PROP 50MCG NASAL SPRAY 16GM 1 SPRAY NS (10:38)
[2023-10-23] MEDS: BELLADONNA ALKALOIDS 60 ML ML PO (13:43)
[2023-10-23] MEDS: LIDOCAINE 1% 10ML MDV 20 ML IJ (14:09)
[2023-10-23] MEDS: diphenhydrAMINE 50MG/ML VIAL 50 MG IV ×2 (14:10→14:58)
[2023-10-23] MEDS: 0.9 % SODIUM CHLORIDE 500 ML 25 ML IV (14:10)
[2023-10-23] MEDS: MIDAZOLAM HCL 1MG/1ML 5ML VIAL 1 MG IV (14:22)
[2023-10-23] MEDS: FENTANYL 100MCG/2ML VIAL 50 MCG IV (14:22)
[2023-10-23] MEDS: MILRINONE LACTATE 20 MG in 0.9 % SODIUM CHLORIDE 80 ML 2.5 MG IV (14:40)
[2023-10-23] MEDS: FUROSEMIDE 100MG/10ML VIAL 80 MG IV (14:40)
[2023-10-23] MEDS: FUROSEMIDE 100 MG in 0.9 % SODIUM CHLORIDE 90 ML 10 MG IV ×2 (14:41→22:58)
[2023-10-23 14:44] LABS: CATHL Arterial O2 SAT 31.5 % (90-100); CATHL Venous O2 SAT 32.4 % (75-80)
--- NOTE | 2023-10-23 14:51 | EXP.ACUTE.PN ---
Subjective *Date: 10/23/23 *Time: 18:41 Interval history: On initial exam this morning, patient still feels short of breath. Complains of fatigue. On room air with saturations in the low 90s. No nausea or vomiting. No chest pain. Taken for right heart cath today. Reexamination after returning to the floor, patient is mildly confused. Redirectable but somewhat agitated. Medical Exam Vital signs and Labs for Last 24 Hours: Vital Signs Temp Pulse Pulse Resp BP Pulse Ox O2 Del Method 10/23/23 12:00 80 10/23/23 08:00 85 10/23/23 12:56 Room Air 10/23/23 11:00 85 10/23/23 11:00 77 10/23/23 11:19 97.7 F 79 18 113/65 93 L Room Air 10/23/23 11:00 Room Air 10/23/23 08:46 Room Air 10/23/23 08:46 Room Air 10/23/23 08:00 97.8 F 86 18 115/67 88 L Room Air 10/23/23 07:00 Room Air 10/23/23 06:47 87 10/23/23 06:47 83 10/23/23 06:33 80 117/74 10/23/23 05:00 Room Air 10/23/23 04:00 84 10/23/23 04:00 98.2 F 84 18 96/59 L 93 L Room Air 10/23/23 03:00 Room Air 10/23/23 01:00 Room Air 10/23/23 00:00 84 10/23/23 00:39 87 10/23/23 00:39 90 10/23/23 00:00 97.9 F 88 18 112/60 94 L Room Air 10/22/23 23:00 Room Air 10/22/23 20:30 86 10/22/23 21:00 Room Air 10/22/23 20:00 Room Air 10/22/23 20:00 97.7 F 91 H 18 116/64 96 Room Air 10/22/23 18:34 Room Air 10/22/23 18:25 80 10/22/23 18:25 79 10/22/23 16:53 Room Air 10/22/23 16:00 80 10/22/23 15:50 98 F 80 17 114/62 94 L Room Air 10/22/23 14:53 Room Air Intake and Output 10/22/23 10/23/23 10/23/23 23:59 07:59 15:59 Intake Total 230 / 765 100 / 100 Output Total 200 / 200 Balance 230 / 515 -200 / -100 100 / -100 Intake: Intake, Oral Amount 230 / 230 Intake, Total IV Amount 100 / 100 Lactated Ringers 1000ML 1,000 100 / 100 ml @ 125 mls/hr IV .Q8H [facility] Rx# :[id number] Output: Output, Urine Amount 200 / 200 Other: Weight 66.723 kg 66.7 kg Patient Weight 10/23/23 23:59 Weight 66.7 kg Laboratory Results - last 24 hr 10/22/23 18:00: Sodium 136, Potassium 3.6, Chloride 98, Carbon Dioxide 28, Anion Gap 13.6, BUN 36 H, Creatinine 3.20 H, Estimated Creat Clear 16, Estimated GFR 19 L*, Est GFR ( Amer) 22 L, Glucose 154 H, Calcium 8.4 10/23/23 06:51: WBC 12.8 H, RBC 3.71 L, Hgb 10.7 L, Hct 33.0 L, MCV 89.0, MCH 28.8, MCHC 32.4, RDW 15.8, Plt Count 120 L, MPV 10.8 H, Neut % (Auto) 61.7, Lymph % (Auto) 29.8, [place] % (Auto) 8.1, Eos % (Auto) 0.0 L, Baso % (Auto) 0.3, Neut # (Auto) 7.9 H, Lymph # (Auto) 3.8, [place] # (Auto) 1.0, Eos # (Auto) 0.0, Baso # (Auto) 0.0, Sodium 138, Potassium 3.3 L, Chloride 98, Carbon Dioxide 28, Anion Gap 15.3 H, BUN 41 H, Creatinine 3.60 H, Estimated Creat Clear 14, Estimated GFR 16 L*, Est GFR ( Amer) 20 L, Glucose 134 H, Calcium 8.6, Magnesium 2.2, Total Bilirubin 1.2, AST 230 H D, ALT 142 H D, Alkaline Phosphatase 101, Total Protein 6.5, Albumin 3.9, Globulin 2.6, Albumin/Globulin Ratio 1.5 10/23/23 14:18: ABG O2 Sat (Measured) 31.5 L, POC VBG O2 Sat ([place]) 32.4 L I & O for Labs for Last 24 Hours: Intake & Output 10/20/23 10/21/23 10/22/23 10/23/23 23:59 23:59 23:59 23:59 Intake Total 390 / 390 765 / 765 100 / 100 Output Total 0 / 0 250 / 250 200 / 200 Balance 390 / 390 515 / 515 -100 / -100 Weight 60.328 kg 63.321 kg 67.699 kg 66.7 kg Constitutional: Present no acute distress, average body habitus and chronically ill appearing Head: Present atraumatic ENT: Present normal exam Comment:: Sheath in right IJ Respiratory: Present normal respiratory effort; Absent accessory muscle use, rhonchi, wheezes or crackles Cardiac: Present Reg Rate and Rhythm and Systolic Murmur GI: Present soft and normal bowel sounds; Absent distention or tenderness Extremities: Present normal inspection and full ROM Skin: Present intact; Absent erythema Neuro: Present Grossly Intact, alert, awake and moves all extremities Assessment and Plan *Assessment and plan (1) HFrEF (heart failure with reduced ejection fraction): Status: Acute Category: Medical Code(s): I50.20 - Unspecified systolic (congestive) heart failure (2) TIO (acute kidney injury): Status: Acute Category: Medical Code(s): N17.9 - Acute kidney failure, unspecified (3) Acute hypokalemia: Status: Acute Category: Medical Code(s): E87.6 - Hypokalemia (4) Constipated: Status: Acute Qualifiers: Constipation type: unspecified constipation type Qualified Code(s): K59.00 - Constipation, unspecified Category: Medical Code(s): K59.00 - Constipation, unspecified (5) Tobacco dependence: Status: Acute Category: Medical Code(s): F17.200 - Nicotine dependence, unspecified, uncomplicated Plan 88-year-old male with PMHx of atrial fibrillation on anticoagulation, COPD not on home oxygen, CHF status post pacemaker placement, CAD, with who presents emergency department for evaluation of constipation. Patient has had a bowel movement in [address] imaging reviewed, shows small volume ascites but no obvious bowel obstruction or other significant pathology. He has no significant stool burden. labs are obatained and there are significant for TIO and critical hypokalemia. Discussion made with ER provider. Agreed for admission. Patient's kidney function worsening today. Discussed case with cardiology, taken for right heart cath. Found to be in worsening heart failure with component of cardiogenic shock. Concerned that elevation in liver enzymes and creatinine are related to hepatic congestion and cardiorenal syndrome. Escalated to ICU for milrinone drip. Continues to require inpatient management. Problems addressed as follows: - AoC HFrEF -A-fib -CAD - Pacemaker in situ Echo obtained 10/22 with severely dilated LV, reduced LV function, EF 10%. Grade 2 diastolic dysfunction. Severe MR and TR. This is worse since echo 3 months ago. Right heart cath performed today with cardiogenic shock noted. Severe biventricular heart failure. Initiated on milrinone 0.125 mcg/kg/min. Resume Entresto for afterload reduction Initiate on Lasix drip If no improvement, will consider intra-aortic balloon pump Strict I's and O's, Collins in place Continue amiodarone, Eliquis, statin Hold Farxiga in the setting of worsening renal failure Acute on Chronic kidney disease stage III -Creatinine baseline 2.00 06/2023 -Creatinine increased to 3.6 today. Repeat CMP, CBC, magnesium ordered for the morning. -Caution with nephrotoxic's Transaminitis -AST 230, ALT 142. Secondary to hepatic congestion. Monitor for improvement with diuresis COPD: DuoNebs every 6 hours prn. cont. Trelegy 100 inhaler. Tobacco dependance: nicotine patch. Smoking cessation advised, patient continues to smoke prior to admission Discussed CODE STATUS today with family, patient is DNR. Cardiac diet
[2023-10-23] MEDS: HEPARIN 1,000 UNITS/500ML NS (CATH LAB) 3000 UNIT IV (14:59)
[2023-10-23] MEDS: LIDOCAINE 1% 5ML PF VIAL 20 ML IJ (14:59)
--- NOTE | 2023-10-23 15:52 | PC.NURSE ---
per report right IJ to be flushed q8hrs. Right IJ flushed at this time.
--- NOTE | 2023-10-23 17:22 | PC.NURSE ---
pt combative at this time, attempting to get out of bed. mittens placed. pt confused.
--- NOTE | 2023-10-23 17:26 | PC.NURSE ---
Dr. Strange at bedside to see patient. RT at bedside for breathing tx, audible wheezing.
[2023-10-23 18:46] LABS: Microscopic, Urine URINE MICROSCOPIC (MICROSCOPIC)
[2023-10-23 18:48] LABS: Appearance,Urine SL CLOUDY (Clear); Bilirubin,Urine Negative (Negative); Blood, Urine 3+ (Negative); Color,Urine YELLOW (Yellow); Glucose,Urine (UA) 2+ (Negative); Ketones,Urine Negative (Negative); Leukocyte Esterase,Urine Negative (Negative); Nitrate,Urine Negative (Negative); Protein,Urine 2+ (Negative); Urobilinogen,Urine 0.2 EU/dl (0.2)
[2023-10-23 19:01] LABS: Bacteria,Urine 2+ /lpf; Squamous Epithelial Cell,Urine Occasional #/hpf (0-5)
[2023-10-23 19:38] LABS: Anion Gap 14.1 mEq/L (5-15); Blood Urea Nitrogen 47 mg/dl (9-20); Calcium 8.4 mg/dl (8.4-10.2); Carbon Dioxide 29 mmol/L (22.0-30.0); Chloride 98 mmol/L (98-107); Creatinine Clearance Estimated 14 mL/min (50-200); Estimated Glomerular Filt Rate 16 ml/min (>60); GFR (African American) 19 ML/MIN (>60); Glucose 135 mg/dl (74-100); Potassium 3.1 mmoL/L (3.5-5.1); Sodium 138 mmol/L (136-145)
[2023-10-23] MEDS: POLYETHYLENE GLYCOL 3350 17 GM PACKET PO (20:39)
[2023-10-23] MEDS: KCl 20mEq/100ml 100 ML 50 MEQ IV ×2 (20:39→22:41)
[2023-10-23] MEDS: METOPROLOL SUCCINATE 25 MG PO (20:40)
[2023-10-23] MEDS: ONDANSETRON 4MG/2ML VIAL 4 MG IV (20:41)
[2023-10-24] VITALS (28 sets, daily range): BP systolic 90–133; BP diastolic 45–76; PULSE 80–94; RESP 12–30; TEMP 36.6–37.2; O2SAT 92–99; BMI 21.9
[2023-10-24] MEDS: KCl 20mEq/100ml 100 ML 50 MEQ IV (00:23)
--- NOTE | 2023-10-24 05:41 | PC.NURSE ---
Shift summary: Pt AOx month and year throughout shift, pleasantly confused, impulsive and restless throughout shift. Pt able to follow commands, but requires multiple prompts. 1:1 sitter at bedside throughout shift to redirect and maintain safety. Mittens removed at beginning of shift to reduce agitation. VSS at this time on 2 L NC. Attempted to wean to 1 L and RA, SpO2 88%. Collins catheter still in place; pt requires reminders to void per catheter. Pt tolerated furosemide gtt @ 10 mg/hr (10 mL/hr) and milrinone @ 0.125 mcg/kg/min (2.5 mL/hr) throughout shift. 3 bags of KCl IV administered for hypokalemia, pt tolerated well. Son at bedside for most of shift.
[2023-10-24] MEDS: IPRATROPIUM/ALBUTEROL 3 ML NEB IH ×4 (06:49→23:16)
[2023-10-24] MEDS: FLUTICASONE/UMECLIDIN/VILANTER 100/62.5/25MCG INHALER 1 PUFF IH (06:49)
[2023-10-24 07:17] LABS: Basophils % 0.1 % (0.1-2.0); Eosinophils % 0.1 % (0.1-12.0); Hematocrit 29.7 % (42.0-52.0); Hemoglobin 9.8 g/dL (14.1-18.0); Lymphocytes # 2.9 K/mm3 (0.7-4.5); Mean Corpuscular HGB Conc 32.9 g/dL (31.8-35.4); Mean Corpuscular Hemoglobin 29.5 pg (27.0-31.2); Mean Corpuscular Volume 89.7 fl (80-94); Mean Platelet Volume 10.3 fl (7.4-10.4); Monocytes # 0.5 K/mm3 (0.1-1.0); Monocytes % 5.1 % (1.7-9.3); Neutrophils # 7.1 K/mm3 (1.8-7.8); Neutrophils % 67.6 % (37.0-80.0); Platelet Count 99 K/mm3 (142-424); Red Blood Count 3.32 M/mm3 (4.60-6.20); Red Cell Distribution Width 15.9 % (11.5-17.5); White Blood Count 10.6 K/mm3 (4.8-10.8)
[2023-10-24 07:26] LABS: Chloride 101 mmol/L (98-107); Potassium 3.3 mmoL/L (3.5-5.1); Sodium 141 mmol/L (136-145)
[2023-10-24 07:28] LABS: Alanine Aminotransferase 165 U/L (12-78); Alkaline Phosphatase 95 U/L (38-126); Aspartate Amino Transferase 229 U/L (17-59); Bilirubin,Total 1.2 mg/dl (0.2-1.3); Blood Urea Nitrogen 53 mg/dl (9-20); Creatinine Clearance Estimated 13 mL/min (50-200); Estimated Glomerular Filt Rate 15 ml/min (>60); GFR (African American) 18 ML/MIN (>60)
[2023-10-24 07:29] LABS: Albumin Level 3.4 g/dl (3.5-5.0); Albumin/Globulin Ratio 1.4 (1.1-1.8); Anion Gap 14.3 mEq/L (5-15); Calcium 8.3 mg/dl (8.4-10.2); Carbon Dioxide 29 mmol/L (22.0-30.0); Globulin 2.5 g/dL (1.3-3.2); Glucose 122 mg/dl (74-100); Total Protein,Serum 5.9 g/dl (6.3-8.2)
[2023-10-24 07:30] LABS: Magnesium 2.1 mg/dl (1.6-2.3)
--- NOTE | 2023-10-24 10:01 | P.PN_ITS ---
Subjective Subjective Date: 10/24/23 Time: 08:00 Principal diagnosis: constipation, tio, hypokalemia Interval history: Patient remains stable this morning. Patient is down to 2 L. Patient remains on milrinone and Lasix drip. Morning labs reviewed and creatinine increased to 3.8. Family is at bedside. Exam Data for Last 24 hours Vital signs and Labs for Last 24 Hours: Temp Pulse Resp BP Pulse Ox O2 Del Method O2 Flow Rate 98.9 F 87 22 123/76 96 Nasal Cannula 2 10/24/23 07:58 10/24/23 09:00 10/24/23 09:00 10/24/23 09:00 10/24/23 09:00 10/24/23 09:00 10/24/23 09:00 Laboratory Results - last 24 hr 10/23/23 14:18: ABG O2 Sat (Measured) 31.5 L, POC VBG O2 Sat (Carey) 32.4 L 10/23/23 19:18: Sodium 138, Potassium 3.1 L, Chloride 98, Carbon Dioxide 29, Anion Gap 14.1, BUN 47 H, Creatinine 3.70 H, Estimated Creat Clear 14, Estimated GFR 16 L*, Est GFR ( Amer) 19 L*, Glucose 135 H, Calcium 8.4 10/23/23 : Urine Color Yellow, Urine Appearance Sl cloudy, Urine pH 6.0, Ur Specific [place] 1.020, Urine Protein 2+, Urine Glucose (UA) 2+, Urine Ketones Negative, Urine Blood 3+, Urine Nitrate Negative, Urine Bilirubin Negative, Urine Urobilinogen 0.2, Ur Leukocyte Esterase Negative, Urine RBC 3-5, Urine WBC 5-10, Ur Squamous Epith Cells Occasional, Urine Bacteria 2+, Fine Granular Casts 3-5 10/24/23 06:19: WBC 10.6, RBC 3.32 L, Hgb 9.8 L, Hct 29.7 L, MCV 89.7, MCH 29.5, MCHC 32.9, RDW 15.9, Plt Count 99 L, MPV 10.3, Neut % (Auto) 67.6, Lymph % (Auto) 27.0, [place] % (Auto) 5.1, Eos % (Auto) 0.1, Baso % (Auto) 0.1, Neut # (Auto) 7.1, Lymph # (Auto) 2.9, [place] # (Auto) 0.5, Eos # (Auto) 0.0, Baso # (Auto) 0.0, Sodium 141, Potassium 3.3 L, Chloride 101, Carbon Dioxide 29, Anion Gap 14.3, BUN 53 H, Creatinine 3.80 H, Estimated Creat Clear 13, Estimated GFR 15 L*, Est GFR ( Amer) 18 L*, Glucose 122 H, Calcium 8.3 L, Magnesium 2.1, Total Bilirubin 1.2, AST 229 H, ALT 165 H, Alkaline Phosphatase 95, Total Protein 5.9 L, Albumin 3.4 L D, Globulin 2.5, Albumin/Globulin Ratio 1.4 I & O for Last 24 hours: Intake & Output 10/21/23 10/22/23 10/23/23 10/24/23 23:59 23:59 23:59 23:59 Intake Total 390 / 390 765 / 765 324 / 376 320.333 / 320.333 Output Total 0 / 0 250 / 250 1615 / 1740 1890 / 1890 Balance 390 / 390 515 / 515 -1291 / -1364 -1569.667 / -1569.667 Weight 139 lb 9.582 oz 149 lb 4 oz 147 lb 0.773 oz 140 lb 1.6 oz Microbiology Reports for the Last 24 Hours: Microbiology 10/22/23 02:00 Urine,Clean Catch Urine Culture - Final Constitutional Constitutional: no acute distress *Routine Respiratory Exam Respiratory: Present CTA bilaterally and symmetric chest movement *Routine Cardiovascular Exam Cardiovascular: Present RRR, Normal S1 and Normal S2 *Routine Abdominal Exam Abdominal: Present soft and normoactive bowel sounds; Absent tenderness *Routine Extremities Exam Extremities: Present full ROM and normal capillary refill; Absent edema *Routine Skin Exam Skin: Present intact, dry and warm Detailed Neck Exam: Thyroids Thyroid: Absent bruit Progress Note: A&P Assessment and plan (1) HFrEF (heart failure with reduced ejection fraction): Status: Acute (2) TIO (acute kidney injury): Status: Acute (3) Acute hypokalemia: Status: Acute (4) Constipated: Status: Acute (5) Tobacco dependence: Status: Acute Assessment and Plan Assessment and Plan for All Diagnoses:: This is a 88-year-old male with PMHx of atrial fibrillation on Eliquis, Chronic HFrEF/NICM s/p [place] [employer]-D with an EF of 10-15%, hx of an ICD atrial lead fracture, severe MR, PE in 2020, COPD with ongoing tobacco use and chronic kidney disease stage III, presented to emergency department for evaluation of constipation. A CT abdomen/pelvis showed a small volume ascites but no obvious bowel obstruction or other significant pathology. On admission labs were significant for an TIO and critical hypokalemia. Throughout the course of the hospitalization despite holding Entresto and nephrotoxic agents creatinine continued to elevate reaching 3.6 on 10/23 with patient complaining of soa. An echocardiogram showed a severely dilated LV with severe reduction in LV systolic function with an estimated EF of 10%, grade 2 diastolic dysfunction, mildly dilated RV, severe MR and severe TR worsening since previous echo 06/27/2023. Patient was taken for a right heart catheterization 10/23 to further assess volume status which showed cardiogenic shock and severe biventricular heart failure. Patient was started on milrinone and Lasix drips and Entresto was resumed. As of 10/24 patient remains stable and has diuresed greater than 2 L throughout the evening. Cardiology recommends patient remains inpatient for further diuresis with Lasix drip and continues milrinone at this time. After adequate diuresis, recommend sending patient home with palliative care and on milrinone. Right IJ sheath will remain in place at this time. Acute on Chronic HFrEF/NICM s/p [place] NYHA III at baseline Hx of Severe MR Hx of a fractured atrial pacemaker lead wire -Patient has been referred to for consideration of a MitraClip which he has declined in the past -Patient did see in 2022 for atrial lead fracture which he declined to repair -Echo 10/22/2023: Severely dilated LV with severe reduction in LV systolic function EF 10%, grade 2 diastolic dysfunction, mildly dilated RV, severe MR, severe TR. Compared to prior study from 07/16/2023 the severity of the MR and TR now appear worse. -Right heart cath 10/23/2023: Cardiogenic shock noted, severe biventricular heart failure. -Started on milrinone and lasix 10/23 after RHC. -Has diuresed 2 L and vitals remain stable. Recommend that if creatinine continues to rise milrinone be switched to dobutamine drip. Hx of Paroxysmal atrial fibrillation/VT Chadsvasc score 4 -Was diagnosed 07/16/2023, underwent DCCV and was started on amiodarone. -On Eliquis 2.5 mg p.o. twice daily -Continue metoprolol succinate 25 mg p.o. daily and amiodarone 200 mg p.o. twice daily History of PE in 2020 -No concern for PE on this admission. Continue Eliquis renal dose. COPD with ongoing tobacco use -Smoking cessation advised Acute on Chronic kidney disease stage III -Creatinine baseline 2.00 06/2023 -Creatinine reaching 3.8 on this admission -If creatinine continues to rise recommend switching milrinone to dobutamine drip Transaminitis -AST 229, ALT 165 CV summary 10/24/2023: Worsening TIO noted with creatinine up to 3.8, other labs remain stable. Patient remains on milrinone and Lasix drip and has diuresed greater than 2 L. Cardiology recommends keeping patient over the weekend for further diuresis and keeping sheath in place at this time. After adequately diuresed, consider sending patient home with a milrinone drip and palliative care. If official DNR status is made then biventricular AICD needs to be turned off. Cardiology recommends that if creatinine continues to rise, milrinone be switched to a dobutamine drip. Contact Dr. Keller over the weekend for any further issues or concerns.
[2023-10-24] MEDS: AMIODARONE 400 MG 200 EACH PO ×2 (10:12→20:21)
[2023-10-24] MEDS: APIXABAN 5MG TABLET 2.5 MG PO ×2 (10:13→20:18)
[2023-10-24] MEDS: DOCUSATE SODIUM 100 MG CAPSULE PO ×2 (10:15→20:19)
[2023-10-24] MEDS: *PAT OWN MED* PANTOPRAZOLE 40MG TABLET 40 MG PO (10:16)
[2023-10-24] MEDS: POLYETHYLENE GLYCOL 3350 17 GM PACKET PO ×2 (10:16→20:17)
[2023-10-24] MEDS: POTASSIUM CHLORIDE 20MEQ TAB 40 MEQ PO ×2 (10:17→20:20)
[2023-10-24] MEDS: FLUTICASONE PROP 50MCG NASAL SPRAY 16GM 1 SPRAY NS (10:18)
[2023-10-24] MEDS: FUROSEMIDE 100 MG in 0.9 % SODIUM CHLORIDE 90 ML 10 MG IV ×2 (10:45→20:16)
--- NOTE | 2023-10-24 10:52 | XR_ITS ---
FINAL REPORT CLINICAL HISTORY: Confirm PICC line placement COMPARISON: 10/23/2023 FINDINGS: The heart size is mildly enlarged. Left-sided pacer is noted. Left sided PICC line is present with the tip in the SVC. The mediastinum is normal. Mild chronic changes at the right base are stable. There is no focal infiltrate or edema. There are no pleural effusions. There is no pneumothorax. There is no osseous abnormality. IMPRESSION: Chronic changes without acute cardiopulmonary process. Left PICC line tip in the SVC. Reviewed, Interpreted and Dictated by Olman Madden MD Transcribed by Romelia Kelly Authenticated and [facility]
--- NOTE | 2023-10-24 11:30 | PC.NURSE ---
Paola Hodges RN in room preparing for PICC line placement.
--- NOTE | 2023-10-24 11:48 | P.PN_ITS ---
Subjective *Date: 10/24/23 *Time: 13:29 Interval history: Patient alert and oriented this morning. Still feeling short of breath, on 2 L nasal cannula oxygen. Has diuresed well. -2 L since initiating Lasix drip. Denies any chest pain. Still complaining of throat irritation. Tolerating p.o. fluids however without difficulty. Medical Exam Vital signs and Labs for Last 24 Hours: Vital Signs Temp Pulse Pulse Resp BP Pulse Ox O2 Del Method 10/24/23 08:00 80 10/24/23 08:00 83 20 117/58 L 96 Nasal Cannula 10/24/23 09:00 87 22 123/76 96 10/24/23 09:00 Nasal Cannula 10/24/23 07:58 98.9 F 10/24/23 07:00 88 22 121/62 96 Nasal Cannula 10/24/23 06:59 Nasal Cannula 10/24/23 06:49 87 10/24/23 06:49 84 10/24/23 06:49 97 Nasal Cannula 10/24/23 06:00 86 12 113/60 95 Nasal Cannula 10/24/23 04:00 87 10/24/23 05:10 90 22 121/65 95 Nasal Cannula 10/24/23 05:10 Nasal Cannula 10/24/23 04:00 97.8 F 94 H 14 129/61 96 Nasal Cannula 10/24/23 04:00 14 96 Nasal Cannula 10/24/23 03:00 90 16 111/68 93 L Nasal Cannula 10/24/23 03:00 Nasal Cannula 10/24/23 02:00 90 16 118/69 97 Nasal Cannula 10/24/23 00:00 92 H 10/24/23 01:00 88 16 123/55 L 96 Nasal Cannula 10/24/23 01:00 Nasal Cannula 10/24/23 00:00 98.6 F 94 H 22 133/61 93 L Nasal Cannula 10/24/23 00:00 22 93 L Nasal Cannula 10/23/23 23:05 78 10/23/23 23:05 79 10/23/23 23:00 90 18 137/61 95 Nasal Cannula 10/23/23 23:00 Nasal Cannula 10/23/23 22:00 92 H 16 136/68 94 L Nasal Cannula 10/23/23 20:00 87 10/23/23 21:00 94 H 16 135/54 L 96 Nasal Cannula 10/23/23 21:00 Nasal Cannula 10/23/23 20:00 86 116/67 97 Nasal Cannula 10/23/23 20:00 97.8 F 86 20 116/67 97 Nasal Cannula 10/23/23 20:00 20 97 Nasal Cannula 10/23/23 19:00 Nasal Cannula 10/23/23 18:45 88 18 123/76 97 Nasal Cannula 10/23/23 18:07 90 10/23/23 18:07 91 H 10/23/23 18:07 99 Nasal Cannula 10/23/23 17:45 85 18 117/72 97 Nasal Cannula 10/23/23 17:15 85 18 151/101 H 97 Nasal Cannula 10/23/23 16:45 80 18 118/67 97 Nasal Cannula 10/23/23 16:00 80 10/23/23 16:00 80 10/23/23 16:57 Nasal Cannula 10/23/23 16:15 79 18 120/71 95 Nasal Cannula 10/23/23 15:58 Nasal Cannula 10/23/23 15:30 81 18 117/70 97 Nasal Cannula 10/23/23 15:15 82 18 118/71 94 L Nasal Cannula 10/23/23 15:00 81 19 119/72 99 10/23/23 14:55 82 18 123/74 99 10/23/23 14:50 82 18 116/75 96 10/23/23 14:45 81 18 121/71 96 Simple Mask 10/23/23 14:40 82 18 129/74 93 L Simple Mask 10/23/23 14:35 82 18 135/82 96 Simple Mask 10/23/23 14:30 82 86 18 140/68 99 Simple Mask 10/23/23 12:00 80 10/23/23 12:56 Room Air O2 Flow Rate 10/24/23 08:00 10/24/23 08:00 2 10/24/23 09:00 10/24/23 09:00 2 10/24/23 07:58 10/24/23 07:00 2 10/24/23 06:59 2 10/24/23 06:49 10/24/23 06:49 10/24/23 06:49 2 10/24/23 06:00 2 10/24/23 04:00 10/24/23 05:10 2 10/24/23 05:10 2 10/24/23 04:00 2 10/24/23 04:00 2 10/24/23 03:00 2 10/24/23 03:00 2 10/24/23 02:00 2 10/24/23 00:00 10/24/23 01:00 2 10/24/23 01:00 2 10/24/23 00:00 2 10/24/23 00:00 2 10/23/23 23:05 10/23/23 23:05 10/23/23 23:00 2 10/23/23 23:00 2 10/23/23 22:00 2 10/23/23 20:00 10/23/23 21:00 2 10/23/23 21:00 2 10/23/23 20:00 2 10/23/23 20:00 2 10/23/23 20:00 10/23/23 19:00 2 10/23/23 18:45 2 10/23/23 18:07 10/23/23 18:07 10/23/23 18:07 2 10/23/23 17:45 2 10/23/23 17:15 2 10/23/23 16:45 2 10/23/23 16:00 10/23/23 16:00 10/23/23 16:57 2 10/23/23 16:15 2 10/23/23 15:58 2 10/23/23 15:30 2 10/23/23 15:15 2 10/23/23 15:00 10/23/23 14:55 10/23/23 14:50 10/23/23 14:45 6 10/23/23 14:40 6 10/23/23 14:35 6 10/23/23 14:30 6 10/23/23 12:00 10/23/23 12:56 Intake and Output 10/23/23 10/24/23 10/24/23 23:59 07:59 15:59 Intake Total 224 / 376 263 / 320.333 57.333 / 320.333 Output Total 1165 / 1740 1340 / 1890 550 / 1890 Balance -941 / -1364 -1077 / -1569.667 -492.667 / -1569.667 Intake: Intake, Oral Amount 25 / 25 0 / 0 0 / 0 Intake, Total IV Amount 199 / 351 263 / 320.333 57.333 / 320.333 Furosemide 100 mg In 0.9 % 73 / 81 28 / 28 Sodium Chloride 90 ml @ 10 MG/ HR 10 mls/hr IV .Q10H ONE Rx#: [id number] Furosemide 100 mg In 0.9 % 49 / 63 14 / 63 Sodium Chloride 90 ml @ 10 MG/ HR 10 mls/hr IV .Q10H FILIBERTO Rx#: [id number] KCl 20mEq/100ml 100 ml @ 50 mls 108 / 150 165 / 165 /hr IV Q2H FILIBERTO Rx#:[id number] Milrinone Lactate 20 mg In 0.9 18 / 20 21 / 21 % Sodium Chloride 80 ml @ 0.125 MCG/KG/MIN 2.501 mls/hr IV . Q24H FILIBERTO Rx#:[id number] Output: Output, Urine Amount 0 / 200 0 / 0 Output, Urine Amount (Catheter) 1165 / 1540 1340 / 1890 550 / 1890 [place] 1165 / 1540 1340 / 1890 550 / 1890 Other: Number of Unmeasured Voids 0 Weight 63.548 kg Patient Weight 10/24/23 23:59 Weight 63.548 kg Laboratory Results - last 24 hr 10/23/23 14:18: ABG O2 Sat (Measured) 31.5 L, POC VBG O2 Sat (Carey) 32.4 L 10/23/23 19:18: Sodium 138, Potassium 3.1 L, Chloride 98, Carbon Dioxide 29, Anion Gap 14.1, BUN 47 H, Creatinine 3.70 H, Estimated Creat Clear 14, Estimated GFR 16 L*, Est GFR ( Amer) 19 L*, Glucose 135 H, Calcium 8.4 10/23/23 : Urine Color Yellow, Urine Appearance Sl cloudy, Urine pH 6.0, Ur Specific [place] 1.020, Urine Protein 2+, Urine Glucose (UA) 2+, Urine Ketones Negative, Urine Blood 3+, Urine Nitrate Negative, Urine Bilirubin Negative, Urine Urobilinogen 0.2, Ur Leukocyte Esterase Negative, Urine RBC 3-5, Urine WBC 5-10, Ur Squamous Epith Cells Occasional, Urine Bacteria 2+, Fine Granular Casts 3-5 10/24/23 06:19: WBC 10.6, RBC 3.32 L, Hgb 9.8 L, Hct 29.7 L, MCV 89.7, MCH 29.5, MCHC 32.9, RDW 15.9, Plt Count 99 L, MPV 10.3, Neut % (Auto) 67.6, Lymph % (Auto) 27.0, [place] % (Auto) 5.1, Eos % (Auto) 0.1, Baso % (Auto) 0.1, Neut # (Auto) 7.1, Lymph # (Auto) 2.9, [place] # (Auto) 0.5, Eos # (Auto) 0.0, Baso # (Auto) 0.0, Sodium 141, Potassium 3.3 L, Chloride 101, Carbon Dioxide 29, Anion Gap 14.3, BUN 53 H, Creatinine 3.80 H, Estimated Creat Clear 13, Estimated GFR 15 L*, Est GFR ( Amer) 18 L*, Glucose 122 H, Calcium 8.3 L, Magnesium 2.1, Total Bilirubin 1.2, AST 229 H, ALT 165 H, Alkaline Phosphatase 95, Total Protein 5.9 L, Albumin 3.4 L D, Globulin 2.5, Albumin/Globulin Ratio 1.4 I & O for Labs for Last 24 Hours: Intake & Output 10/21/23 10/22/23 10/23/23 10/24/23 23:59 23:59 23:59 23:59 Intake Total 390 / 390 765 / 765 324 / 376 320.333 / 320.333 Output Total 0 / 0 250 / 250 1615 / 1740 1890 / 1890 Balance 390 / 390 515 / 515 -1291 / -1364 -1569.667 / -1569.667 Weight 63.321 kg 67.699 kg 66.7 kg 63.548 kg Microbiology Reports for the Last 24 Hours: Microbiology 10/22/23 02:00 Urine,Clean Catch Urine Culture - Final Constitutional: Present no acute distress, average body habitus and chronically ill appearing Head: Present atraumatic ENT: Present normal exam Comment:: Sheath in right IJ Respiratory: Present normal respiratory effort; Absent accessory muscle use, rhonchi, wheezes or crackles Cardiac: Present Reg Rate and Rhythm and Systolic Murmur GI: Present soft and normal bowel sounds; Absent distention or tenderness Extremities: Present normal inspection and full ROM; Absent edema Skin: Present intact; Absent erythema Neuro: Present Grossly Intact, alert, awake and moves all extremities Assessment and Plan *Assessment and plan (1) HFrEF (heart failure with reduced ejection fraction): Status: Acute Category: Medical Code(s): I50.20 - Unspecified systolic (congestive) heart failure (2) TIO (acute kidney injury): Status: Acute Category: Medical Code(s): N17.9 - Acute kidney failure, unspecified (3) Acute hypokalemia: Status: Acute Category: Medical Code(s): E87.6 - Hypokalemia (4) Constipated: Status: Acute Qualifiers: Constipation type: unspecified constipation type Qualified Code(s): K59.00 - Constipation, unspecified Category: Medical Code(s): K59.00 - Constipation, unspecified (5) Tobacco dependence: Status: Acute Category: Medical Code(s): F17.200 - Nicotine dependence, unspecified, uncomplicated Plan 88-year-old male with PMHx of atrial fibrillation on anticoagulation, COPD not on home oxygen, CHF status post pacemaker placement, CAD, with who presents emergency department for evaluation of constipation. Patient has had a bowel movement in [address] imaging reviewed, shows small volume ascites but no obvious bowel obstruction or other significant pathology. He has no significant stool burden. labs are obatained and there are significant for TIO and critical hypokalemia. Discussion made with ER provider. Agreed for admission. Patient's kidney function worsening today. Discussed case with cardiology, taken for right heart cath. Found to be in worsening heart failure with component of cardiogenic shock. Concerned that elevation in liver enzymes and creatinine are related to hepatic congestion and cardiorenal syndrome. Escalated to ICU for milrinone drip. Continues to require inpatient management. Problems addressed as follows: - [facility] HFrEF -A-fib -CAD - Pacemaker in situ - Severe MR/TR Echo obtained 10/22 with severely dilated LV, reduced LV function, EF 10%. Grade 2 diastolic dysfunction. Severe MR and TR. This is worse since echo 3 months ago. Right heart cath performed 10/23 with cardiogenic shock noted. Severe biventricular heart failure. continue milrinone 0.125 mcg/kg/min. Continue Entresto for afterload reduction Continue Lasix drip, -2L in 24hrs Strict I's and O's, Collins in place Continue amiodarone, Eliquis, statin Place PICC line for possible DC on Milrinone Will disengage BiV AICD due to DNR status Acute on Chronic kidney disease stage III -Creatinine baseline 2.00 06/2023 -Creatinine increased to 3.8 today. Repeat CMP, CBC, magnesium ordered for the afternoon and morning. - BUN 53 -Caution with nephrotoxic's Transaminitis -AST 229, ALT 165. Secondary to hepatic congestion. Monitor for improvement with diuresis COPD: DuoNebs every 6 hours prn. cont. Trelegy 100 inhaler. Tobacco dependance: nicotine patch. Smoking cessation advised, patient continues to smoke prior to admission DNR. Cardiac diet
--- NOTE | 2023-10-24 13:27 | PC.NURSE ---
Cardiology in room interrogating pacemaker. Spoke with Amara Jasso who reports that AICD has been turned off. Patient tolerated procedure well. No further orders received.
--- NOTE | 2023-10-24 14:24 | XR_ITS ---
FINAL REPORT CLINICAL HISTORY: PICC Placement COMPARISON: 2 hours prior FINDINGS: The heart size is mildly enlarged. Biventricular pacer is present. PICC line is looped upon itself in the SVC with the tip directed superiorly. There is a mild airspace opacity at the right lung base, less evident than on the prior exam. There are no pleural effusions. There is no pneumothorax. There is no osseous abnormality. IMPRESSION: PICC line as above. Mild right lung base airspace opacity. Reviewed, Interpreted and Dictated by Olman Madden MD Transcribed by Romelia Kelly Authenticated and [facility]
--- NOTE | 2023-10-24 14:55 | XR_ITS ---
FINAL REPORT CLINICAL HISTORY: PICC line placement COMPARISON: 10/24/2023 FINDINGS: SINGLE-VIEW CHEST There is mild cardiomegaly. Pacer is identified. PICC line is malpositioned and looped upon itself. The mediastinum is normal. There is mild opacity at the right base, probably due to atelectasis. There is no pneumothorax. IMPRESSION: Malpositioned PICC line. No change from prior. Reviewed, Interpreted and Dictated by Olman Madden MD Transcribed by Chantel Easton Authenticated and [facility]
--- NOTE | 2023-10-24 15:43 | PC.NURSE ---
PICC line was ordered by . Patient consent signed. Discussed with MD last platelet count of 99. MD aware, OK to continue with PICC line placement. PICC line attempted on right side due to IJ sheath in place from cath procedure. After multiple attempts to thread PICC line catheter was not in the correct location. Radiology read of chest XRay states PICC line terminates in the mid SVC but Dr. Strange disagreed and ordered PICC to be discontinued and a new one placed on the left side. Left side PICC then attempted but again would not successfully thread to the correct location. After multiple attempts to thread catheter, Dr. Strange ordered a Midline Catheter to be placed. 14 cm, 4 fr. Midline catheter placed in the left upper arm successfully with blood returned noted.
[2023-10-24 18:40] LABS: Anion Gap 8.8 mEq/L (5-15); Blood Urea Nitrogen 54 mg/dl (9-20); Calcium 8.2 mg/dl (8.4-10.2); Carbon Dioxide 33 mmol/L (22.0-30.0); Chloride 98 mmol/L (98-107); Creatinine Clearance Estimated 13 mL/min (50-200); Estimated Glomerular Filt Rate 15 ml/min (>60); GFR (African American) 18 ML/MIN (>60); Glucose 156 mg/dl (74-100); Potassium 3.8 mmoL/L (3.5-5.1); Sodium 136 mmol/L (136-145)
[2023-10-24] MEDS: MILRINONE LACTATE 20 MG in 0.9 % SODIUM CHLORIDE 80 ML 2.5 MG IV (20:16)
[2023-10-24] MEDS: METOPROLOL SUCCINATE 25 MG PO (20:21)
[2023-10-25] VITALS (24 sets, daily range): BP systolic 86–129; BP diastolic 43–66; PULSE 76–108; RESP 14–20; TEMP 36.7; O2SAT 86–97; BMI 21.4
--- NOTE | 2023-10-25 06:17 | PC.NURSE ---
Patient has rested well this shift with no c/o pain or discomfort. No acute changes noted this shift. Patient remains on Milirone and Lasix gtt as ordered. Vitals have been stable. Urinary output has been adequate with 1875 ML out, urine is concentrated. Patient remains on 2LNC oxygen saturations have maintained greater than 90% this shift. Patient has turned and repositioned his self as needed. Did not want a bath this shift stated he was too tired. Patient has been AOx4, and has stated he feels better today. Midline in ERIC is patent and draws (morning labs drawn and sent to lab) RIJ sheath and patent with last flush at 0300. Call galicia, water pitcher, personal belongings and bedside table all with in reach.
[2023-10-25] MEDS: FUROSEMIDE 100 MG in 0.9 % SODIUM CHLORIDE 90 ML 10 MG IV (06:23)
[2023-10-25] MEDS: FLUTICASONE/UMECLIDIN/VILANTER 100/62.5/25MCG INHALER 1 PUFF IH (06:35)
[2023-10-25] MEDS: IPRATROPIUM/ALBUTEROL 3 ML NEB IH ×4 (06:35→22:57)
[2023-10-25 06:56] LABS: Basophils % 0.3 % (0.1-2.0); Eosinophils % 0.3 % (0.1-12.0); Hemoglobin 9.4 g/dL (14.1-18.0); Lymphocytes # 3.1 K/mm3 (0.7-4.5); Lymphocytes % 33.8 % (10-50); Mean Corpuscular HGB Conc 32.6 g/dL (31.8-35.4); Mean Corpuscular Hemoglobin 29.1 pg (27.0-31.2); Mean Corpuscular Volume 89.2 fl (80-94); Mean Platelet Volume 10.2 fl (7.4-10.4); Monocytes # 0.7 K/mm3 (0.1-1.0); Monocytes % 7.1 % (1.7-9.3); Neutrophils # 5.4 K/mm3 (1.8-7.8); Neutrophils % 58.5 % (37.0-80.0); Platelet Count 86 K/mm3 (142-424); Red Blood Count 3.25 M/mm3 (4.60-6.20); Red Cell Distribution Width 15.8 % (11.5-17.5); White Blood Count 9.2 K/mm3 (4.8-10.8)
[2023-10-25 06:58] LABS: Chloride 99 mmol/L (98-107); Potassium 3.8 mmoL/L (3.5-5.1); Sodium 139 mmol/L (136-145)
[2023-10-25 07:01] LABS: Alanine Aminotransferase 186 U/L (12-78); Albumin Level 3.4 g/dl (3.5-5.0); Albumin/Globulin Ratio 1.4 (1.1-1.8); Alkaline Phosphatase 92 U/L (38-126); Anion Gap 9.8 mEq/L (5-15); Aspartate Amino Transferase 210 U/L (17-59); Blood Urea Nitrogen 53 mg/dl (9-20); Calcium 8.2 mg/dl (8.4-10.2); Carbon Dioxide 34 mmol/L (22.0-30.0); Creatinine Clearance Estimated 12 mL/min (50-200); Estimated Glomerular Filt Rate 14 ml/min (>60); GFR (African American) 17 ML/MIN (>60); Globulin 2.4 g/dL (1.3-3.2); Glucose 105 mg/dl (74-100); Total Protein,Serum 5.8 g/dl (6.3-8.2)
[2023-10-25 07:12] LABS: Magnesium 2.1 mg/dl (1.6-2.3)
--- NOTE | 2023-10-25 07:13 | PC.NURSE ---
[place] GTT is paused per Dr. Strange
--- NOTE | 2023-10-25 07:14 | P.PN_ITS ---
Subjective *Date: 10/25/23 *Time: 11:25 Interval history: Patient states he feels a little better this morning. Breathing better. Weaned to 1 L oxygen. No nausea or vomiting. Drink protein shake for breakfast. Afebrile. Blood pressures have been appropriate. Diuresing well. -1.5L over the past 24 hours. Medical Exam Vital signs and Labs for Last 24 Hours: Vital Signs Temp Pulse Pulse Resp BP Pulse Ox O2 Del Method 10/25/23 06:35 76 10/25/23 06:35 78 10/25/23 06:35 96 Nasal Cannula 10/25/23 06:00 98.1 F 80 18 100/52 L 95 Nasal Cannula 10/25/23 05:00 78 16 110/55 L 96 Nasal Cannula 10/25/23 04:00 80 10/25/23 04:00 98.1 F 80 16 106/60 L 97 Nasal Cannula 10/25/23 04:00 82 10/25/23 03:00 80 16 114/56 L 96 Nasal Cannula 10/25/23 02:00 83 18 114/60 93 L Nasal Cannula 10/25/23 00:00 83 10/25/23 01:00 83 16 110/57 L 97 Nasal Cannula 10/25/23 00:00 82 10/25/23 00:00 81 20 108/48 L 97 Nasal Cannula 10/24/23 23:00 98.1 F 83 18 116/60 98 Nasal Cannula 10/24/23 23:17 81 10/24/23 23:17 85 10/24/23 20:00 90 10/24/23 22:00 81 20 114/56 L 96 Nasal Cannula 10/24/23 21:00 86 18 113/54 L 96 Nasal Cannula 10/24/23 21:00 Nasal Cannula 10/24/23 20:00 85 10/24/23 20:00 98.0 F 87 18 110/57 L 96 Nasal Cannula 10/24/23 18:00 83 10/24/23 18:00 83 10/24/23 18:00 99 Nasal Cannula 10/24/23 16:00 80 10/24/23 16:00 98.3 F 10/24/23 15:00 84 24 112/57 L 96 Nasal Cannula 10/24/23 15:00 Nasal Cannula 10/24/23 12:00 98.4 F 10/24/23 12:00 85 10/24/23 14:12 88 10/24/23 14:12 88 10/24/23 14:00 85 12 121/50 L 92 L Nasal Cannula 10/24/23 13:00 85 16 113/69 96 10/24/23 13:00 Nasal Cannula 10/24/23 11:00 Nasal Cannula 10/24/23 12:00 89 18 110/57 L 95 Nasal Cannula 10/24/23 11:00 82 20 109/59 L 97 Nasal Cannula 10/24/23 10:00 85 20 115/66 94 L Nasal Cannula 10/24/23 08:00 80 10/24/23 08:00 83 20 117/58 L 96 Nasal Cannula 10/24/23 09:00 87 22 123/76 96 10/24/23 09:00 Nasal Cannula 10/24/23 19:00 86 14 90/45 L 96 Nasal Cannula 10/24/23 18:00 83 30 H 129/56 L 99 Nasal Cannula 10/24/23 17:00 91 H 14 100/54 L 97 Nasal Cannula 10/24/23 07:58 98.9 F O2 Flow Rate 10/25/23 06:35 10/25/23 06:35 10/25/23 06:35 3 10/25/23 06:00 2 10/25/23 05:00 2 10/25/23 04:00 10/25/23 04:00 2 10/25/23 04:00 10/25/23 03:00 2 10/25/23 02:00 2 10/25/23 00:00 10/25/23 01:00 2 10/25/23 00:00 10/25/23 00:00 2 10/24/23 23:00 2 10/24/23 23:17 10/24/23 23:17 10/24/23 20:00 10/24/23 22:00 2 10/24/23 21:00 2 10/24/23 21:00 2 10/24/23 20:00 10/24/23 20:00 2 10/24/23 18:00 10/24/23 18:00 10/24/23 18:00 3 10/24/23 16:00 10/24/23 16:00 10/24/23 15:00 2 10/24/23 15:00 2 10/24/23 12:00 10/24/23 12:00 10/24/23 14:12 10/24/23 14:12 10/24/23 14:00 2 10/24/23 13:00 10/24/23 13:00 2 10/24/23 11:00 2 10/24/23 12:00 2 10/24/23 11:00 2 10/24/23 10:00 2 10/24/23 08:00 10/24/23 08:00 2 10/24/23 09:00 10/24/23 09:00 2 10/24/23 19:00 2 10/24/23 18:00 2 10/24/23 17:00 2 10/24/23 07:58 Intake and Output 10/24/23 10/24/23 10/25/23 15:59 23:59 07:59 Intake Total 827.333 / 1693.500 590.667 / 1693.500 147.5 / 147.5 Output Total 1975 / 4714 1324 / 4714 1125 / 1125 Balance -1147.667 / -3020.500 -733.333 / -3020.500 -977.5 / -977.5 Intake: Intake, Oral Amount 680 / 1160 480 / 1160 60 / 60 Intake, Total IV Amount 147.333 / 481.000 70.667 / 481.000 Furosemide 100 mg In 0.9 % 84 / 183 50 / 183 Sodium Chloride 90 ml @ 10 MG/ HR 10 mls/hr IV .Q10H FILIBERTO Rx#: [id number] Milrinone Lactate 20 mg In 0.9 10 / 31 % Sodium Chloride 80 ml @ 0.125 MCG/KG/MIN 2.501 mls/hr IV . Q24H FILIBERTO Rx#:[id number] Infusion Intake 40.0 / 52.5 87.5 / 87.5 Furosemide 100 mg In 0.9 % 30 / 40 70 / 70 Sodium Chloride 90 ml @ 10 MG/ HR 10 mls/hr IV .Q10H FILIBERTO Rx#: [id number] Milrinone Lactate 20 mg In 0.9 10.0 / 12.5 17.5 / 17.5 % Sodium Chloride 80 ml @ 0.125 MCG/KG/MIN 2.501 mls/hr IV . Q24H FILIBERTO Rx#:[id number] Output: Output, Urine Amount (Catheter) 1974 Collins 1974 Other: Weight 61.915 kg Patient Weight 10/25/23 23:59 Weight 61.915 kg Laboratory Results - last 24 hr 10/24/23 06:19: WBC 10.6, RBC 3.32 L, Hgb 9.8 L, Hct 29.7 L, MCV 89.7, MCH 29.5, MCHC 32.9, RDW 15.9, Plt Count 99 L, MPV 10.3, Neut % (Auto) 67.6, Lymph % (Auto) 27.0, [place] % (Auto) 5.1, Eos % (Auto) 0.1, Baso % (Auto) 0.1, Neut # (Auto) 7.1, Lymph # (Auto) 2.9, [place] # (Auto) 0.5, Eos # (Auto) 0.0, Baso # (Auto) 0.0, Sodium 141, Potassium 3.3 L, Chloride 101, Carbon Dioxide 29, Anion Gap 14.3, BUN 53 H, Creatinine 3.80 H, Estimated Creat Clear 13, Estimated GFR 15 L*, Est GFR ( Amer) 18 L*, Glucose 122 H, Calcium 8.3 L, Magnesium 2.1, Total Bilirubin 1.2, AST 229 H, ALT 165 H, Alkaline Phosphatase 95, Total Protein 5.9 L, Albumin 3.4 L D, Globulin 2.5, Albumin/Globulin Ratio 1.4 10/24/23 18:20: Sodium 136, Potassium 3.8, Chloride 98, Carbon Dioxide 33 H, Anion Gap 8.8, BUN 54 H, Creatinine 3.80 H, Estimated Creat Clear 13, Estimated GFR 15 L*, Est GFR ( Amer) 18 L*, Glucose 156 H D, Calcium 8.2 L 10/25/23 06:21: WBC 9.2, RBC 3.25 L, Hgb 9.4 L, Hct 29.0 L, MCV 89.2, MCH 29.1, MCHC 32.6, RDW 15.8, Plt Count 86 L, MPV 10.2, Neut % (Auto) 58.5, Lymph % (Auto) 33.8, [place] % (Auto) 7.1, Eos % (Auto) 0.3, Baso % (Auto) 0.3, Neut # (Auto) 5.4, Lymph # (Auto) 3.1, [place] # (Auto) 0.7, Eos # (Auto) 0.0, Baso # (Aut o) 0.0, Sodium 139, Potassium 3.8, Chloride 99, Carbon Dioxide 34 H, Anion Gap 9.8, BUN 53 H, Creatinine 4.00 H, Estimated Creat Clear 12, Estimated GFR 14 L*, Est GFR ( Amer) 17 L*, Glucose 105 H D, Calcium 8.2 L, Magnesium 2.1, To marin Bilirubin 1.0, AST 210 H, ALT 186 H, Alkaline Phosphatase 92, Total Protein 5.8 L, Albumin 3.4 L, Globulin 2.4, Albumin/Globulin Ratio 1.4 I & O for Labs for Last 24 Hours: Intake & Output 10/22/23 10/23/23 10/24/23 10/25/23 23:59 23:59 23:59 23:59 Intake Total 765 / 765 324 / 376 1681.000 / 1693.500 147.5 / 147.5 Output Total 250 / 250 1615 / 1740 4639 / 4714 1125 / 1125 Balance 515 / 515 -1291 / -1364 -2958.000 / -3020.500 -977.5 / -977.5 Weight 67.699 kg 66.7 kg 63.548 kg 61.915 kg Microbiology Reports for the Last 24 Hours: Microbiology 10/22/23 02:00 Urine,Clean Catch Urine Culture - Final Constitutional: Present no acute distress, average body habitus and chronically ill appearing Head: Present atraumatic ENT: Present normal exam Comment:: Sheath in right IJ Respiratory: Present normal respiratory effort; Absent accessory muscle use, rhonchi, wheezes or crackles Cardiac: Present Reg Rate and Rhythm and Systolic Murmur GI: Present soft and normal bowel sounds; Absent distention or tenderness Extremities: Present normal inspection and full ROM; Absent edema Comment:: Midline and right upper arm Skin: Present intact; Absent erythema Neuro: Present Grossly Intact, alert, awake and moves all extremities Assessment and Plan *Assessment and plan (1) HFrEF (heart failure with reduced ejection fraction): Status: Acute Category: Medical Code(s): I50.20 - Unspecified systolic (congestive) heart failure (2) TIO (acute kidney injury): Status: Acute Category: Medical Code(s): N17.9 - Acute kidney failure, unspecified (3) Acute hypokalemia: Status: Acute Category: Medical Code(s): E87.6 - Hypokalemia (4) Constipated: Status: Acute Qualifiers: Constipation type: unspecified constipation type Qualified Code(s): K59.00 - Constipation, unspecified Category: Medical Code(s): K59.00 - Constipation, unspecified (5) Tobacco dependence: Status: Acute Category: Medical Code(s): F17.200 - Nicotine dependence, unspecified, uncomplicated Plan 88-year-old male with PMHx of atrial fibrillation on anticoagulation, COPD not on home oxygen, CHF status post pacemaker placement, CAD, with who presents emergency department for evaluation of constipation. Patient has had a bowel m ovement in [address] imaging reviewed, shows small volume ascites but no obvious bowel obstruction or other significant pathology. He has no significant stool burden. labs are obatained and there are significant for TIO and critical hypokalemia. Discussion made with ER provider. Agreed for admission. Patient's kidney function worsening today. Discussed case with cardiology, taken for right heart cath. Found to be in worsening heart failure with component of cardiogenic shock. Concerned that elevation in liver enzymes and creatinine are related to hepatic congestion and cardiorenal syndrome. Continues to require ICU level care given milrinone drip. 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 Hold Lasix drip for today given negative fluid status. -4.5 L since initiating Lasix. Strict I's and O's, will discontinue Collins today however. Encourage mobility. Oxygen saturation goal greater than 90%, currently on 1 to 2 L. Wean as tolerated Continue amiodarone, Eliquis, statin disengaged BiV AICD due to DNR status yesterday Strict monitoring of electrolytes given diuresis. Repeat BMP this afternoon, CB C and magnesium and CMP ordered for the morning Acute on Chronic kidney disease stage III -Creatinine baseline 2.00 06/2023 -Creatinine 4.0 this morning, BUN 57. Essentially stable from yesterday. - caution with nephrotoxic's Transaminitis -AST AST with marginal improvement to 210, ALT to 105, Secondary to hepatic congestion. Monitor for improvement with diuresis. CMP ordered for the morning COPD: DuoNebs every 6 hours prn. cont. Trelegy 100 inhaler. Tobacco dependance: nicotine patch. Smoking cessation advised, patient continues to smoke prior to admission DNR. Cardiac diet
[2023-10-25] MEDS: *PAT OWN MED* PANTOPRAZOLE 40MG TABLET 40 MG PO (08:46)
[2023-10-25] MEDS: POLYETHYLENE GLYCOL 3350 17 GM PACKET PO ×3 (08:47→20:27)
[2023-10-25] MEDS: AMIODARONE 400 MG 200 EACH PO ×2 (08:47→20:28)
[2023-10-25] MEDS: POTASSIUM CHLORIDE 20MEQ TAB 40 MEQ PO ×2 (08:48→20:27)
[2023-10-25] MEDS: APIXABAN 5MG TABLET 2.5 MG PO ×2 (08:48→20:25)
[2023-10-25] MEDS: DOCUSATE SODIUM 100 MG CAPSULE PO ×2 (08:48→20:27)
[2023-10-25] MEDS: FLUTICASONE PROP 50MCG NASAL SPRAY 16GM 1 SPRAY NS (08:48)
--- NOTE | 2023-10-25 10:54 | PC.NURSE ---
removed rossi catheter per order and urinal given to pt, informed pt needs to use urinal so can precisely measure output
[2023-10-25 18:33] LABS: Chloride 94 mmol/L (98-107); Sodium 134 mmol/L (136-145)
[2023-10-25 18:34] LABS: Potassium 3.6 mmoL/L (3.5-5.1)
[2023-10-25 18:36] LABS: Blood Urea Nitrogen 54 mg/dl (9-20); Creatinine Clearance Estimated 12 mL/min (50-200); Estimated Glomerular Filt Rate 14 ml/min (>60); GFR (African American) 17 ML/MIN (>60)
[2023-10-25 18:37] LABS: Anion Gap 11.6 mEq/L (5-15); Calcium 8.6 mg/dl (8.4-10.2); Carbon Dioxide 32 mmol/L (22.0-30.0); Glucose 176 mg/dl (74-100)
--- NOTE | 2023-10-25 20:05 | PC.NURSE ---
sheath flushed with Rafal Strong RN at 1920
[2023-10-25] MEDS: METOPROLOL SUCCINATE 25 MG PO (20:26)
[2023-10-26] VITALS (18 sets, daily range): BP systolic 82–133; BP diastolic 48–78; PULSE 76–160; RESP 14–31; TEMP 36.2–36.7; O2SAT 93–99; BMI 21.9
--- NOTE | 2023-10-26 04:58 | PC.NURSE ---
pt is A&Ox4, ambulates in room with assistance, no complaints of pain this shift, paced on tele with HR between 97 and 110, O2 sats 94%-98% on 3L NC, sheath was flushed with Rafal Braun RN at 0430, call light is within reach.
[2023-10-26] MEDS: FLUTICASONE/UMECLIDIN/VILANTER 100/62.5/25MCG INHALER 1 PUFF IH (06:10)
[2023-10-26] MEDS: IPRATROPIUM/ALBUTEROL 3 ML NEB IH (06:10)
[2023-10-26 06:38] LABS: Basophils % 0.2 % (0.1-2.0); Eosinophils # 0.1 K/mm3 (0.0-0.4); Eosinophils % 0.4 % (0.1-12.0); Hematocrit 28.8 % (42.0-52.0); Hemoglobin 9.4 g/dL (14.1-18.0); Lymphocytes # 2.7 K/mm3 (0.7-4.5); Lymphocytes % 17.7 % (10-50); Mean Corpuscular HGB Conc 32.7 g/dL (31.8-35.4); Mean Corpuscular Hemoglobin 29.3 pg (27.0-31.2); Mean Corpuscular Volume 89.8 fl (80-94); Mean Platelet Volume 10.7 fl (7.4-10.4); Monocytes # 0.9 K/mm3 (0.1-1.0); Monocytes % 5.7 % (1.7-9.3); Neutrophils # 11.4 K/mm3 (1.8-7.8); Neutrophils % 75.9 % (37.0-80.0); Platelet Count 88 K/mm3 (142-424); Red Blood Count 3.21 M/mm3 (4.60-6.20); Red Cell Distribution Width 15.7 % (11.5-17.5)
[2023-10-26 06:40] LABS: MANUAL DIFFERENTIAL MANUAL DIFFERENTIAL (MANUAL DIFF)
[2023-10-26 06:45] LABS: Chloride 100 mmol/L (98-107)
[2023-10-26 06:46] LABS: Potassium 4.4 mmoL/L (3.5-5.1); Sodium 137 mmol/L (136-145)
[2023-10-26 06:48] LABS: Blood Urea Nitrogen 53 mg/dl (9-20); Creatinine Clearance Estimated 12 mL/min (50-200); Estimated Glomerular Filt Rate 15 ml/min (>60); GFR (African American) 18 ML/MIN (>60)
[2023-10-26 06:49] LABS: Alanine Aminotransferase 165 U/L (12-78); Albumin Level 3.3 g/dl (3.5-5.0); Albumin/Globulin Ratio 1.3 (1.1-1.8); Alkaline Phosphatase 93 U/L (38-126); Anion Gap 11.4 mEq/L (5-15); Aspartate Amino Transferase 144 U/L (17-59); Bilirubin,Total 1.1 mg/dl (0.2-1.3); Calcium 8.4 mg/dl (8.4-10.2); Carbon Dioxide 30 mmol/L (22.0-30.0); Globulin 2.5 g/dL (1.3-3.2); Glucose 143 mg/dl (74-100); Total Protein,Serum 5.8 g/dl (6.3-8.2)
[2023-10-26 07:23] LABS: Lymphocytes % 15 % (10-50); Monocytes % 2 % (2-9); Neutrophils % 83 % (42-76); RBC Morphology Normal; Total Cells Counted 100
[2023-10-26 07:24] LABS: Platelet Estimate Slight Decrease
--- NOTE | 2023-10-26 08:04 | XR_ITS ---
PROCEDURE INFORMATION: Exam: XR Chest Exam date and time: 10/26/2023 8:28 AM Age: 88 years old Clinical indication: Other: Increased o2 requirement; Additional info: Incrreased o2 requirement TECHNIQUE: Imaging protocol: Radiologic exam of the chest. Views: 1 view. COMPARISON: CR XR CHEST PORTABLE PICC PLAC 10/24/2023 3:18 PM FINDINGS: Tubes, catheters and devices: An ICD generator overlies and obscures the lateral upper left chest and axilla with atrial, ventricular and coronary sinus wire leads. There has been exchange of a right-sided peripherally inserted central catheter for a shorter catheter with its tip overlying the right low axilla. A right internal jugular central venous catheter is noted with its tip projected over the superior vena cava. Lungs: No consolidation. Pleural spaces: Unremarkable. No pleural effusion. No pneumothorax. Heart/Mediastinum: Unremarkable. No cardiomegaly. Bones/joints: Unremarkable. IMPRESSION: Support lines and catheters in place as described.
[2023-10-26] MEDS: AMIODARONE 400 MG 200 EACH PO ×2 (08:36→21:11)
[2023-10-26] MEDS: APIXABAN 5MG TABLET 2.5 MG PO ×2 (08:36→21:11)
[2023-10-26] MEDS: *PAT OWN MED* PANTOPRAZOLE 40MG TABLET 40 MG PO (08:36)
[2023-10-26] MEDS: FLUTICASONE PROP 50MCG NASAL SPRAY 16GM 1 SPRAY NS (08:36)
[2023-10-26] MEDS: ACETAMINOPHEN 325MG TAB 650 MG PO (08:54)
[2023-10-26 08:57] LABS: Adenovirus,PCR Not Detected (NotDetected); Coronavirus 19, PCR Not Detected (NotDetected); Coronavirus 229E Not Detected (NotDetected); Coronavirus NL63 Not Detected (NotDetected); Coronavirus OC43 Not Detected (NotDetected); Coronovirus HKU1,PCR Not Detected (NotDetected); Human Metapneumovirus Not Detected (NotDetected); Influenza A, PCR Not Detected (NotDetected); Influenza AH1, 2009 Not Detected (NotDetected); Influenza AH1, PCR Not Detected (NotDetected); Influenza AH3,PCR Not Detected (NotDetected); Influenza B, PCR Not Detected (NotDetected); Parainfluenza 1, PCR Not Detected (NotDetected); Parainfluenza 2, PCR Not Detected (NotDetected); Parainfluenza 3, PCR Not Detected (NotDetected); Parainfluenza 4, PCR Not Detected (NotDetected); Respiratory Syncytial Virus Not Detected (NotDetected); Rhinovirus/Enterovirus Not Detected (NotDetected)
--- NOTE | 2023-10-26 09:10 | P.CONPHA_ITS ---
Pharmacy Consult Date: 10/26/23 Time: 09:12 Referring provider: DR YANES Reason for Consult:: VANCOMYCIN DOSING CONSULT Allergies Allergy/AdvReac Type Severity Reaction Status Date / Time No Known Allergies Allergy Verified 09/16/23 10:10 Home Medications Medication Instructions Recorded Confirmed Type rosuvastatin 40 mg tablet (Crestor) 40 mg PO DAILY Cholesterol 07/22/23 10/21/23 History apixaban 5 mg tablet (Eliquis) 2.5 mg PO BID #60 tabs 07/24/23 10/21/23 Rx amiodarone 400 mg tablet 200 mg PO BID #60 tabs 07/29/23 10/21/23 Rx sacubitril 24 mg-valsartan 26 mg 1 tab PO BID #60 tabs 08/01/23 10/21/23 Rx tablet (Entresto) metoprolol succinate 25 mg 25 mg PO HS 08/19/23 10/21/23 History tablet,extended release 24 hr pantoprazole 40 mg tablet,delayed 40 mg PO DAILY #30 tabs 09/16/23 10/21/23 Rx release dapagliflozin propanediol 10 mg 10 mg PO DAILY 10/21/23 10/21/23 History tablet (Farxiga) furosemide 80 mg tablet 40 mg PO DAILYP PRN Edema 10/21/23 10/21/23 History New Prescriptions to Start Prescriptions: Height: 1.7 m Weight: 63.304 kg Laboratory Results:: Laboratory Results - last 24 hr 10/25/23 18:05: Sodium 134 L, Potassium 3.6, Chloride 94 L, Carbon Dioxide 32 H, Anion Gap 11.6, BUN 54 H, Creatinine 4.00 H, Estimated Creat Clear 12, Estimated GFR 14 L*, Est GFR ( Amer) 17 L*, Glucose 176 H D, Calcium 8.6 10/26/23 06:20: WBC 15.0 H D, RBC 3.21 L, Hgb 9.4 L, Hct 28.8 L, MCV 89.8, MCH 29.3, MCHC 32.7, RDW 15.7, Plt Count 88 L, MPV 10.7 H, Neut % (Auto) 75.9, Lymph % (Auto) 17.7, [place] % (Auto) 5.7, Eos % (Auto) 0.4, Baso % (Auto) 0.2, Neut # (Auto) 11.4 H, Lymph # (Auto) 2.7, [place] # (Auto) 0.9, Eos # (Auto) 0.1, Baso # (Auto) 0.0, Total Counted 100, Neutrophils % (Manual) 83 H, Lymphocytes % (Manual) 15, Monocytes % (Manual) 2, Platelet Estimate Slight decrease, RBC Morphology Normal, Sodium 137, Potassium 4.4 D, Chloride 100, Carbon Dioxide 30, Anion Gap 11.4, BUN 53 H, Creatinine 3.80 H, Estimated Creat Clear 12, Estimated GFR 15 L*, Est GFR ( Amer) 18 L*, Glucose 143 H, Calcium 8.4, Magnesium 2.0, Total Bilirubin 1.1, AST 144 H D, ALT 165 H, Alkaline Phosphatase 93, Total Protein 5.8 L, Albumin 3.3 L, Globulin 2.5, Albumin/Globulin Ratio 1.3 Medical History: Medical History (Updated 10/22/23 @ 10:35 by Amara Duncan APRN) Arrhythmia Atrial fibrillation Atypical angina Bilateral lower extremity edema CAD (coronary artery disease) Cardiomyopathy Dyspnea Elevated troponin Fractured atrial pacemaker lead wire HFrEF (heart failure with reduced ejection fraction) History of cardioversion History of pacemaker Hyperlipidemia Hypokalemia Mitral valve insufficiency NSTEMI (non-ST elevated myocardial infarction) PAC (premature atrial contraction) Presence of combination internal cardiac defibrillator (ICD) and pacemaker Pulmonary HTN PVC (premature ventricular contraction) Shortness of Breath Systolic heart failure Trigeminy Assessment and Plan Assessment and plan all Dx Assessment and Plan for all problems:: Pharmacokinetic dosing service Objective: Age: 88 yo Serum creatinine: 3.8 mg/dL Height: 66.9 Inches Weight (kg): 63.304 Diagnosis: SEPSIS Assessment: IBW (kg): 65.87 Dosing wt(kg): 63.304 Estimated Creatinine clearance (ml/min): 12.5 CRCL method: Cockcroft and Gault using ibw(default). Drug selected: Vancomycin Loading dose (mg): 1250 MG Vd (liters): 44.3 (factor used: 0.7 L/kg) Max (hr-1): 0.015 Half life (hrs): 46.21 CLvanco=?? 0.664 L/hr Recommended dose: 1000 mg Interval: 72 hrs Infusion time (hrs): 2.0 Predicted peak (mcg/mL): 33.7 Predicted trough (mcg/mL): 11.79 Total body weight is being used for vancomycin dosing. Recommendations: Give Vancomycin 1000 mg q 72 hrs with an expected Cpeak of 33.7 mcg/ml and an expected Ctrough of 11.79 mcg/ml TO START 10/29/23 AT 09:00, LOADING DOSE OF VANCOMYCIN 1250 MG IV ONCE GIVEN 10/26/23 AT 09:00. AUC 0-24 /DUONG Data: DUONG 0.5 mcg/mL:?? AUC/DUONG:? 1004.0 DUONG 1.0 mcg/mL:?? AUC/DUONG:? 502.0 --------- DUONG 1.5 mcg/mL:?? AUC/DUONG:? 334.7 DUONG 2.0 mcg/mL:?? AUC/DUONG:? 251.0 Thank you for the consult
[2023-10-26] MEDS: CEFEPIME HCL 1 GM in 0.9 % SODIUM CHLORIDE 50 ML IV ×2 (09:20→21:11)
[2023-10-26] MEDS: VANCOMYCIN/WATER FOR INJ (PEG) 1.25 GM/250 ML PIGGYBACK IV (09:28)
--- NOTE | 2023-10-26 09:53 | EXP.ACUTE.PN ---
Subjective *Date: 10/26/23 *Time: 15:13 Interval history: Morning rounds, patient in some distress with tachycardia and chills. Had a good day yesterday, interacted well with family. Increased oxygen requirement this morning on 3 L. Adequate urine output yesterday 1 L. Family at bedside. Tolerating p.o. liquids, not eating very well. Had a large bowel movement however in the past 24-hour. Medical Exam Vital signs and Labs for Last 24 Hours: Vital Signs Temp Pulse Pulse Resp BP Pulse Ox O2 Del Method 10/26/23 08:00 110 H 10/26/23 08:00 105 H 24 113/59 L 98 Nasal Cannula 10/26/23 07:53 98.0 F 10/26/23 06:10 118 H 10/26/23 06:10 115 H 10/26/23 06:10 95 Nasal Cannula 10/26/23 06:43 Nasal Cannula 10/26/23 06:00 76 21 109/62 L 94 L Nasal Cannula 10/26/23 04:00 100 H 10/26/23 00:00 100 H 10/26/23 04:00 98.1 F 10/26/23 05:00 Nasal Cannula 10/26/23 04:00 106 H 14 133/78 97 Nasal Cannula 10/26/23 04:00 Nasal Cannula 10/26/23 03:00 Nasal Cannula 10/26/23 02:00 100 H 20 115/62 98 Nasal Cannula 10/26/23 01:00 Nasal Cannula 10/26/23 00:00 97.9 F 10/25/23 23:00 Nasal Cannula 10/25/23 22:00 97 H 16 99/54 L 94 L Nasal Cannula 10/25/23 23:16 88 10/25/23 23:16 90 10/25/23 20:00 100 H 10/25/23 20:00 108 H 16 105/57 L 96 Room Air 10/25/23 21:00 Room Air 10/25/23 20:00 Room Air 10/25/23 20:00 98.0 F 10/25/23 18:59 Nasal Cannula 10/25/23 18:58 91 H 10/25/23 18:58 93 H 10/25/23 18:22 Room Air 10/25/23 17:00 Room Air 10/25/23 18:00 96 H 16 104/56 L 95 Room Air 12/30/23 16:00 100 H 10/25/23 16:00 88 L Room Air 10/25/23 16:00 97 H 17 86/55 L 88 L Room Air 10/25/23 15:59 98.0 F 10/25/23 15:00 Room Air 10/25/23 13:00 Nasal Cannula 10/25/23 14:00 89 15 107/53 L 89 L Room Air 10/25/23 12:00 100 H 10/25/23 12:00 94 H 16 109/58 L 94 L Nasal Cannula 10/25/23 11:28 100 H 10/25/23 11:28 101 H 10/25/23 11:28 92 L Nasal Cannula 10/25/23 11:00 Nasal Cannula 10/25/23 11:00 100 H 14 106/49 L 92 L Nasal Cannula 10/25/23 10:00 96 H 19 104/53 L 93 L Nasal Cannula O2 Flow Rate FiO2 10/26/23 08:00 10/26/23 08:00 3 10/26/23 07:53 10/26/23 06:10 10/26/23 06:10 10/26/23 06:10 10/26/23 06:43 3 10/26/23 06:00 3 10/26/23 04:00 10/26/23 00:00 10/26/23 04:00 10/26/23 05:00 3 10/26/23 04:00 3 10/26/23 04:00 3 10/26/23 03:00 3 10/26/23 02:00 3 10/26/23 01:00 3 10/26/23 00:00 10/25/23 23:00 3 10/25/23 22:00 3 10/25/23 23:16 10/25/23 23:16 10/25/23 20:00 10/25/23 20:00 10/25/23 21:00 10/25/23 20:00 10/25/23 20:00 10/25/23 18:59 3 32 10/25/23 18:58 10/25/23 18:58 10/25/23 18:22 10/25/23 17:00 10/25/23 18:00 10/25/23 16:00 10/25/23 16:00 10/25/23 16:00 10/25/23 15:59 10/25/23 15:00 10/25/23 13:00 1 10/25/23 14:00 10/25/23 12:00 10/25/23 12:00 1 10/25/23 11:28 10/25/23 11:28 10/25/23 11:28 3 10/25/23 11:00 1 10/25/23 11:00 1 10/25/23 10:00 1 Intake and Output 10/25/23 10/26/23 10/26/23 23:59 07:59 15:59 Intake Total 467 / 1696.5 260 / 260 Output Total 575 / 2640 300 / 300 Balance -108 / -943.5 -40 / -40 Intake: Intake, Oral Amount 457 / 1594 240 / 240 Intake, Total IV Amount 20 / 20 Milrinone Lactate 20 mg In 0.9 20 / 20 % Sodium Chloride 80 ml @ 0.125 MCG/KG/MIN 2.501 mls/hr IV . Q24H [facility] Rx#:[id number] Output: Output, Urine Amount 575 / 925 300 / 300 Other: Number of Unmeasured Voids 0 Number of Bowel Movements 2 Weight 63.304 kg 63.304 kg Patient Weight 10/26/23 23:59 Weight 63.304 kg Laboratory Results - last 24 hr 10/25/23 18:05: Sodium 134 L, Potassium 3.6, Chloride 94 L, Carbon Dioxide 32 H, Anion Gap 11.6, BUN 54 H, Creatinine 4.00 H, Estimated Creat Clear 12, Estimated GFR 14 L*, Est GFR ( Amer) 17 L*, Glucose 176 H D, Calcium 8.6 10/26/23 06:20: WBC 15.0 H D, RBC 3.21 L, Hgb 9.4 L, Hct 28.8 L, MCV 89.8, MCH 29.3, MCHC 32.7, RDW 15.7, Plt Count 88 L, MPV 10.7 H, Neut % (Auto) 75.9, Lymph % (Auto) 17.7, [place] % (Auto) 5.7, Eos % (Auto) 0.4, Baso % (Auto) 0.2, Neut # (Auto) 11.4 H, Lymph # (Auto) 2.7, [place] # (Auto) 0.9, Eos # (Auto) 0.1, Baso # (Auto) 0.0, Total Counted 100, Neutrophils % (Manual) 83 H, Lymphocytes % (Manual) 15, Monocytes % (Manual) 2, Platelet Estimate Slight decrease, RBC Morphology Normal, Sodium 137, Potassium 4.4 D, Chloride 100, Carbon Dioxide 30, Anion Gap 11.4, BUN 53 H, Creatinine 3.80 H, Estimated Creat Clear 12, Estimated GFR 15 L*, Est GFR ( Amer) 18 L*, Glucose 143 H, Calcium 8.4, Magnesium 2.0, Total Bilirubin 1.1, AST 144 H D, ALT 165 H, Alkaline Phosphatase 93, Total Protein 5.8 L, Albumin 3.3 L, Globulin 2.5, Albumin/Globulin Ratio 1.3 I & O for Labs for Last 24 Hours: Intake & Output 10/23/23 10/24/23 10/25/23 10/26/23 23:59 23:59 23:59 23:59 Intake Total 324 / 376 1681.000 / 2821.555 7253.5 / 1696.5 260 / 260 Output Total 1615 / 1740 4639 / 4714 2640 / 2640 300 / 300 Balance -1291 / -1364 -2958.000 / -3020.500 -948.5 / -943.5 -40 / -40 Weight 66.7 kg 63.548 kg 61.915 kg 63.304 kg Constitutional: Present mild distress, average body habitus and chronically ill appearing Head: Present atraumatic ENT: Present normal exam Comment:: Sheath in right IJ Respiratory: Present normal respiratory effort; Absent accessory muscle use, rhonchi, wheezes or crackles Cardiac: Present Regular Rhythm, Systolic Murmur and Tachycardia GI: Present soft and normal bowel sounds; Absent distention or tenderness Extremities: Present normal inspection and full ROM; Absent edema Comment:: Midline and right upper arm Skin: Present intact; Absent erythema Neuro: Present Grossly Intact, alert, awake and moves all extremities Assessment and Plan *Assessment and plan (1) Sepsis: Status: Acute Category: Medical Code(s): A41.9 - Sepsis, unspecified organism (2) HFrEF (heart failure with reduced ejection fraction): Status: Acute Category: Medical Code(s): I50.20 - Unspecified systolic (congestive) heart failure (3) TIO (acute kidney injury): Status: Acute Category: Medical Code(s): N17.9 - Acute kidney failure, unspecified (4) Acute hypokalemia: Status: Acute Category: Medical Code(s): E87.6 - Hypokalemia (5) Constipated: Status: Acute Qualifiers: Constipation type: unspecified constipation type Qualified Code(s): K59.00 - Constipation, unspecified Category: Medical Code(s): K59.00 - Constipation, unspecified (6) Tobacco dependence: Status: Acute Category: Medical Code(s): F17.200 - Nicotine dependence, unspecified, uncomplicated Plan 88-year-old male with PMHx of atrial fibrillation on anticoagulation, COPD not on home oxygen, CHF status post pacemaker placement, CAD, with who presents emergency department for evaluation of constipation. Patient has had a bowel movement in [address] imaging reviewed, shows small volume ascites but no obvious bowel obstruction or other significant pathology. He has no significant stool burden. labs are obatained and there are significant for TIO and critical hypokalemia. Discussion made with ER provider. Agreed for admission. Patient's kidney function worsening today. Discussed case with cardiology, taken for right heart cath. Found to be in worsening heart failure with component of cardiogenic shock. Concerned that elevation in liver enzymes and creatinine are related to hepatic congestion and cardiorenal syndrome. Continues to require ICU level care given milrinone drip. Meeting SIRS criteria today with tachycardia, leukocytosis of 15 (up from 9.2 yesterday). Repeat chest x-ray obtained, no new findings. Urine and blood cultures obtained. Initiated on broad-spectrum antibiotics with vancomycin and cefepime IV. Monitoring for toxicity, renally dosing. Will continue antibiotics for at least 48 hours pending culture results. In regard to tachycardia, patient is in SVT. Discussed case with cardiology, will initiate amiodarone drip and IV bolus. 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 Fluid status -4.5 L since initiating Lasix. Holding Lasix today in the setting of SIRS Strict I's and O's Oxygen saturation goal greater than 90%, currently on 3L. Wean as tolerated Continue amiodarone 200 mg p.o. twice daily, Eliquis 2.5 mg p.o. twice daily, statin disengaged BiV AICD due to DNR status yesterday Strict monitoring of electrolytes given diuresis. Repeat BMP this afternoon, CBC and magnesium and CMP ordered for the morning Potassium 4.4, holding on oral replacement. Acute on Chronic kidney disease stage III -Creatinine baseline 2.00 06/2023 -Creatinine 3.8, BUN 53. Essentially stable from yesterday. - caution with nephrotoxic's Transaminitis -AST 144, improved from 210 yesterday. ALT up to 165, 105 yesterday. Bilirubin normal at 1.1. secondary to hepatic congestion. CMP ordered for the morning COPD: DuoNebs every 6 hours prn. cont. Trelegy 100 inhaler. Tobacco dependance: nicotine patch. Smoking cessation advised, patient continues to smoke prior to admission DNR Cardiac diet ICU/Critical care attestation This patient is critically ill with 40 minutes devoted solely to this patient managing life/organ supporting interventions that required physician assessment. This includes time spent making adjustments in oxygen delivery, IV fluid administration, antibiotic dosing, adjustments of medications, discussion of patient with consultants and other care providers as well as updating patient and/or family (if patient by virtue of his/her condition is unable to participate in decision making). This does not include time spent performing separately billed procedures. Time is not concurrent with that of other providers.
[2023-10-26] MEDS: METOPROLOL SUCCINATE XL 25MG TABLET 25 MG PO ×2 (10:20→21:12)
[2023-10-26 10:51] LABS: Microscopic, Urine URINE MICROSCOPIC (MICROSCOPIC)
[2023-10-26 10:56] LABS: Appearance,Urine CLEAR (Clear); Bilirubin,Urine Negative (Negative); Blood, Urine 3+ (Negative); Color,Urine YELLOW (Yellow); Glucose,Urine (UA) 3+ (Negative); Ketones,Urine Negative (Negative); Leukocyte Esterase,Urine TRACE (Negative); Nitrate,Urine Negative (Negative); PH,Urine 7.5 (5.0-8.5); Protein,Urine 2+ (Negative); Specific Gravity, Urine 1.015 (1.005-1.030)
--- NOTE | 2023-10-26 10:56 | PC.NURSE ---
NOTIFIED MD CAM THAT PT'S HR IS 150-160'S NOW WITH CHEST PAIN OF ENTIRE CHEST NOT JUST ONE SIDE, MD CAM ORDERED AMIO BOLUS OF 150MG OVER 10 MINUTES AND THEN STANDARD AMIO DRIP AFTER BOLUS COMPLETE, PHARMACY REQUISITION SENT AND CALLED STACIE TO BRING BOLUS AND DRIP
[2023-10-26 11:08] LABS: Bacteria,Urine 3+ /lpf; RBC,Urine 20-50 #/hpf (0-3); Squamous Epithelial Cell,Urine Occasional #/hpf (0-5)
[2023-10-26] MEDS: AMIODARONE HCL 150 MG in DEXTROSE 5 % IN WATER 100 ML 618 MG IV (11:08)
[2023-10-26] MEDS: MORPHINE 2MG/ML SYRINGE 2 MG IV (11:08)
[2023-10-26] MEDS: AMIODARONE HCL 900 MG in DEXTROSE 5 % IN WATER 500 ML 33.2999999999999972 MG IV (11:13)
[2023-10-26] MEDS: MILRINONE LACTATE 20 MG in 0.9 % SODIUM CHLORIDE 80 ML 2.5 MG IV (11:50)
--- NOTE | 2023-10-26 12:02 | PC.NURSE ---
HR NOW 110-120'S, BP 103/53 (69), PT RESTING IN BED NO CHEST PAIN VERBALIZED WHEN ASKED, FAMILY AT BEDSIDE AND CALL LIGHT WITHIN REACH
--- NOTE | 2023-10-26 15:11 | PC.NURSE ---
RIGHT IJ SHEATH REMOVED BY MD YANES AT BEDSIDE, PRESSURE HELD, AND THEN DRESSED WITH OCCLUSIVE DRESSING
--- NOTE | 2023-10-26 17:30 | PC.NURSE ---
decreased amio drip to 0.5mg/min per emar
--- NOTE | 2023-10-26 17:30 | PC.NURSE ---
decreased amio drip to 0.5mg/hr per emar
[2023-10-26 18:32] LABS: Chloride 98 mmol/L (98-107); Sodium 133 mmol/L (136-145)
[2023-10-26 18:35] LABS: Blood Urea Nitrogen 57 mg/dl (9-20); Calcium 8.3 mg/dl (8.4-10.2); Carbon Dioxide 20 mmol/L (22.0-30.0); Creatinine Clearance Estimated 12 mL/min (50-200); Estimated Glomerular Filt Rate 14 ml/min (>60); GFR (African American) 17 ML/MIN (>60); Glucose 190 mg/dl (74-100)
[2023-10-26 18:48] LABS: Anion Gap 20.6 mEq/L (5-15); Potassium 5.6 mmoL/L (3.5-5.1)
[2023-10-26] MEDS: LEVALBUTEROL 1.25MG/3ML NEB 1.25 MG IH (20:21)
[2023-10-27] VITALS (22 sets, daily range): BP systolic 84–105; BP diastolic 40–63; PULSE 80–118; RESP 14–20; TEMP 36.6–37.2; O2SAT 92–100; BMI 21.9
--- NOTE | 2023-10-27 00:45 | PC.NURSE ---
Called GEOVANNA Luis concerning patients urinary output as patient has had no output this shift thus far, orders recieved to bladder scan patient now and at 6am. Also discussed patients blood pressure continuing to decline despite milirone GTT, have titrated milirone per order Toby MACHINE ERECTOR states to titrate per order.
--- NOTE | 2023-10-27 00:55 | PC.NURSE ---
Bladder scanner shows 35ML
--- NOTE | 2023-10-27 02:00 | PC.NURSE ---
Oxygen decreased to 3LNC. sats 99%
--- NOTE | 2023-10-27 04:03 | PC.NURSE ---
Oxygen decreased to 2LNC stating 96%
--- NOTE | 2023-10-27 05:12 | PC.NURSE ---
Patient c/o nasal dryness, Flonase was administered per Toby, SOIL SURVEYOR. Patient then started vomiting. Patient had 150 out in emesis. Patient had an ensure at 1100 lastnight and the vomit seems to be the ensure. Patient has hypoactive bowel tones with auscultation. Tymphany is noted with percussion. Patient states he has not been passing gas, abdomen is distended. Toby,SOIL SURVEYOR notified of findings and states he will order a KUB
--- NOTE | 2023-10-27 05:23 | XR_ITS ---
PROCEDURE INFORMATION: Exam: XR Abdomen Exam date and time: 10/27/2023 6:19 AM Age: 88 years old Clinical indication: Vomiting; Additional info: Vomiting, distended abdomen TECHNIQUE: Imaging protocol: Radiologic exam of the abdomen. Views: Frontal supine view of the abdomen. 1 View. COMPARISON: CT ABDOMEN PELVIS WO CON 10/20/2023 11:08 PM FINDINGS: Gastrointestinal tract: Some air is seen in the stomach and colon which is mildly distended. Bones/joints: Unremarkable. IMPRESSION: Some air is seen in the stomach and colon which is mildly distended. This is a nonspecific bowel gas pattern, no definite ileus or obstruction present..
[2023-10-27 07:43] LABS: Basophils % 0.2 % (0.1-2.0); Eosinophils # 0.1 K/mm3 (0.0-0.4); Eosinophils % 0.2 % (0.1-12.0); Hematocrit 30.2 % (42.0-52.0); Hemoglobin 9.9 g/dL (14.1-18.0); Lymphocytes # 4.2 K/mm3 (0.7-4.5); Lymphocytes % 18.4 % (10-50); Mean Corpuscular HGB Conc 32.7 g/dL (31.8-35.4); Mean Corpuscular Hemoglobin 29.3 pg (27.0-31.2); Mean Corpuscular Volume 89.6 fl (80-94); Mean Platelet Volume 12.5 fl (7.4-10.4); Monocytes # 1.1 K/mm3 (0.1-1.0); Neutrophils # 17.5 K/mm3 (1.8-7.8); Neutrophils % 76.2 % (37.0-80.0); Platelet Count 59 K/mm3 (142-424); Red Blood Count 3.37 M/mm3 (4.60-6.20); Red Cell Distribution Width 15.7 % (11.5-17.5)
[2023-10-27 07:45] LABS: MANUAL DIFFERENTIAL MANUAL DIFFERENTIAL (MANUAL DIFF)
[2023-10-27 07:53] LABS: Magnesium 2.3 mg/dl (1.6-2.3)
[2023-10-27 07:59] LABS: Burr Cells 1+; Hypochromasia 1+; Lymphocytes % 21 % (10-50); Monocytes % 5 % (2-9); Neutrophils % 74 % (42-76); Ovalocytes 1+; Total Cells Counted 100
[2023-10-27 08:00] LABS: Platelet Estimate Moderate Decrease
--- NOTE | 2023-10-27 08:01 | P.PN_ITS ---
Subjective *Date: 10/27/23 *Time: 14:51 Interval history: Patient developed some nausea and vomiting this morning. Afebrile. Shortness of breath stable. Not feeling significantly better. Had several bowel movements yesterday. Urine output decreasing. Medical Exam Vital signs and Labs for Last 24 Hours: Vital Signs Temp Pulse Pulse Resp BP Pulse Ox O2 Del Method 10/27/23 07:57 97.9 F 10/27/23 04:00 100 H 10/27/23 04:00 98.1 F 10/27/23 04:00 103 H 18 84/50 L 96 Nasal Cannula 10/27/23 04:00 103 H 10/27/23 03:00 Nasal Cannula 10/27/23 00:00 80 10/27/23 02:00 100 H 20 97/55 L 99 Nasal Cannula 10/27/23 00:00 90 10/26/23 23:55 97.1 F L 10/26/23 23:24 Nasal Cannula 10/26/23 20:10 98 H 10/26/23 20:00 100 H 10/26/23 22:00 100 H 18 82/51 L 99 Nasal Cannula 10/26/23 20:00 80 10/26/23 20:00 97.6 F 100 H 18 94/57 L 99 Nasal Cannula 10/26/23 20:00 100 H 10/26/23 18:11 Nasal Cannula 10/26/23 18:00 90 16 89/48 L 97 Nasal Cannula 10/26/23 16:47 Nasal Cannula 10/26/23 16:00 100 H 10/26/23 16:00 93 L Nasal Cannula 10/26/23 16:00 107 H 16 84/54 L 97 Nasal Cannula 10/26/23 14:00 105 H 19 86/49 L 95 Nasal Cannula 10/26/23 15:12 Nasal Cannula 10/26/23 12:00 120 H 10/26/23 12:00 118 H 23 103/53 L 95 Nasal Cannula 10/26/23 12:00 97.8 F 10/26/23 11:00 160 H 10/26/23 09:00 134 H 10/26/23 10:00 130 H 31 H 107/66 L 96 Nasal Cannula 10/26/23 12:14 Nasal Cannula 10/26/23 11:00 Nasal Cannula 10/26/23 09:00 Nasal Cannula 10/26/23 09:00 94 L Nasal Cannula O2 Flow Rate 10/27/23 07:57 10/27/23 04:00 10/27/23 04:00 10/27/23 04:00 2 10/27/23 04:00 10/27/23 03:00 3 10/27/23 00:00 10/27/23 02:00 4 10/27/23 00:00 10/26/23 23:55 10/26/23 23:24 4 10/26/23 20:10 10/26/23 20:00 10/26/23 22:00 4 10/26/23 20:00 10/26/23 20:00 4 10/26/23 20:00 10/26/23 18:11 4 10/26/23 18:00 4 10/26/23 16:47 4 10/26/23 16:00 10/26/23 16:00 4 10/26/23 16:00 4 10/26/23 14:00 4 10/26/23 15:12 4 10/26/23 12:00 10/26/23 12:00 4 10/26/23 12:00 10/26/23 11:00 10/26/23 09:00 10/26/23 10:00 4 10/26/23 12:14 4 10/26/23 11:00 4 10/26/23 09:00 4 10/26/23 09:00 4 Intake and Output 10/26/23 10/27/23 10/27/23 23:59 07:59 15:59 Intake Total 176.708 / 873.625 357.192 / 357.192 Balance 176.708 / 173.625 357.192 / 357.192 Intake: Intake, Oral Amount 150 / 630 240 / 240 Intake, Total IV Amount 26.708 / 243.625 117.192 / 117.192 Amiodarone HCl 900 mg In 84 / 84 Dextrose 5 % in Water 500 ml @ 33.3 mls/hr IV .[id number] [facility] Rx# :[id number] Milrinone Lactate 20 mg In 0.9 14 / 14 % Sodium Chloride 80 ml @ 0.125 MCG/KG/MIN 2.501 mls/hr IV . Q24H [facility] Rx#:[id number] Other: Weight 63.276 kg Patient Weight 10/27/23 23:59 Weight 63.276 kg Laboratory Results - last 24 hr 10/26/23 08:50: Chlamy pneumoniae PCR TNP, Adenovirus (PCR) Not detected, B. pertussis DNA (PCR) TNP, Coronavirus OC43 (PCR) Not detected, Coronavirus HKU1 (PCR) Not detected, Coronavirus 229E (PCR) Not detected, SARS-CoV-2 (PCR) Not detected, Coronavirus NL63 (PCR) Not detected, Human Metapneumovir PCR Not detected, Influenza A (H1) PCR Not detected, Influ A (H1N1/09) PCR Not detected, Influenza A (H3) PCR Not detected, Influenza Type A (PCR) Not detected, Influenza Type B (PCR) Not detected, M. pneumoniae (PCR) TNP, Parainfluenza 1 (PCR) Not detected, Parainfluenza 2 (PCR) Not detected, Parainfluenza 3 (PCR) Not detected, Parainfluenza 4 (PCR) Not detected, RSV (PCR) Not detected, Entero/Rhino (PCR) Not detected 10/26/23 10:46: Urine Color Yellow, Urine Appearance Clear, Urine pH 7.5, Ur Specific [place] 1.015, Urine Protein 2+, Urine Glucose (UA) 3+, Urine Ketones Negative, Urine Blood 3+, Urine Nitrate Negative, Urine Bilirubin Negative, Urine Urobilinogen 1.0, Ur Leukocyte Esterase Trace, Urine RBC 20-50, Urine WBC 5-10, Ur Squamous Epith Cells Occasional, Urine Bacteria 3+ 10/26/23 18:02: Sodium 133 L, Potassium 5.6 H D, Chloride 98, Carbon Dioxide 20 L, Anion Gap 20.6 H, BUN 57 H, Creatinine 4.00 H, Estimated Creat Clear 12, Estimated GFR 14 L*, Est GFR ( Amer) 17 L*, Glucose 190 H D, Calcium 8.3 L 10/27/23 07:28: WBC 23.0 H* D, RBC 3.37 L, Hgb 9.9 L, Hct 30.2 L, MCV 89.6, MCH 29.3, MCHC 32.7, RDW 15.7, Plt Count 59 L D, MPV 12.5 H, Neut % (Auto) 76.2, Lymph % (Auto) 18.4, [place] % (Auto) 5.0, Eos % (Auto) 0.2, Baso % (Auto) 0.2, Neut # (Auto) 17.5 H, Lymph # (Auto) 4.2, [place] # (Auto) 1.1 H, Eos # (Auto) 0.1, Baso # (Auto) 0.0, Total Counted 100, Neutrophils % (Manual) 74, Lymphocytes % (Manual) 21, Monocytes % (Manual) 5, Platelet Estimate Moderate decrease, Hypochromasia 1+, Ovalocytes 1+, Padmini Cells 1+, Magnesium 2.3 D I & O for Labs for Last 24 Hours: Intake & Output 10/24/23 10/25/23 10/26/23 10/27/23 23:59 23:59 23:59 23:59 Intake Total 1681.000 / 3235.426 8099.5 / 1696.5 535.625 / 873.625 357.192 / 357.192 Output Total 4639 / 4714 2640 / 2640 700 / 700 Balance -2958.000 / -3020.500 -948.5 / -943.5 -164.375 / 173.625 357.192 / 357.192 Weight 63.548 kg 61.915 kg 63.304 kg 63.276 kg Microbiology Reports for the Last 24 Hours: Microbiology 10/23/23 Unknown Urine,Catheterized Urine Culture - Final Constitutional: Present mild distress, average body habitus and chronically ill appearing Head: Present atraumatic ENT: Present normal exam Comment:: Sheath in right IJ Respiratory: Present normal respiratory effort; Absent accessory muscle use, rhonchi, wheezes or crackles Cardiac: Present Regular Rhythm, Systolic Murmur and Tachycardia GI: Present soft and diminished bowel sounds; Absent distention or tenderness Extremities: Present normal inspection and full ROM; Absent edema Comment:: Midline and right upper arm Skin: Present intact; Absent erythema Neuro: Present Grossly Intact, alert, awake and moves all extremities Assessment and Plan *Assessment and plan (1) Sepsis: Status: Acute Category: Medical Code(s): A41.9 - Sepsis, unspecified organism (2) HFrEF (heart failure with reduced ejection fraction): Status: Acute Category: Medical Code(s): I50.20 - Unspecified systolic (congestive) heart failure (3) TIO (acute kidney injury): Status: Acute Category: Medical Code(s): N17.9 - Acute kidney failure, unspecified (4) Transaminitis: Status: Acute Category: Medical Code(s): R74.01 - Elevation of levels of liver transaminase levels (5) Acute hypokalemia: Status: Acute Category: Medical Code(s): E87.6 - Hypokalemia (6) Constipated: Status: Acute Qualifiers: Constipation type: unspecified constipation type Qualified Code(s): K59.00 - Constipation, unspecified Category: Medical Code(s): K59.00 - Constipation, unspecified (7) Tobacco dependence: Status: Acute Category: Medical Code(s): F17.200 - Nicotine dependence, unspecified, uncomplicated Plan 88-year-old male with PMHx of atrial fibrillation on anticoagulation, COPD not on home oxygen, CHF status post pacemaker placement, CAD, with who presents emergency department for evaluation of constipation. Patient has had a bowel movement in [address] imaging reviewed, shows small volume ascites but no obvious bowel obstruction or other significant pathology. He has no significant stool burden. labs are obatained and there are significant for TIO and critical hypokalemia. Discussion made with ER provider. Agreed for admission. Patient's kidney function remains abnormal. Continuing milrinone for cardiogenic shock. Liver enzymes worse today. On 2 L nasal cannula. Continues to require inpatient management. Discussed consulting hospice today. Family interested. Problems addressed as follows: SIRS vs Sepsis -Patient remains tachycardic, leukocytosis up to 23,000. Urine and blood culture still pending. Continue cefepime and vancomycin renally dosed. -KUB obtained showing nonspecific bowel gas pattern, no grecia obstruction. Concern for ileus -Bowel rest today - Will continue antibiotics for at least 48 hours pending culture results. 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 Continuing to hold Lasix. strict I's and O's Oxygen saturation goal greater than 90%, currently on 2L. Wean as tolerated Continue amiodarone 200 mg p.o. twice daily, Eliquis 2.5 mg p.o. twice daily, statin disengaged BiV AICD due to DNR status yesterday Strict monitoring of electrolytes given diuresis. Repeat CMP this afternoon, CBC and magnesium and CMP ordered for the morning Potassium 5.0 Acute on Chronic kidney disease stage III -Creatinine baseline 2.00 06/2023 -Creatinine 4.1, BUN 59. Essentially stable from yesterday. - caution with nephrotoxic's Transaminitis -In the setting of SIRS criteria and initiation of amiodarone, suspect secondary to medication effect and hypoperfusion from cardiogenic shock. - Elevated AST to 3600 ALT 1500, bilirubin 2.9. Repeat CMP this afternoon. No pain at this time. Stopping amiodarone drip COPD: DuoNebs every 6 hours prn. cont. Trelegy 100 inhaler. Tobacco dependance: nicotine patch. Smoking cessation advised, patient continues to smoke prior to admission DNR Cardiac diet ICU/Critical care attestation This patient is critically ill with 40 minutes devoted solely to this patient managing life/organ supporting interventions that required physician assessment. This includes time spent making adjustments in oxygen delivery, IV fluid administration, antibiotic dosing, adjustments of medications, discussion of patient with consultants and other care providers as well as updating patient and/or family (if patient by virtue of his/her condition is unable to participate in decision making). This does not include time spent performing separately billed procedures. Time is not concurrent with that of other providers.
[2023-10-27 08:04] LABS: Alkaline Phosphatase 84 U/L (38-126); Bilirubin,Total 2.9 mg/dl (0.2-1.3); Blood Urea Nitrogen 59 mg/dl (9-20); Carbon Dioxide 26 mmol/L (22.0-30.0); Chloride 97 mmol/L (98-107); Creatinine Clearance Estimated 12 mL/min (50-200); Estimated Glomerular Filt Rate 14 ml/min (>60); GFR (African American) 17 ML/MIN (>60)
[2023-10-27 08:05] LABS: Albumin Level 3.2 g/dl (3.5-5.0); Albumin/Globulin Ratio 1.3 (1.1-1.8); Calcium 8.2 mg/dl (8.4-10.2); Globulin 2.5 g/dL (1.3-3.2); Glucose 142 mg/dl (74-100); Sodium 131 mmol/L (136-145); Total Protein,Serum 5.7 g/dl (6.3-8.2)
[2023-10-27 08:24] LABS: Alanine Aminotransferase 1533 U/L (12-78); Aspartate Amino Transferase 3666 U/L (17-59)
[2023-10-27] MEDS: CEFEPIME HCL 1 GM in 0.9 % SODIUM CHLORIDE 50 ML IV ×2 (08:47→21:19)
[2023-10-27] MEDS: MINERAL OIL ENEMA 133ML 133 ML RC (09:20)
[2023-10-27] MEDS: LEVALBUTEROL 1.25MG/3ML NEB 1.25 MG IH ×3 (09:40→20:53)
[2023-10-27] MEDS: FLUTICASONE/UMECLIDIN/VILANTER 100/62.5/25MCG INHALER 1 PUFF IH (09:45)
--- NOTE | 2023-10-27 09:45 | PC.NURSE ---
Tried to administer medications, pt took 2 pills PO and immediately vomited it up. 100mL emesis noted.
[2023-10-27] MEDS: FLUTICASONE PROP 50MCG NASAL SPRAY 16GM 1 SPRAY NS (10:03)
[2023-10-27] MEDS: DOCUSATE SODIUM 100 MG CAPSULE PO (11:05)
[2023-10-27] MEDS: *PAT OWN MED* PANTOPRAZOLE 40MG TABLET 40 MG PO (11:05)
[2023-10-27] MEDS: AMIODARONE 400 MG 200 EACH PO ×2 (11:05→21:18)
[2023-10-27] MEDS: APIXABAN 5MG TABLET 2.5 MG PO ×2 (11:05→21:19)
[2023-10-27] MEDS: POLYETHYLENE GLYCOL 3350 17 GM PACKET PO (11:06)
[2023-10-27] MEDS: METOPROLOL SUCCINATE XL 25MG TABLET 25 MG PO ×2 (11:06→21:19)
--- NOTE | 2023-10-27 11:12 | PC.NURSE ---
Pt took medication in apple sauce at this time. Pt has held down meds so far.
--- NOTE | 2023-10-27 11:19 | PC.NURSE ---
Amio drip stopped at this time per Dr. Strange
[2023-10-27] MEDS: MILRINONE LACTATE 20 MG in 0.9 % SODIUM CHLORIDE 80 ML 4.5 MG IV (12:04)
--- NOTE | 2023-10-27 13:44 | PC.NURSE ---
Pt up to chair at this time
--- NOTE | 2023-10-27 16:54 | PC.NURSE ---
Pt is alert and oriented. Pt has been up to the chair this shift with assist x2, now back to bed. Pt has urinated twice this shift in the urinal independently with 60mL total out, urine is reddish brown and clear. Pt has had no complaints throughout shift. Hospice did come to speak with the family, family states they would like to proceed with hospice services, they have been contacted. Pt bowel sounds are hypoactive. Abdomen is soft and nontender. Lungs sounds inspiratory wheezing noted. Pt remains on the milrinone drip, currently infusing at 2.5mL/hr.
[2023-10-27 18:06] LABS: Chloride 96 mmol/L (98-107); Potassium 5.3 mmoL/L (3.5-5.1); Sodium 133 mmol/L (136-145)
[2023-10-27 18:09] LABS: Albumin Level 3.4 g/dl (3.5-5.0); Albumin/Globulin Ratio 1.4 (1.1-1.8); Alkaline Phosphatase 104 U/L (38-126); Anion Gap 18.3 mEq/L (5-15); Bilirubin,Total 2.6 mg/dl (0.2-1.3); Blood Urea Nitrogen 76 mg/dl (9-20); Carbon Dioxide 24 mmol/L (22.0-30.0); Creatinine Clearance Estimated 9 mL/min (50-200); Estimated Glomerular Filt Rate 11 ml/min (>60); GFR (African American) 13 ML/MIN (>60); Globulin 2.4 g/dL (1.3-3.2); Total Protein,Serum 5.8 g/dl (6.3-8.2)
[2023-10-27 18:10] LABS: Calcium 8.5 mg/dl (8.4-10.2); Glucose 122 mg/dl (74-100)
[2023-10-27 18:18] LABS: Alanine Aminotransferase 1946 U/L (12-78)
[2023-10-27 18:26] LABS: Aspartate Amino Transferase 4622 U/L (17-59)
--- NOTE | 2023-10-27 19:06 | PC.NURSE ---
Milrinone drip turned off at this time per Dr. Strange.
[2023-10-28] VITALS (10 sets, daily range): BP systolic 96–111; BP diastolic 57–85; PULSE 81–96; RESP 14–20; TEMP 36.7; O2SAT 89–96; BMI 23.3
[2023-10-28] MEDS: LEVALBUTEROL 1.25MG/3ML NEB 1.25 MG IH ×3 (06:01→13:41)
[2023-10-28] MEDS: FLUTICASONE/UMECLIDIN/VILANTER 100/62.5/25MCG INHALER 1 PUFF IH (06:15)
[2023-10-28 06:37] LABS: Basophils % 0.2 % (0.1-2.0); Eosinophils % 0.1 % (0.1-12.0); Hematocrit 29.6 % (42.0-52.0); Hemoglobin 9.7 g/dL (14.1-18.0); Lymphocytes # 5.1 K/mm3 (0.7-4.5); Lymphocytes % 26.6 % (10-50); Mean Corpuscular HGB Conc 32.9 g/dL (31.8-35.4); Mean Corpuscular Hemoglobin 29.3 pg (27.0-31.2); Mean Corpuscular Volume 89.2 fl (80-94); Mean Platelet Volume 12.1 fl (7.4-10.4); Monocytes # 0.6 K/mm3 (0.1-1.0); Neutrophils # 13.4 K/mm3 (1.8-7.8); Platelet Count 61 K/mm3 (142-424); Red Blood Count 3.32 M/mm3 (4.60-6.20); Red Cell Distribution Width 15.7 % (11.5-17.5); White Blood Count 19.2 K/mm3 (4.8-10.8)
[2023-10-28 06:40] LABS: MANUAL DIFFERENTIAL MANUAL DIFFERENTIAL (MANUAL DIFF)
[2023-10-28 07:34] LABS: Albumin Level 3.2 g/dl (3.5-5.0); Albumin/Globulin Ratio 1.3 (1.1-1.8); Alkaline Phosphatase 95 U/L (38-126); Anion Gap 12.5 mEq/L (5-15); Bilirubin,Total 2.5 mg/dl (0.2-1.3); Calcium 7.9 mg/dl (8.4-10.2); Carbon Dioxide 27 mmol/L (22.0-30.0); Chloride 97 mmol/L (98-107); Creatinine Clearance Estimated 9 mL/min (50-200); Estimated Glomerular Filt Rate 10 ml/min (>60); GFR (African American) 12 ML/MIN (>60); Globulin 2.4 g/dL (1.3-3.2); Glucose 100 mg/dl (74-100); Potassium 4.5 mmoL/L (3.5-5.1); Sodium 132 mmol/L (136-145); Total Protein,Serum 5.6 g/dl (6.3-8.2)
[2023-10-28 08:07] LABS: Alanine Aminotransferase 1614 U/L (12-78)
[2023-10-28 08:09] LABS: Blood Urea Nitrogen 83 mg/dl (9-20)
--- NOTE | 2023-10-28 08:27 | DIET.NUTRFU ---
Patients po intake continues to either be poor, refused or NPO at that meal. Patient and family are planning to admit to hospice for comfort. Labs reviewed, urine output poor, LBM 10/26 x4. No other dietary needs at this time.
[2023-10-28 08:44] LABS: Aspartate Amino Transferase 2688 U/L (17-59)
[2023-10-28 08:51] LABS: Magnesium 2.4 mg/dl (1.6-2.3)
[2023-10-28 08:53] LABS: Lymphocytes % 21 % (10-50); Monocytes % 6 % (2-9); Neutrophils % 70 % (42-76); Total Cells Counted 100
[2023-10-28 08:56] LABS: RBC Morphology Normal
[2023-10-28 09:02] LABS: Platelet Estimate Moderate Decrease
[2023-10-28] MEDS: CEFEPIME HCL 1 GM in 0.9 % SODIUM CHLORIDE 50 ML IV (09:35)
[2023-10-28] MEDS: METOPROLOL SUCCINATE XL 25MG TABLET 25 MG PO (09:35)
[2023-10-28] MEDS: AMIODARONE 400 MG 200 EACH PO (09:36)
[2023-10-28] MEDS: *PAT OWN MED* PANTOPRAZOLE 40MG TABLET 40 MG PO (09:36)
[2023-10-28] MEDS: FLUTICASONE PROP 50MCG NASAL SPRAY 16GM 1 SPRAY NS (10:20)
--- NOTE | 2023-10-28 11:42 | PC.NURSE ---
Courtesy Round Patient asleep with visitor at bedside. Trash emptied and linens. Ice water not refilled at this time. Call light within reach
--- NOTE | 2023-10-28 13:24 | P.DS_ITS ---
General Admission date:: 10/21/23 Discharge date: 10/28/23 HPI HPI HPI: This is a 88-year-old male with PMHx of atrial fibrillation on anticoagulation, COPD not on home oxygen, CHF status post pacemaker placement, CAD, with who presents emergency department for evaluation of constipation. Patient has had a bowel movement in 3 days. He is intermittently passing flatus. Constipation is refractory to multiple [id number] interventions at home. No other acute complaints at this time. Of note he is currently being managed for his heart failure where they are adjusting his diuretic regimen on an outpatient basis. Patient is still voiding appropriately however does have some difficulty straining. Admitted for treatment and management. Hospital Course Hospital Course Hospital Course: Patient and family decided to opt in for hospice, equipment service associate was present and patient family enrolled into hospice, SW and nurse case management also involved and provided eduction for decisoiion making, patient POA verbalized understanding of the hospice process and wished to be enrolled in hospice, patient wants to be discharged with home hospice. Patient family was informed all the blood work results on the day of dc. Patient will be discharged with PO abx as well. 88-year-old male with PMHx of atrial fibrillation on anticoagulation, COPD not on home oxygen, CHF status post pacemaker placement, CAD, with who presents emergency department for evaluation of constipation. Patient has had a bowel movement in [address] imaging reviewed, shows small volume ascites but no obvious bowel obstruction or other significant pathology. He has no significant stool burden. labs are obatained and there are significant for TIO and critical hypokalemia. Discussion made with ER provider. Agreed for admission. Patient's kidney function remains abnormal. Continuing milrinone for cardiogenic shock. Liver enzymes worse today. On 2 L nasal cannula. Continues to require inpatient management. Discussed consulting hospice today. Family interested. 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 cont. Trelegy 100 inhaler. Tobacco dependance: nicotine patch. Smoking cessation advised, patient continues to smoke prior to admission DNR Cardiac diet Exam Data for Last 24 hours Vital signs and Labs for Last 24 Hours: Temp Pulse Resp BP Pulse Ox O2 Del Method O2 Flow Rate 98.1 F 90 18 99/64 L 92 L Room Air 2 10/28/23 12:00 10/28/23 12:00 10/28/23 12:00 10/28/23 12:00 10/28/23 12:00 10/28/23 12:00 10/28/23 02:00 FiO2 32 10/25/23 18:59 Laboratory Results - last 24 hr 10/27/23 17:40: Sodium 133 L, Potassium 5.3 H, Chloride 96 L, Carbon Dioxide 24, Anion Gap 18.3 H, BUN 76 H D, Creatinine 5.10 H D, Estimated Creat Clear 9, Estimated GFR 11 L*, Est GFR ( Amer) 13 L* D, Glucose 122 H, Calcium 8.5, Total Bilirubin 2.6 H, AST 4622 H* D, ALT 1946 H*, Alkaline Phosphatase 104, Total Protein 5.8 L, Albumin 3.4 L, Globulin 2.4, Albumin/Globulin Ratio 1.4 10/28/23 06:20: WBC 19.2 H, RBC 3.32 L, Hgb 9.7 L, Hct 29.6 L, MCV 89.2, MCH 29.3, MCHC 32.9, RDW 15.7, Plt Count 61 L, MPV 12.1 H, Neut % (Auto) 70.0, Lymph % (Auto) 26.6, [place] % (Auto) 3.0, Eos % (Auto) 0.1, Baso % (Auto) 0.2, Neut # (Auto) 13.4 H, Lymph # (Auto) 5.1 H, [place] # (Auto) 0.6, Eos # (Auto) 0.0, Baso # (Auto) 0.0, Total Counted 100, Neutrophils % (Manual) 70, Band Neutrophils % 3.0, Lymphocytes % (Manual) 21, Monocytes % (Manual) 6, Platelet Estimate Moder ate decrease, RBC Morphology Normal, Sodium 132 L, Potassium 4.5, Chloride 97 L, Carbon Dioxide 27, Anion Gap 12.5, BUN 83 H, Creatinine 5.50 H, Estimated Creat Clear 9, Estimated GFR 10 L*, Est GFR ( Amer) 12 L*, Glucose 100, Calcium 7.9 L, Magnesium 2.4 H, Total Bilirubin 2.5 H, AST 2688 H* D, ALT 1614 H*, Alkaline Phosphatase 95, Total Protein 5.6 L, Albumin 3.2 L, Globulin 2.4, Albumin/Globulin Ratio 1.3 I & O for Last 24 hours: Intake & Output 10/25/23 10/26/23 10/27/23 10/28/23 23:59 23:59 23:59 23:59 Intake Total 1691.5 / 1696.5 535.625 / 873.625 547.509 / 597.509 50 / 50 Output Total 2640 / 2640 700 / 700 160 / 160 550 / 550 Balance -948.5 / -943.5 -164.375 / 173.625 387.509 / 437.509 -500 / -500 Weight 61.915 kg 63.304 kg 63.276 kg 67.273 kg Microbiology Reports for the Last 24 Hours: Microbiology 10/26/23 09:11 Blood Blood Culture - Preliminary 10/26/23 09:05 Blood Blood Culture - Preliminary Constitutional Comments: Constitutional: Present mild distress, average body habitus and chronically ill appearing, on room air Head: Present atraumatic ENT: Present normal exam Comment:: Sheath in right IJ Respiratory: Present normal respiratory effort; Absent accessory muscle use, rhonchi, wheezes or crackles Cardiac: Present Regular Rhythm, Systolic Murmur and Tachycardia GI: Present soft and diminished bowel sounds; Absent distention or tenderness Extremities: Present normal inspection and full ROM; Absent edema Comment:: Midline and right upper arm Skin: Present intact; Absent erythema Neuro: Present Grossly Intact, alert, awake and moves all extremities Results Data Completed and Pending Labs on day of discharge: Labs from last 24 hours 10/28/23 10/27/23 06:20 17:40 WBC 19.2 H RBC 3.32 L Hgb 9.7 L Hct 29.6 L MCV 89.2 MCH 29.3 MCHC 32.9 RDW 15.7 Plt Count 61 L MPV 12.1 H Neut % (Auto) 70.0 Lymph % (Auto) 26.6 [place] % (Auto) 3.0 Eos % (Auto) 0.1 Baso % (Auto) 0.2 Neut # (Auto) 13.4 H Lymph # (Auto) 5.1 H [place] # (Auto) 0.6 Eos # (Auto) 0.0 Baso # (Auto) 0.0 Total Counted 100 Neutrophils % (Manual) 70 Band Neutrophils % 3.0 Lymphocytes % (Manual) 21 Monocytes % (Manual) 6 Platelet Estimate Moderate decrease RBC Morphology Normal Sodium 132 L 133 L Potassium 4.5 5.3 H Chloride 97 L 96 L Carbon Dioxide 27 24 Anion Gap 12.5 18.3 H BUN 83 H 76 H D Creatinine 5.50 H 5.10 H D Estimated Creat Clear 9 9 Estimated GFR 10 L* 11 L* Est GFR ( Amer) 12 L* 13 L* D Glucose 100 122 H Calcium 7.9 L 8.5 Magnesium 2.4 H Total Bilirubin 2.5 H 2.6 H AST 2688 H* D 4622 H* D ALT 1614 H* 1946 H* Alkaline Phosphatase 95 104 Total Protein 5.6 L 5.8 L Albumin 3.2 L 3.4 L Globulin 2.4 2.4 Albumin/Globulin Ratio 1.3 1.4 Preliminary micro results at discharge 10/26/23 09:11 Blood Culture - Preliminary Blood 10/26/23 09:05 Blood Culture - Preliminary Blood DS: Diagnosis Discharge Diagnosis (1) Sepsis: Status: Acute Code(s): A41.9 - Sepsis, unspecified organism (2) HFrEF (heart failure with reduced ejection fraction): Status: Acute Code(s): I50.20 - Unspecified systolic (congestive) heart failure (3) TIO (acute kidney injury): Status: Acute Code(s): N17.9 - Acute kidney failure, unspecified (4) Transaminitis: Status: Acute Code(s): R74.01 - Elevation of levels of liver transaminase levels (5) Acute hypokalemia: Status: Acute Code(s): E87.6 - Hypokalemia (6) Constipated: Status: Acute Code(s): K59.00 - Constipation, unspecified Qualifiers: Constipation type: unspecified constipation type Qualified Code(s): K59.00 - Constipation, unspecified (7) Tobacco dependence: Status: Acute Code(s): F17.200 - Nicotine dependence, unspecified, uncomplicated Meds Home Medications and Allergies Home Medications Medication Instructions Recorded Confirmed Type rosuvastatin 40 mg tablet (Crestor) 40 mg PO DAILY Cholesterol 07/22/23 10/21/23 History apixaban 5 mg tablet (Eliquis) 2.5 mg PO BID #60 tabs 07/24/23 10/21/23 Rx amiodarone 400 mg tablet 200 mg PO BID #60 tabs 07/29/23 10/21/23 Rx sacubitril 24 mg-valsartan 26 mg 1 tab PO BID #60 tabs 08/01/23 10/21/23 Rx tablet (Entresto) metoprolol succinate 25 mg 25 mg PO HS 08/19/23 10/21/23 History tablet,extended release 24 hr pantoprazole 40 mg tablet,delayed 40 mg PO DAILY #30 tabs 09/16/23 10/21/23 Rx release dapagliflozin propanediol 10 mg 10 mg PO DAILY 10/21/23 10/21/23 History tablet (Farxiga) furosemide 80 mg tablet 40 mg PO DAILYP PRN Edema 10/21/23 10/21/23 History amoxicillin 875 mg-potassium 1 tab PO BID #20 tabs 10/28/23 Rx clavulanate 125 mg tablet New Prescriptions to Start Prescriptions: amoxicillin-pot clavulanate Braydon Hong Allergies Allergy/AdvReac Type Severity Reaction Status Date / Time No Known Allergies Allergy Verified 09/16/23 10:10 Discharge Plan Disposition Patient Disposition: Hospice - Home Discharge Order Discharge Orders: Discharge Order (Routine); Ordered 10/28/23 Ordered By: Braydon Hong Follow up Plan Prescriptions/Medication Reconciliation: New amoxicillin-pot clavulanate 875-125 mg tablet 1 tab PO BID Qty: 20 0RF Continued metoprolol succinate 25 mg tablet extended release 24 hr 25 mg PO HS Patient Comments: TAKE 1 TABLET BY MOUTH ONCE DAILY DO NOT CRUSH OR CHEW amiodarone 400 mg tablet 200 mg PO BID Qty: 60 2RF pantoprazole 40 mg tablet,delayed release (DR/EC) 40 mg PO DAILY Qty: 30 6RF Entresto 24-26 mg tablet 1 tab PO BID Qty: 60 0RF Eliquis 5 mg Tablet 2.5 mg PO BID Qty: 60 0RF furosemide 80 mg tablet 40 mg PO DAILYP PRN (Reason: Edema) Farxiga 10 mg Tablet 10 mg PO DAILY rosuvastatin [Crestor] 40 mg tablet 40 mg PO DAILY Problem Reconciliation Problems Reviewed?: Yes Patient Discharge Instructions ACTIVITY: Up with assistance DIET: advance to your usual diet Additional Instructions: follow up with hospice team Patient Instructions: DI for Heart Failure, DI for Cardiac Catheterization, DI for Constipation, DI for Hypokalemia, DI for Surgical Site Infection, Surgical Site Infection, DI for Acute Kidney Injury Providers Primary Care Provider: Provider,Referral Admit Provider: Braydon Hong Attending Provider: Braydon Hong
--- NOTE | 2023-10-28 14:10 | PC.NURSE ---
[id number] left message with hoang walls about what medications need to be stopped per cardiology. awaiting response
--- NOTE | 2023-10-28 15:23 | PC.NURSE ---
1500 call received back from hoang walls. meds to stop on dc are: amiodarone winsomeis mino mosley. [id number] Dr Hong notified via phone of meds to be stopped per pharmacy recommendations.
== END 2023-10-28 15:50 | disposition hospice, home (50) | DRG 871 ==
LOC: ER 22:32 → 2ND 10-21 01:10
PROVIDERS: Internal Medicine; Internal Medicine Adolescent Medicine; Nurse Practitioner Family; Admitting Provider Internal Medicine; Emergency Provider Emergency Medicine; Visit Provider Internal Medicine
PROC: 4A023N6 Measurement of Cardiac Sampling and Pressure, Right Heart, Percutaneous Approach (ICD-10-PCS; principal; 2023-10-23 13:00)
DX: A41.9 Sepsis, unspecified organism (principal); I50.23 Acute on chronic systolic (congestive) heart failure; R57.0 Cardiogenic shock; N17.9 Acute kidney failure, unspecified; I48.19 Other persistent atrial fibrillation; Z51.5 Encounter for palliative care; E87.6 Hypokalemia; K59.00 Constipation, unspecified; F17.200 Nicotine dependence, unspecified, uncomplicated; J44.9 Chronic obstructive pulmonary disease, unspecified; I27.20 Pulmonary hypertension, unspecified; N18.30 Chronic kidney disease, stage 3 unspecified; I50.82 Biventricular heart failure; Z86.711 Personal history of pulmonary embolism; I08.1 Rheumatic disorders of both mitral and tricuspid valves
CPT/HCPCS: 36410; 36415; 71045; 74018; 74176; 80048; 80053; 81001; 82810; 83735; 85007; 85025; 87040; 87086; 87632; 87635; 93306; 93451; 94640; 94760; 94761; 97163; 97165; 99152; 99291; C1751; C1894; J0282; J0692; J1644; J2260; J2405; J7060